=== PATIENT | female | born 1935 | race Hispanic/Latino ===

== ENCOUNTER 2019-05-14 18:56 | Emergency (ER) | payer OTHER ==
[~2019-05-14] VITALS: Ht 157.5 cm; Wt 48.1 kg
--- OUTSIDE RECORDS SUMMARY | 2019-05-14 18:59 | XMS REPORT | Clinical Summary ---
Author Author [facility] Address Unknown Phone Unavailable Care Team Providers Care Certified Surgical Tech/First Assistant Name Role Phone Carolyne Hogan MD PCP Allergies Comments Active Allergy Reactions Severity Noted Date Sulfa (Sulfonamide 01/23/2019 Antibiotics) Medications End Date Status Medication Sig Dispensed Refills Start Date Active losartan (COZAAR) 100 MG Take 100 mg 1 tablet by mouth 9 daily. Active amLODIPine (NORVASC) 10 Take 10 mg by 1 12/29/ mg tablet mouth daily. 9 Active ALPRAZolam (XANAX) 0.25 Take 0.25 mg 2 11/30/ MG tablet by mouth 2 9 (two) times a day as needed. Active traMADol-acetaminophen Take 1 tablet 0 (ULTRACET) 37.5-325 mg by mouth 9 per tablet every 12 (twelve) hours as needed. for pain Active Problems No known active problems Encounters Care Team Description Date Type Specialty Koffi Hernandez MD Primary osteoarthritis of right shoulder (Primary Dx); Chronic right shoulder pain; Contracture of joint of finger of right hand 04/04/2019 Office Visit Sports Medicine Reyna Maguire MD Bilateral hearing loss due to cerumen impaction (Primary Dx) 01/23/2019 Office Visit Otolaryngology after 05/13/2018 Social History Date Tobacco Use Types Packs/Day Years Used Never Smoker Smokeless Tobacco: Never Used Drinks/Week oz/Week Comments Alcohol Use No Alcohol Habits Answer Date Recorded How often do you have a drink containing alcohol? Never 01/23/2019 How many drinks containing alcohol do you have on Not asked a typical day when you are drinking? How often do you have six or more drinks on one Not asked occasion? Sex Assigned at Date Recorded Not on file Industry Job Start Date Occupation Not on file Not on file Not on file Travel End Travel History Travel Start No recent travel history available. Last Filed Vital Signs Reading Time Taken Comments Vital Sign 135/60 04/04/2019 9:35 AM CDT Blood Pressure 61 04/04/2019 9:35 AM CDT Pulse - - Temperature - - Respiratory Rate - - Oxygen Saturation - - Inhaled Oxygen Concentration - - Weight - - Height - - Body Mass Index Plan of Treatment Health Maintenance Due Date Last Done Comments SHINGLES VACCINES (#1) 1985 65+ PNEUMOCOCCAL VACCINE 01/07/2000 (1 of 2 - PCV13) INFLUENZA VACCINE 04/11/2019 Procedures Comments Procedure Name Priority Date/Time Associated Diagnosis XR SHOULDER 2+ VW RIGHT Routine 04/04/2019 Sprain of right shoulder, 10:02 AM CDT unspecified shoulder sprain type, initial encounter HI ARTHROCENTESIS Routine 04/04/2019 Primary osteoarthritis of ASPIR&/INJ MAJOR JT/BURSA 9:30 AM CDT right shoulder W/O US Chronic right shoulder pain after 05/13/2018 Results * XR Shoulder 2+ Vw Right (04/04/2019 10:02 AM CDT) Specimen Narrative Performed At [facility] Moderate glenohumeral joint space narrowing with scattered osteophytes. No obvious fractures or dislocations Performing Organization Address City/State/Zipcode Phone Number [facility] [address] [place] [address] * Large Joint Arthrocentesis: shoulder, R subacromial bursa (04/04/2019 9:30 AM CDT) Narrative Performed At Koffi Hernandez MD 04/04/2019 11:21 AM Large Joint Arthrocentesis: shoulder, R subacromial bursa Consent given by: patient Site marked: site marked Timeout: Immediately prior to procedure a time out was called to verify the correct patient, procedure, equipment, sales and support center agent and site/side marked as required Supporting Documentation Indications: pain Procedure Details Preparation: Patient was prepped and draped in the usual sterile fashion Location: shoulder - R subacromial bursa Right side: Needle size: 20 G Approach: lateral Right shoulder medications administered: 2 mL bupivacaine 0.25 % (2.5 mg/mL); 80 mg methylPREDNISolone acetate 80 mg/mL; 5 mL lidocaine 10 mg/mL (1 %) Patient tolerance: patient tolerated the procedure well with no immediate complications after 05/13/2018 Insurance Type Payer Benefit Subscriber ID Effective Phone Address Plan / Dates Group HMO BELA CRAMER xxxxxxxxx [id number] ANG kirby Advance Directives For more information, please contact: [phone] Patient Commission Sales Associate Explanation Type Date Recorded Advance Directives, Living Will and Medical Power of Hospice Care Transitions Coordinator
--- OUTSIDE RECORDS SUMMARY | 2019-05-14 19:02 | XMS REPORT | Summary of Care ---
Author Author [facility] Organization [facility] Address Unknown Phone Unavailable Care Team Providers Care Park Activities Coordinator Name Role Phone William Mittal PCP Encounter HQ Abigail(FIN) [phone] Date(s): 06/13/15 - 06/13/15 [facility] [address] [place] [address]- Discharge Diagnosis: GERD (gastroesophageal reflux disease) Discharge Disposition: Home Attending Physician: Izabela Patel DO Vital Signs Most recent to 1 2 oldest [Reference Range]: Height 157.48 cm (06/13/15 9:27 AM) Most recent to 1 2 oldest [Reference Range]: Temperature Oral 98.6 DegF 98.3 DegF [96.4-99.1 DegF] (06/13/15 1:00 PM) (06/13/15 9:27 AM) Most recent to 1 2 oldest [Reference Range]: Blood Pressure 132/74 mmHg 147/68 mmHg [90-140/60-90 mmHg] (06/13/15 1:00 PM) *HI* (06/13/15 9:27 AM) Most recent to 1 2 oldest [Reference Range]: Respiratory Rate 14 BRMIN 16 BRMIN [14-20 BRMIN] (06/13/15 1:00 PM) (06/13/15 9:27 AM) Most recent to 1 2 oldest [Reference Range]: Peripheral Pulse 78 bpm 72 bpm Rate [60-100 bpm] (06/13/15 1:00 PM) (06/13/15 9:27 AM) Most recent to 1 2 oldest [Reference Range]: Weight 47.727 kg (06/13/15 9:27 AM) Most recent to 1 2 oldest [Reference Range]: Body Mass Index 19.24 m2 (06/13/15 9:27 AM) Problem List Condition Effective Dates Status Health Status Informant Acute gastritis1 Resolved Benign essential 06/10/13 Active hypertension2 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, 4 CVA - Resolved Cerebrovascular accident(Confirmed) Diabetes mellitus Active type 2, controlled, with complications(Confir med) Dysphagia5, 6 11/12/14 Active Gastritis(Confirmed) Active Hernia of anterior 10/15/14 Active abdominal wall7, 8 Hyperlipidemia9, 10 10/15/14 Active Ysesveawwrtxhuj97 06/10/13 Active Hyperthyroidism(Conf Resolved irmed) Lntobnvwxill51, 13 11/27/14 Active Impacted zdpmrxi07 05/26/14 Resolved 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 2Data migrated from [employer] on 02/07/15. 3Data migrated from [employer] on 03/18/15. 4Data migrated from [employer] on 02/10/15. 5Data migrated from [employer] on 03/18/15. 6Data migrated from [employer] on 02/10/15. 7Data migrated from [employer] on 03/18/15. 8Data migrated from [employer] on 02/10/15. 9Data migrated from [employer] on 03/18/15. 10Data migrated from [employer] on 02/10/15. 11Data migrated from [employer] on 02/07/15. 12Data migrated from [employer] on 03/18/15. 13Data migrated from [employer] on 02/10/15. 14Data migrated from [employer] on 03/28/15. 15Data migrated from [employer] on 02/07/15. 16Data migrated from [employer] on 02/07/15. 17Data migrated from [employer] on 03/18/15. 18Data migrated from [employer] on 02/10/15. 19Data migrated from [employer] on 03/18/15. 20Data migrated from [employer] on 02/10/15. 21Data migrated from [employer] on 03/18/15. 22Data migrated from [employer] on 02/10/15. 23Data migrated from [employer] on 03/18/15. 24Data migrated from [employer] on 02/10/15. Allergies, Adverse Reactions, Alerts Substance Reaction Severity Status sulfa Active sulfa drugs1 Active 1Data migrated from [employer] on 04/09/15. Originally documented as SULFA. Medications famotidine 20 mg, 1 tab, Route: PO, Drug form: TAB, ONCE, Dosing Weight 47.727, kg, Priorit y: STAT, Start date: 06/13/15 11:04:00, Stop date: 06/13/15 11:04:00 Notes: (Same as: Pepcid) Start Date: 06/13/15 Stop Date: 06/13/15 Status: Completed Results No data available for this section Immunizations No data available for this section Procedures Procedure Date Related Diagnosis Body Site Endoscopy1 02/2015 Examining eye 02/2015 Bone density scan2 11/26/14 Diabetic foot examination 10/2014 Mammogram 10/2013 Bypass3 02/2013 Cholecystectomy 1980 Hysterectomy 1979 section 1Hiatus Hernia, severe gastritis 2Osteopenia left hip 3Bypass of the right leg Social History Social History Type Response Alcohol Past Smoking Status Former smoker; Type: Cigarettes; Number of years: 24; Started at age: 22.0; Stopped at age: 46; Previous treatment: None; Exposure to Tobacco Smoke None; Cigarette Smoking Last 365 Days No; Reg Smoking Cessation Counseling No Assessment and Plan No data available for this section
--- OUTSIDE RECORDS SUMMARY | 2019-05-14 19:02 | XMS REPORT | Summary of Care ---
Author Author [facility] Organization [facility] Address Unknown Phone Unavailable Care Team Providers Care Staple Side Laster Name Role Phone William Mittal PCP Encounter HQ Janethr_yuly(FIN) [phone] Date(s): 06/12/15 - 06/12/15 [facility] [address] [place] [address]- Discharge Diagnosis: Odynophagia Discharge Disposition: Home Attending Physician: Alina Camarena DO Vital Signs Most recent to 1 2 oldest [Reference Range]: Height 157.48 cm (06/12/15 5:12 PM) Most recent to 1 2 oldest [Reference Range]: Temperature Oral 98.0 DegF [96.4-99.1 DegF] (06/12/15 5:12 PM) Most recent to 1 2 oldest [Reference Range]: Blood Pressure 161/74 mmHg 150/73 mmHg [90-140/60-90 mmHg] *HI* *HI* (06/12/15 6:09 PM) (06/12/15 5:12 PM) Most recent to 1 2 oldest [Reference Range]: Respiratory Rate 18 BRMIN 18 BRMIN [14-20 BRMIN] (06/12/15 6:09 PM) (06/12/15 5:12 PM) Most recent to 1 2 oldest [Reference Range]: Peripheral Pulse 87 bpm 91 bpm Rate [60-100 bpm] (06/12/15 6:09 PM) (06/12/15 5:12 PM) Most recent to 1 2 oldest [Reference Range]: Weight 45.455 kg (06/12/15 5:12 PM) Most recent to 1 2 oldest [Reference Range]: Body Mass Index 18.33 m2 (06/12/15 5:12 PM) Problem List Condition Effective Dates Status Health Status Informant Acute gastritis1 Resolved Benign essential 06/10/13 Active hypertension2 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, 4 CVA - Resolved Cerebrovascular accident(Confirmed) Diabetes mellitus Active type 2, controlled, with complications(Confir med) Dysphagia5, 6 11/12/14 Active Gastritis(Confirmed) Active Hernia of anterior 10/15/14 Active abdominal wall7, 8 Hyperlipidemia9, 10 10/15/14 Active Gbggmgnxkwfuhdf42 06/10/13 Active Hyperthyroidism(Conf Resolved irmed) Nhvhxxeqckfe12, 13 11/27/14 Active Impacted uvtkmiy40 05/26/14 Resolved Mixed anxiety 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 21Data migrated from [facility] on 03/18/15. 22Data migrated from [facility] on 02/10/15. 23Data migrated from [facility] on 03/18/15. 24Data migrated from [facility] on 02/10/15. Allergies, Adverse Reactions, Alerts Substance Reaction Severity Status sulfa Active sulfa drugs1 Active 1Data migrated from [facility] on 04/09/15. Originally documented as SULFA. Medications famotidine 40 mg, Route: IVP, ONCE, Dosing Weight 45.455, kg, Priority: STAT, Start date: 1 17:43:00, Stop date: 06/12/15 17:43:00 Start Date: 06/12/15 Stop Date: 06/12/15 Status: Completed morphine Sulfate 4 mg, Route: IVP, ONCE, Dosing Weight 45.455, kg, Priority: STAT, Start date: 17:43:00, Stop date: 06/12/15 17:43:00 Start Date: 06/12/15 Stop Date: 06/12/15 Status: Completed ondansetron 4 mg, Route: IVP, Drug form: INJ, ONCE, Dosing Weight 45.455, kg, Priority: STAT , Start date: 06/12/15 17:43:00, Stop date: 06/12/15 17:43:00 Start Date: 06/12/15 Stop Date: 06/12/15 Status: Completed Sodium Chloride 0.9% (Bolus) IV 500 mL, 1,000 ml/hr, Infuse Over: 1 hr, Route: IV, ONCE, Priority: STAT, Dosing Weight 45.455 kg, Start date: 06/12/15 17:43:00, Duration: 1 doses or times, Sto p date: 06/12/15 17:43:00 Start Date: 06/12/15 Stop Date: 06/12/15 Status: Completed Sodium Chloride 0.9% IV 1,000 mL 1,000 mL, Rate: 75 ml/hr, Infuse over: 13.3 hr, Route: IV, Dosing Weight 45.455 kg, Total Volume: 1,000, Priority: STAT, Start date: 06/12/15 17:43:00, Duration : 1 doses or times, Stop date: 06/13/15 7:00:00 Start Date: 06/12/15 Stop Date: 06/12/15 Status: Discontinued Results ELECTROLYTES Most recent to 1 oldest [Reference Range]: Sodium Lvl [135-145 139 mEq/L mEq/L] (06/12/15 5:50 PM) Potassium Lvl 3.7 mEq/L [3.5-5.1 mEq/L] (06/12/15 5:50 PM) Chloride Lvl [95-109 104 mEq/L mEq/L] (06/12/15 5:50 PM) CO2 [24-32 mEq/L] 28 mEq/L (06/12/15 5:50 PM) AGAP [10.0-20.0 10.7 mEq/L mEq/L] (06/12/15 5:50 PM) CHEM PANEL Most recent to 1 oldest [Reference Range]: Creatinine Lvl 0.7 mg/dL [0.5-1.4 mg/dL] (06/12/15 5:50 PM) eGFR 82 mL/min/1.73m2 1 *NA* (06/12/15 5:50 PM) BUN [7-22 mg/dL] 18 mg/dL (06/12/15 5:50 PM) B/C Ratio [6-25] 26 *HI* (06/12/15 5:50 PM) Glucose Lvl [70-99 90 mg/dL mg/dL] (06/12/15 5:50 PM) Total Protein 7.6 g/dL [6.4-8.4 g/dL] (06/12/15 5:50 PM) Albumin Lvl [3.5-5.0 4.1 g/dL g/dL] (06/12/15 5:50 PM) Globulin [2.0-4.0 3.5 g/dL g/dL] (06/12/15 5:50 PM) A/G Ratio [0.7-1.6] 1.2 (06/12/15 5:50 PM) Calcium Lvl 9.5 mg/dL [8.5-10.5 mg/dL] (06/12/15 5:50 PM) ALT [0-65 unit/L] 25 unit/L (06/12/15 5:50 PM) AST [0-37 unit/L] 21 unit/L (06/12/15 5:50 PM) Alk Phos [39-136 83 unit/L unit/L] (06/12/15 5:50 PM) Bili Total [0.2-1.3 0.9 mg/dL mg/dL] (06/12/15 5:50 PM) Lipase Lvl [73-393 129 unit/L unit/L] (06/12/15 5:50 PM) 1Result Comment: The eGFR is calculated using the CKD-EPI formula. In most young, healthy individuals the eGFR will be >90 mL/min/1.73m2. The eGFR declines with age. An eGFR of 60-89 may be normal in some populations, particularly the elderly, for whom the CKD-EPI formula has not been extensively validated. Use of the eGFR is not recommended in the following populations: Individuals with unstable creatinine concentrations, including patients and those with serious co-morbid conditions. Patients with extremes in muscle mass or diet. The data above are obtained from the National Kidney Disease Education Program ( NKDEP) which additionally recommends that when the eGFR is used in patients with extremes of body mass index for purposes of drug dosing, the eGFR should be mul tiplied by the estimated BMI. HEMATOLOGY Most recent to 1 oldest [Reference Range]: WBC [3.7-10.4 K/CMM] 9.1 K/CMM (06/12/15 5:50 PM) RBC [4.20-5.40 4.45 M/CMM M/CMM] (06/12/15 5:50 PM) Hgb [12.0-16.0 g/dL] 13.3 g/dL (06/12/15 5:50 PM) Hct [36.0-48.0 %] 40.5 % (06/12/15 5:50 PM) MCV [80.0-98.0 fL] 91.2 fL (06/12/15 5:50 PM) MCH [27.0-31.0 pg] 29.9 pg (06/12/15 5:50 PM) MCHC [32.0-36.0 32.8 g/dL g/dL] (06/12/15 5:50 PM) RDW [11.5-14.5 %] 14.2 % (06/12/15 5:50 PM) Platelet [133-450 193 K/CMM K/CMM] (06/12/15 5:50 PM) MPV [7.4-10.4 fL] 9.6 fL (06/12/15 5:50 PM) Segs [45.0-75.0 %] 76.4 % *HI* (06/12/15 5:50 PM) Lymphocytes 15.9 % [20.0-40.0 %] *LOW* (06/12/15 5:50 PM) Monocytes [2.0-12.0 5.9 % %] (06/12/15 5:50 PM) Eosinophils [0.0-4.0 1.1 % %] (06/12/15 5:50 PM) Basophils [0.0-1.0 0.7 % %] (06/12/15 5:50 PM) Segs-Bands # 6.9 K/CMM [1.5-8.1 K/CMM] (06/12/15 5:50 PM) Lymphocytes # 1.4 K/CMM [1.0-5.5 K/CMM] (06/12/15 5:50 PM) Monocytes # [0.0-0.8 0.5 K/CMM K/CMM] (06/12/15 5:50 PM) Eosinophils # 0.1 K/CMM [0.0-0.5 K/CMM] (06/12/15 5:50 PM) Basophils # [0.0-0.2 0.1 K/CMM K/CMM] (06/12/15 5:50 PM) Immunizations No data available for this section Procedures Procedure Date Related Diagnosis Body Site Endoscopy1 02/2015 Examining eye 02/2015 Bone density scan2 11/26/14 Diabetic foot examination 10/2014 Mammogram 10/2013 Bypass3 02/2013 Cholecystectomy 1979 Hysterectomy 1979 section 1Hiatus Hernia, severe gastritis [...]
--- OUTSIDE RECORDS SUMMARY | 2019-05-14 19:02 | XMS REPORT | Continuity of Care Document ---
Author Author [facility] Organization [facility] Address Unknown Phone Unavailable Care Team Providers Care Computer Numerical Control Grinder Name Role Phone [facility] Unavailable Unavailable Problems Problem Status Onset Date Classification Date Reported Comments Source K21.9=GERD WO ESOPHAGITIS Active 04/24/2019 [facility] DX: K22.70=MCCLAIN'S ESOPHAGUS WITHOUT D Active 04/10/2019 [facility] K21.9 GASTRO-ESOPHAGEAL REFLUX DISEASE W Active 12/04/2018 [facility] Gastro-esophageal reflux disease without esophagitis 07/10/2018 01/20/2019 [facility] J40 Active 01/11/2018 [facility] Unsteadiness on feet 10/17/2017 01/18/2018 [facility] [place] UNSTEADINESS ON FEET Active 09/06/2017 [facility] [place] DX: OSTEOPOROSIS Active 04/13/2017 [facility] Infection of urinary tract Resolved 07/07/2016 Problem 04/21/2017 [facility] Chronic shoulder pain14 Active 10/06/2015 Problem 04/01/2019 per phone call to referral office [facility] [place] Chronic shoulder pain18 Active 10/06/2015 Problem 04/21/2017 per phone call to referral office [facility] Shoulder pain (finding) Active 10/06/2015 Problem 05/07/2019 per phone call to referral office [facility] Discharge Diagnosis: GERD 07/02/2015 07/05/2015 [facility] ACID REFLEX Active 07/02/2015 [facility] Fundoplication4 Resolved 06/26/2015 Problem 04/01/2019 done at [facility] [place] Fundoplication7 Resolved 06/26/2015 Problem 04/21/2017 done at [facility] Fundoplication (procedure) Resolved 06/26/2015 Problem 05/07/2019 done at [facility] DIABETES / DIETARY SURV/ HTN / BMI/ NAUS Active 06/25/2015 [facility] Discharge Diagnosis: Acute gastritis 06/17/2015 06/20/2015 [facility] REFLUX Active 06/17/2015 [facility] TROUBLE SWALLOWING Active 06/13/2015 [facility] OTHER Active 06/12/2015 [facility] Discharge Diagnosis: Odynophagia 06/12/2015 06/15/2015 [facility] UNK Active 04/30/2015 [facility] 787.2, 530.11, 533.00, 553.3 Active 04/30/2015 [facility] 787.2,530.11,535.00,553.3 Active 04/14/2015 [facility] 787.20,530.11,535.00,553.3 Active 04/14/2015 [facility] Xvltpsgmzywf49, 20 Active 11/27/2014 Problem 05/17/2015 Data migrated from [employer] on 03/18/15. Data migrated from [employer] on 02/10/15. 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 Data migrated from [employer] on 02/10/15. [facility] Phnqupleslbd36, 13 Active 11/27/2014 Problem 07/05/2015 Data migrated from [employer] on 03/18/15. Data migrated from [employer] on 02/10/15. [facility] OSTEOPENIA Active 11/24/2014 [facility] Dysphagia9, 10 Active 11/12/2014 Problem 05/17/2015 Data migrated from [employer] on 03/18/15. Data migrated from [employer] on 02/10/15. [facility] Dysphagia5, 6 Active 11/12/2014 Problem 04/21/2017 Data migrated from [employer] on 03/18/15. Data migrated from [employer] on 02/10/15. [facility] THROAT PAIN Active 11/07/2014 [facility] DYSPHAGIA, INABILITY TO TOLERATE FOOD Active 11/07/2014 [facility] Cobalamin deficiency3, 4 Active 10/15/2014 Problem 04/21/2017 Data migrated from [employer] on 03/18/15. Data migrated from [employer] on 02/10/15. [facility] Disorder of vision7, 8 Active 10/15/2014 Problem 05/17/2015 Data migrated from [employer] on 03/18/15. Data migrated from [employer] on 02/10/15. [facility] Foot pain11, 12 Active 10/15/2014 Problem 05/17/2015 Data migrated from [employer] on 03/18/15. Data migrated from [employer] on 02/10/15. [facility] Hernia of anterior abdominal wall14, 15 Active 10/15/2014 Problem 05/17/2015 Data migrated from [employer] on 03/18/15. Data migrated from [employer] on 02/10/15. [facility] Dsscsfbxewjepd05, 17 Active 10/15/2014 Problem 05/17/2015 Data migrated from [employer] on 03/18/15. Data migrated from [employer] on 02/10/15. [facility] Cuaktrnwbo67, 25 Active 10/15/2014 Problem 05/17/2015 Data migrated from [employer] on 03/18/15. Data migrated from [employer] on 02/10/15. [facility] Peripheral vascular sabjgwm83, 27 Active 10/15/2014 Problem 05/17/2015 Data migrated from [employer] on 03/18/15. Data migrated from [employer] on 02/10/15. [facility] Screening - health check28, 29 Active 10/15/2014 Problem 05/17/2015 Data migrated from [employer] on 03/18/15. Data migrated from [employer] on 02/10/15. [facility] Screening for malignant neoplasm of colon30, 31 Active 10/15/2014 Problem 05/17/2015 Data migrated from [employer] on 03/18/15. Data migrated from [employer] on 02/10/15. [facility] Unsteady gait34, 35 Active 10/15/2014 Problem 05/17/2015 Data migrated from [employer] on 03/18/15. Data migrated from [employer] on 02/10/15. [facility] Vitamin D lryqwzcwsx70, 37 Active 10/15/2014 Problem 05/17/2015 Data migrated from [employer] on 03/18/15. Data migrated from [employer] on 02/10/15. [facility] Hernia of anterior abdominal wall7, 8 Active 10/15/2014 Problem 07/05/2015 Data migrated from [employer] on 03/18/15. Data migrated from [employer] on 02/10/15. [facility] Hyperlipidemia9, 10 Active 10/15/2014 Problem 07/05/2015 Data migrated from [employer] on 03/18/15. Data migrated from [employer] on 02/10/15. [facility] Xfhkjmcvly31, 18 Active 10/15/2014 Problem 07/05/2015 Data migrated from [employer] on 03/18/15. Data migrated from [employer] on 02/10/15. [facility] Peripheral vascular qcodonb25, 20 Active 10/15/2014 Problem 07/05/2015 Data migrated from [employer] on 03/18/15. Data migrated from [employer] on 02/10/15. [facility] Unsteady gait21, 22 Active 10/15/2014 Problem 07/05/2015 Data migrated from [employer] on 03/18/15. Data migrated from [employer] on 02/10/15. [facility] Vitamin D snwtjuozrn54, 24 Active 10/15/2014 Problem 07/05/2015 Data migrated from [employer] on 03/18/15. Data migrated from [employer] on 02/10/15. [facility] Cobalamin deficiency2, 3 Active 10/15/2014 Problem 04/01/2019 Data migrated from [employer] on 03/18/15. Data migrated from [employer] on 02/10/15. [facility] Group,[facility] [place] Hernia of anterior abdominal wall5, 6 Active 10/15/2014 Problem 04/01/2019 Data migrated from [employer] on 03/18/15. Data migrated from [employer] on 02/10/15. [facility] Group,[facility] [place] Hyperlipidemia7, 8 Active 10/15/2014 Problem 04/01/2019 Data migrated from [employer] on 03/18/15. Data migrated from [employer] on 02/10/15. [facility] Group,[facility] [place] Peripheral vascular huzkisp33, 13 Active 10/15/2014 Problem 04/01/2019 Data migrated from [employer] on 03/18/15. Data migrated from [employer] on 02/10/15. Medical Group,[facility] [place] Unsteady gait15, 16 Active 10/15/2014 Problem 04/01/2019 Data migrated from [employer] on 03/18/15. Data migrated from [employer] on 02/10/15. Medical Group,[facility] Vitamin D khsykillnm79, 18 Active 10/15/2014 Problem 04/01/2019 Data migrated from [employer] on 03/18/15. Data migrated from [employer] on 02/10/15. [facility] Group,[facility] [place] Hernia of anterior abdominal wall8, 9 Active 10/15/2014 Problem 04/21/2017 Data migrated from [employer] on 03/18/15. Data migrated from [employer] on 02/10/15. [facility] Cfcvzbvdnwqivy36, 11 Active 10/15/2014 Problem 04/21/2017 Data migrated from [employer] on 03/18/15. Data migrated from [employer] on 02/10/15. [facility] Peripheral vascular gngdsiv74, 17 Active 10/15/2014 Problem 04/21/2017 Data migrated from [employer] on 03/18/15. Data migrated from [employer] on 02/10/15. [facility] Unsteady gait19, 20 Active 10/15/2014 Problem 04/21/2017 Data migrated from [employer] on 03/18/15. Data migrated from [employer] on 02/10/15. [facility] Vitamin D hrdbyqacwy93, 22 Active 10/15/2014 Problem 04/21/2017 Data migrated from [employer] on 03/18/15. Data migrated from [employer] on 02/10/15. [facility] Cobalamin deficiency (disorder) Active 10/15/2014 Problem 05/07/2019 Data migrated from [employer] on 03/18/15. Data migrated from [employer] on 02/10/15. Medical [facility] Hernia of anterior abdominal wall (disorder) Active 10/15/2014 Problem 05/07/2019 Data migrated from [employer] on 03/18/15. Data migrated from [employer] on 02/10/15. [facility] Hyperlipidemia (disorder) Active 10/15/2014 Problem 05/07/2019 Data migrated from [employer] on 03/18/15. Data migrated from [employer] on 02/10/15. [facility] disease (disorder) Active 10/15/2014 Problem 05/07/2019 Data migrated from [employer] on 03/18/15. Data migrated from [employer] on 02/10/15. [facility] Unsteady gait (finding) Active 10/15/2014 Problem 05/07/2019 Data migrated from [employer] on 03/18/15. Data migrated from [employer] on 02/10/15. [facility] Vitamin D deficiency (disorder) Active 10/15/2014 Problem 05/07/2019 Data migrated from [employer] on 03/18/15. Data migrated from [employer] on 02/10/15. [facility] Impacted ebczgkg95 Resolved 05/26/2014 Problem 05/17/2015 Data migrated from [employer] on 03/28/15. [facility] Impacted qwpthji21 Resolved 05/26/2014 Problem 07/05/2015 Data migrated from [employer] on 03/28/15. [facility] Impacted Resolved 05/26/2014 Problem 04/21/2017 Data migrated from [employer] on 03/28/15. [facility] Mixed anxiety and depressive rvgzkeaz59 Active 05/08/2014 Problem 05/17/2015 Data migrated from [employer] on 02/07/15. [facility] Mixed anxiety and depressive fimadcvc41 Active 05/08/2014 Problem 07/05/2015 Data migrated from [employer] on 02/07/15. [facility] Mixed anxiety and depressive Active 05/08/2014 Problem 04/01/2019 Data migrated from [employer] on 02/07/15. [facility] Group,[facility] [place] Mixed anxiety and depressive kynfuvjx99 Active 05/08/2014 Problem 04/21/2017 Data migrated from [employer] on 02/07/15. [facility] Mixed anxiety and depressive disorder (disorder) Active 05/08/2014 Problem 05/07/2019 Data migrated from [employer] on 02/07/15. [facility] CHEST PAIN Active 10/17/2013 [facility] Benign essential hypertension2 Active 06/10/2013 Problem 04/21/2017 Data migrated from [employer] on 02/07/15. [facility] Hemiparesis as late effect of cerebrovascular ewolrdrh61 Active 06/10/2013 Problem 05/17/2015 Data migrated from [employer] on 02/07/15. [facility] Nfiujalcoolmnim36 Active 06/10/2013 Problem 05/17/2015 Data migrated from [employer] on 02/07/15. [facility] Xlunbhobhfdtfi58 Active 06/10/2013 Problem 05/17/2015 Data migrated from [employer] on 02/07/15. [facility] Sekjacrgqpvtglq41 Active 06/10/2013 Problem 07/05/2015 Data migrated from [employer] on 02/07/15. [facility] Iprlgmqibyulfm50 Active 06/10/2013 Problem 07/05/2015 Data migrated from [employer] on 02/07/15. [facility] Benign essential hypertension1 Active 06/10/2013 Problem 04/01/2019 Data migrated from [employer] on 02/07/15. [facility], [facility], [facility] [place] Hyperthyroidism9 Active 06/10/2013 Problem 04/01/2019 Data migrated from [employer] on 02/07/15. [facility], [facility], [facility] [place] Axjfmbdzxneqru52 Active 06/10/2013 Problem 04/01/2019 Data migrated from [employer] on 02/07/15. [facility], [facility], [facility] [place] Tzibqzworgdhkjr50 Active 06/10/2013 Problem 04/21/2017 Data migrated from [employer] on 02/07/15. [facility] Bokfhukukfgygh22 Active 06/10/2013 Problem 04/21/2017 Data migrated from [employer] on 02/07/15. [facility] Benign essential hypertension (disorder) Active 06/10/2013 Problem 05/07/2019 Data migrated from [employer] on 02/07/15. [facility] Hyperthyroidism (disorder) Active 06/10/2013 Problem 05/07/2019 Data migrated from [employer] on 02/07/15. [facility] Osteoarthritis (disorder) Active 06/10/2013 Problem 05/07/2019 Data migrated from [employer] on 02/07/15. [facility] Group,[facility] Disorder associated with type 2 diabetes mellitus5, 6 Active 09/11/1959 Problem 05/17/2015 Data migrated from [employer] on 03/18/15. Data migrated from [employer] on 02/10/15. [facility] CVA - Cerebrovascular accident Resolved Problem 04/21/2017 [facility] Diabetes mellitus Active Problem 05/17/2015 [facility] DM (Confirmed) Active Problem 05/17/2015 [facility] HTN - Hypertension Active Problem 05/17/2015 [facility] Hyperthyroidism Resolved Problem 04/21/2017 [facility] Final: 05/17/2015 [facility] Acute gastritis1 Resolved Problem 04/21/2017 Data migrated from [employer] on 03/28/15. [facility] Gastritis Active Problem 04/21/2017 [facility] Diabetes mellitus type 2, controlled, with complications Active Problem 04/01/2019 [facility] [place] GERD (Confirmed) Active Problem 04/01/2019 [facility], [facility] [place] History of CVA (Confirmed) Active Problem 04/01/2019 [facility] [place] Osteoporosis Active Problem 04/01/2019 [facility], [facility] [place] UI (Confirmed) Active Problem 04/01/2019 [facility], [facility] [place] Constipation Active Problem 04/21/2017 [facility] Cerumen impaction Active Problem 04/21/2017 [facility] Elbow pain Active Problem 04/21/2017 [facility] PVD (Confirmed) Active Problem 04/21/2017 [facility] Recurrent urinary tract infection Active Problem 04/21/2017 [facility] Shoulder pain Active Problem 04/21/2017 [facility] Diabetes mellitus type 2, controlled Resolved Problem 04/21/2017 [facility] Infection, upper respiratory Active Problem 04/21/2017 [facility] Frail Elderly Active Problem 03/27/2018 [facility] [place] Knee pain Active Problem 09/09/2017 [facility] Muscle weakness 01/18/2018 [facility] [place] Other abnormalities of gait and mobility 01/18/2018 [facility] [place] Stiffness of right shoulder, not elsewhere classified 01/18/2018 [facility] [place] Stiffness of right knee, not elsewhere classified 01/18/2018 [facility] Type 2 diabetes mellitus without complications 01/18/2018 [facility] Essential hypertension 01/18/2018 [facility] Age-related osteoporosis without current pathological fracture 01/18/2018 [facility] Diaphragmatic hernia without obstruction or gangrene 01/18/2018 [facility] Pedal edema Active Problem 04/01/2019 [facility] Diabetic complication (disorder) Active Problem 05/07/2019 [facility] Edema of foot (finding) Active Problem 05/07/2019 [facility] Gastroesophageal reflux disease (disorder) Active Problem 05/07/2019 [facility] History of - CVA (context-dependent category) Active Problem 05/07/2019 [facility] Osteoporosis (disorder) Active Problem 05/07/2019 Medical [facility] Urinary incontinence (finding) Active Problem 05/07/2019 [facility] DYSPHAGIA NOS Active [facility] REFLUX ESOPHAGITIS Active [facility] ACUTE GASTRITIS Active [facility] DIAPHRAGMATIC HERNIA Active [facility] SINGLE LB/BY Active [facility] PALPITATIONS Active [facility] TYPE 2 DIABETES MELLITUS WITHOUT COMPLIC Active [facility] DIETARY COUNSELING AND SURVEILLANCE Active [facility] BODY MASS INDEX (BMI) 19 OR LESS, ADULT Active [facility] AGE-RELATED OSTEOPOROSIS W/O CURRENT PAT Active [facility] MCCLAIN'S ESOPHAGUS WITHOUT DYSPLASIA Active [facility] DYSPHAGIA, UNSPECIFIED Active [facility] GASTRO-ESOPHAGEAL REFLUX DISEASE WITHOUT Active [facility] Medications Medication Details Route Status Patient Instructions Ordering Provider Order Date Source amLODIPine 10 mg oral tablet 10 mg=1 tab, PO, Daily, # 90 tab, 1 Refill(s), [facility]acy: [id number] Active 05/03/2019 [facility] amLODIPine 5 mg oral tablet 5 mg=1 tab, PO, Daily, # 90 tab, 1 Refill(s), Pharmacy: [id number] Active 04/16/2019 [facility] tramadol hydrochloride 50 MG Oral Tablet 50 mg=1 tab, PO, Q8H, PRN Pain, X 20 day, # 60 tab, 0 Refill(s) Active 04/12/2019 [facility] Ergocalciferol 67903 UNT Oral Capsule 50,000 IntlUnit=1 cap, PO, qWeek, # 12 cap, 1 Refill(s), [id number] Active 03/21/2019 [facility] losartan 100 mg oral tablet =1 tab, PO, Daily, # 90 tab, 1 Refill(s), [id number] Active 03/21/2019 [facility] Esomeprazole 40 MG Enteric Coated Capsule 40 mg=1 cap, PO, Daily, # 90 cap, 1 Refill(s), [id number] Active 03/21/2019 [facility] amLODIPine 5 mg oral tablet 5 mg=1 tab, PO, Daily, # 90 tab, 1 Refill(s), [id number] Active 03/21/2019 [facility] Alendronic acid 70 MG Oral Tablet 70 mg=1 tab, PO, Q7D, with 6 to 8 ounces plain water, at least 30 minutes before first food, beverage, or medication of the day, # 12 tab, 3 Refill(s), [id number] Active 03/21/2019 [facility] DME Prescription See Instructions, MISC, ONCE, rolling walker, # 1 unit, 0 Refill(s) Active 03/01/2019 [facility] nitrofurantoin macrocrystals 100 mg oral capsule (Macrodantin) 100 mg=1 cap, PO, BID, X 7 day, # 14 cap, 0 Refill(s), [id number] Active 02/26/2019 [facility] Acetaminophen 325 MG / tramadol hydrochloride 37.5 MG Oral Tablet 1 tab, PO, Q12H, PRN Pain, X 20 day, # 40 tab, 0 Refill(s) Active 02/26/2019 [facility] Esomeprazole 40 MG Enteric Coated Capsule 40 mg=1 cap, PO, Daily, # 90 cap, 1 Refill(s), [id number] Active 02/07/2019 [facility] amLODIPine 5 mg oral tablet 5 mg=1 tab, PO, Daily, # 90 tab, 1 Refill(s), [id number] Active 01/24/2019 [facility] ciprofloxacin 500 mg oral tablet 500 mg=1 tab, PO, Q12H, for UTI, X 3 day, # 6 tab, 0 Refill(s), [id number] Active 01/03/2019 [facility] gabapentin 100 MG Oral Capsule 100 mg=1 cap, PO, BID, # 180 cap, 1 Refill(s), [id number] Active 12/18/2018 [facility] Diclofenac Sodium 0.01 MG/MG Topical Gel 4 gm=1 appl, TOP, QID, PRN for pain, # 100 gm, 2 Refill(s), [id number] Active 12/18/2018 [facility] irbesartan 150 mg oral tablet =1 tab, PO, Daily, # 30 tab, Refill(s) 5, [id number] No Longer Active 11/30/2018 [facility] ONE TOUCH DELICA LANCETS N/A LANC See Instructions, # 100 ea, Refill(s) 2, USE TO TEST BLOOD GLUCOSE ONCE DAILY, Pharmacy: [facility] No Longer Active 11/29/2018 [facility] ONE TOUCH VERIO STRIPS N/A STRIPS See Instructions, # 100 ea, Refill(s) 2, USE TO TEST BLOOD GLUCOSE ONCE DAILY, Pharmacy: [facility] No Longer Active 11/29/2018 [facility] tramadol hydrochloride 50 MG Oral Tablet 50 mg=1 tab, PO, Q12H, PRN Pain, X 20 day, # 40 tab, 0 Refill(s) No Longer Active 10/16/2018 [facility] carbamide peroxide 65 MG/ML Otic Solution [Debrox] 5 drp, BOTH EARS, TID, X 10 day, # 15 ml, 0 Refill(s), [id number] No Longer Active 10/15/2018 [facility] Diclofenac Sodium 0.01 MG/MG Topical Gel 4 gm=1 appl, TOP, QID, PRN for pain, # 100 gm, 2 Refill(s), [id number] No Longer Active 10/15/2018 [facility] amLODIPine 10 mg oral tablet See Instructions, TAKE 1 TABLET BY MOUTH EVERY DAY, # 90 tab, 1 Refill(s) No Longer Active 10/15/2018 [facility] irbesartan 150 mg oral tablet 150 mg=1 tab, PO, Daily, # 30 tab, 0 Refill(s) No Longer Active 10/15/2018 [facility] Famotidine 20 MG Oral Tablet =1 tab, PO, BID, # 120 tab, Refill(s) 1, Pharmacy: [facility] #[id number] No Longer Active 10/01/2018 [facility] tramadol hydrochloride 50 MG Oral Tablet 50 mg=1 tab, PO, BID, X 15 day, # 30 tab, 0 Refill(s) No Longer Active 08/31/2018 [facility] Esomeprazole 40 MG Enteric Coated Capsule 40 mg=1 cap, PO, Daily, # 90 cap, 0 Refill(s), given to patient Active 06/12/2018 [facility] Famotidine 20 MG Oral Tablet 20 mg=1 tab, PO, BID, # 120 tab, 1 Refill(s), Pharmacy: [facility]/pharmacy #[id number] No Longer Active 06/12/2018 [facility] DME Prescription See Instructions, MISC, ONCE, AFO, # 1 unit, 0 Refill(s) No Longer Active 05/04/2018 [facility] Diclofenac Sodium 0.01 MG/MG Topical Gel 4 gm=1 appl, TOP, BID, PRN Apply to affected area, # 100 gm, 1 Refill(s), Pharmacy: [facility]/pharmacy #[id number] Active 04/04/2018 [facility] tramadol hydrochloride 50 MG Oral Tablet 50 mg=1 tab, PO, Q8H, PRN Pain, # 60 tab, 0 Refill(s) Inactive 04/04/[facility] ondansetron 4 mg oral disintegrating strip 4 mg=1 ea, PO, TID, # 30 strip, 1 Refill(s), Pharmacy: [facility]/pharmacy #[id number] Active 03/24/2018 [facility] Brompheniramine Maleate 0.4 MG/ML / Dextromethorphan Hydrobromide 2 MG/ML / Pseudoephedrine Hydrochloride 6 MG/ML Oral Solution [Bromfed DM] 5 mL, PO, TID, PRN cough, X 10 day, # 150 mL, 0 Refill(s), Pharmacy: [facility]/pharmacy #[id number] Active 01/11/2018 [facility] Rocephin 1,000 mg, Route: IM, ONCE, Dosing Weight 43.636, kg, Start date: 01/11/18 9:30:00 CDT, Stop date: 01/11/18 9:30:00 CDT Inactive 01/11/2018 [facility] predniSONE 10 mg oral tablet 10 mg=1 tab, PO, Daily, X 5 day, # 5 tab, 0 Refill(s), [id number] 01/11/2018 [facility] Levofloxacin 500 MG Oral Tablet [Levaquin] 500 mg=1 tab, PO, Q24H, X 7 day, # 7 tab, 0 Refill(s), [id number] Active 01/11/2018 [facility] triamcinolone ACETONIDE 40 mg/mL injectable suspension 40 mg, Route: IM, ONCE, Dosing Weight 43.636, kg, Start date: 01/11/18 9:30:00 CDT, Stop date: 01/11/18 9:30:00 CDT Inactive 01/11/2018 [facility] Brompheniramine Maleate 0.4 MG/ML / Dextromethorphan Hydrobromide 2 MG/ML / Pseudoephedrine Hydrochloride 6 MG/ML Oral Solution [Bromfed DM] 5 mL, PO, TID, PRN cough, X 10 day, # 150 mL, 0 Refill(s), [id number] Active 01/01/2018 [facility] azithromycin 250 mg oral tablet 250 mg=1 tab, PO, Daily, take 2 tablets on the first day, 1 tablet daily to continue, X 5 day, # 6 tab, 0 Refill(s), [id number] Active 01/01/2018 [facility] Ondansetron 4 MG Disintegrating Tablet 4 mg=1 tab, PO, TID, PRN Nausea / Vomiting, Dissolve tab under tongue, # 10 tab, 0 Refill(s), Pharmacy: [facility]/pharmacy #[id number] No Longer Active 12/11/2017 [facility] gabapentin 100 MG Oral Capsule 100 mg=1 cap, PO, BID, # 90 cap, 1 Refill(s), Pharmacy: [facility]/pharmacy #[id number] Active 12/11/2017 [facility] valACYclovir 1 g oral tablet 1,000 mg, PO, TID, X 7 day, # 21 tab, 0 Refill(s), [id number] No Longer Active 12/11/2017 [facility] amLODIPine 10 mg oral tablet See Instructions, TAKE 1 TABLET BY MOUTH EVERY DAY, # 90 tab, 1 Refill(s) No Longer Active 12/05/2017 [facility] Esomeprazole 40 MG Enteric Coated Capsule [Nexium] 40 mg=1 cap, PO, Daily, # 90 cap, 1 Refill(s) Active 12/05/2017 [facility] Docusate Sodium 100 MG Oral Capsule 100 mg=1 cap, PO, Daily, PRN Constipation, # 90 cap, 1 Refill(s), [id number] Active 08/14/2017 [facility] Ondansetron 0.8 MG/ML Oral Solution [Zofran] 4 mg=5 mL, PO, BID, PRN Nausea, X 14 day, # 140 mL, 0 Refill(s), [id number] Active 07/02/2015 [facility] famotidine 40 mg/5 mL oral liquid 40 mg=5 ml, PO, BID, # 60 ml, 0 Refill(s), [id number] Active 07/02/2015 [facility] Sucralfate 100 MG/ML Oral Suspension 1 gm=10 ml, PO, Before Meals & Bedtime, # 200 ml, 1 Refill(s), [id number] Active 07/02/2015 [facility] GI cocktail 30 mL, Route: PO, Dosing Weight 44.545, kg, ONCE, STAT, Start date: 07/02/15 12:52:00, Stop date: 07/02/15 12:52:00 Inactive 07/02/2015 [facility] pantoprazole 40 mg, Route: IVP, ONCE, Dosing Weight 44.545, kg, For IV push reconstitute with 10 ml 0.9% sodium chloride and push over at least 3 minutes, Priority: STAT, Start date: 07/02/15 12:52:00, Stop date: 07/02/15 12:52:00 Inactive 07/02/2015 [facility] Famotidine 20 mg, Route: IVP, ONCE, Dosing Weight 44.545, kg, Priority: STAT, Start date: 07/02/15 12:52:00, Stop date: 07/02/15 12:52:00 Inactive 07/02/2015 [facility] Saline Flush 0.9% 10 mL, Route: IVP, Drug Form: INJ, Dosing Weight 44.545, kg, PRN, PRN Line Flush, Start date: 07/02/15 12:52:00, Duration: 30 day, Stop date: 08/01/15 11:51:00Notes: (Same as: BD Posiflush) Inactive 07/02/2015 [facility] Sucralfate 100 MG/ML Oral Suspension [Carafate] 1 gm=10 ml, PO, Before Meals & Bedtime, # 200 ml, 0 Refill(s), Pharmacy: [facility]/pharmacy #[id number] Active 06/17/2015 [facility] Protonix 40 mg, Route: IVP, ONCE, Dosing Weight 45.455, kg, Priority: STAT, Start date: 06/17/15 14:10:00, Stop date: 06/17/15 14:10:00 Inactive 06/17/2015 [facility] GI cocktail 30 mL, Route: PO, Dosing Weight 45.455, kg, ONCE, STAT, Start date: 06/17/15 14:07:00, Stop date: 06/17/15 14:07:00 Inactive 06/17/2015 [facility] Famotidine 20 mg, Route: IVP, ONCE, Dosing Weight 45.455, kg, Priority: STAT, Start date: 06/17/15 14:07:00, Stop date: 06/17/15 14:07:00 Inactive 06/17/2015 [facility] Sodium Chloride 0.154 MEQ/ML Injectable Solution 1,000 mL, Infuse Over: 1 hr, Route: IV, ONCE, Priority: STAT, Dosing Weight 45.455 kg, Start date: 06/17/15 14:07:00, Duration: 1 doses or times, Stop date: 06/17/15 14:07:00 Inactive 06/17/2015 [facility] Saline Flush 0.9% 10 mL, Route: IVP, Drug Form: INJ, Dosing Weight 45.455, kg, PRN, PRN Line Flush, Start date: 06/17/15 14:07:00, Duration: 30 day, Stop date: 07/17/15 13:06:00 Inactive 06/17/2015 [facility] Famotidine 20 mg, 1 tab, Route: PO, Drug form: TAB, ONCE, Dosing Weight 47.727, kg, Priority: STAT, Start date: 06/13/15 11:04:00, Stop date: 06/13/15 11:04:00Notes: (Same as: Pepcid) Inactive 06/13/2015 [facility] Morphine 4 mg, Route: IVP, ONCE, Dosing Weight 45.455, kg, Priority: STAT, Start date: 06/12/15 17:43:00, Stop date: 06/12/15 17:43:00 Inactive 06/12/2015 [facility] Ondansetron 4 mg, Route: IVP, Drug form: INJ, ONCE, Dosing Weight 45.455, kg, Priority: STAT, Start date: 06/12/15 17:43:00, Stop date: 06/12/15 17:43:00 Inactive 06/12/2015 [facility] Famotidine 40 mg, Route: IVP, ONCE, Dosing Weight 45.455, kg, Priority: STAT, Start date: 06/12/15 17:43:00, Stop date: 06/12/15 17:43:00 Inactive 06/12/2015 [facility] Sodium Chloride 0.154 MEQ/ML Injectable Solution 500 mL, 1,000 ml/hr, Infuse Over: 1 hr, Route: IV, ONCE, Priority: STAT, Dosing Weight 45.455 kg, Start date: 06/12/15 17:43:00, Duration: 1 doses or times, Stop date: 06/12/15 17:43:00 Inactive 06/12/2015 [facility] Aspirin 0 Refill(s) Active 05/13/2015 [facility] Acetaminophen 300 MG / Codeine Phosphate 30 MG Oral Tablet [Tylenol with Codeine #3] 1 - 2 tab, PO, Q4H, PRN Pain, # 20 tab, 0 Refill(s) Active 05/13/2015 [facility] pantoprazole 40 mg oral enteric coated tablet 40 mg=1 tab, PO, Daily, # 30 tab, 0 Refill(s) Active 05/13/2015 [facility] Sodium Chloride 0.154 MEQ/ML Injectable Solution 500 mL, Rate: 25 ml/hr, Infuse over: 20 hr, Route: IV, Dosing Weight 58.455 kg, Total Volume: 500, Start date: 11/08/14 14:32:00, Duration: 30 day, Stop date: 12/08/14 14:31:00 Inactive 11/08/2014 [facility] pantoprazole 40 MG Enteric Coated Tablet [Protonix] 40 mg=1 tab, PO, Daily, # 30 tab, 0 Refill(s) Active 11/08/2014 [facility] Sucralfate 100 MG/ML Oral Suspension 1 gm=10 mL, PO, BID, # 600 mL, 0 Refill(s) Active 11/08/2014 [facility] lactobacillus rhamnosus GG 1 cap, Route: PO, Drug Form: CAP, Daily, Start date: 11/08/14 9:00:00, Duration: 30 day, Stop date: 12/07/14 9:00:00Notes: Same as Culturelle Inactive 11/08/2014 [facility] hydrochlorothiazide 25 mg oral tablet 25 mg, 1 tab, Route: PO, Drug form: TAB, Daily, Start date: 11/08/14 9:00:00, Duration: 30 day, Stop date: 12/07/14 9:00:00Notes: (Same as: Hydrodiuril) With food. Inactive 11/08/2014 [facility] Methimazole 10 mg, 1 tab, Route: PO, Drug form: TAB, Daily, Dosing Weight 58.455, kg, Start date: 11/08/14 9:00:00, Duration: 30 day, Stop date: 12/07/14 9:00:00 Inactive 11/08/2014 [facility] Metformin 500 mg, 1 tab, Route: PO, Drug form: TAB, Daily, Dosing Weight 58.455, kg, Start date: 11/08/14 9:00:00, Duration: 30 day, Stop date: 12/07/14 9:00:00Notes: (Same as: Glucophage) Take with meal Inactive 11/08/2014 [facility] Lactobacillus Sporogenes 1 cap, Route: PO, Dosing Weight 58.455, kg, Daily, Start date: 11/08/14 9:00:00, Duration: 30 day, Stop date: 12/07/14 9:00:00 Inactive 11/08/2014 [facility] Hydrochlorothiazide 25 MG / Losartan Potassium 100 MG Oral Tablet 1 tab, Route: PO, Drug Form: TAB, Dosing Weight 58.455, kg, Daily, Start date: 11/08/14 9:00:00, Duration: 30 day, Stop date: 12/07/14 9:00:00 Inactive 11/08/2014 [facility] aspirin 81 mg, 1 tab, Route: PO, Drug form: ECTAB, Daily, Dosing Weight 58.455, kg, Start date: 11/08/14 9:00:00, Duration: 30 day, Stop date: 12/07/14 9:00:00Notes: Do not crush or chew. (Same As: Ecotrin) Inactive 11/08/2014 [facility] Amlodipine 5 mg, 1 tab, Route: PO, Drug form: TAB, Q12H, Dosing Weight 58.455, kg, Start date: 11/08/14 9:00:00, Duration: 30 day, Stop date: 12/07/14 21:00:00Notes: (Same as: Norvasc) Inactive 11/08/2014 [facility] Alprazolam 0.25 mg, 1 tab, Route: PO, Drug form: TAB, BID, Dosing Weight 58.455, kg, Start date: 11/08/14 9:00:00, Duration: 30 day, Stop date: 12/07/14 17:00:00Notes: With food or milk (Same as: Xanax) Inactive 11/08/2014 [facility] Cozaar 100 mg, 2 tab, Route: PO, Drug form: TAB, Daily, Start date: 11/08/14 9:00:00, Duration: 30 day, Stop date: 12/07/14 9:00:00Notes: (Same as: Cozaar) Inactive 11/08/2014 [facility] Metformin 500 mg, PO, Daily, 0 Refill(s) Active 11/07/2014 [facility] Hydrochlorothiazide 25 MG / Losartan Potassium 100 MG Oral Tablet 1 tab, PO, Daily, # 30 tab, 0 Refill(s) Active 11/07/2014 [facility] Acidophilus Probiotic Blend 1 cap, PO, Daily, 0 Refill(s) Active 11/07/2014 [facility] Ativan 1 mg, Route: IVP, Drug form: INJ, ONCE, Dosing Weight 62.727, kg, PRN Anxiety, Start date: 11/07/14 13:52:00 Inactive 11/07/2014 [facility] Carafate 1 gm, 10 mL, Route: PO, Drug form: SUSP, BID, Dosing Weight 62.727, kg, Priority: NOW, Start date: 11/07/14 12:33:00, Duration: 30 day, Stop date: 12/07/14 9:00:00Notes: Enteral feeds may interfere with the absorption of this medication. Shake well. Take 1 hr before or 2 hrs after antacids, dairy pdt, minerals & meals. (Same As: Carafate) No Longer Active 11/07/2014 [facility] Protonix 40 mg, Route: IVP, Drug form: INJ, Daily, Dosing Weight 62.727, kg, Patient is NPO, Priority: NOW, Start date: 11/07/14 12:32:00, Duration: 30 day, Stop date: 12/07/14 9:00:00Notes: For IV push recon stitute with 10 ml 0.9% sodium chloride and push over 2 minutes. (Same as: Protonix) No Longer Active 11/07/2014 [facility] Insulin, Aspart, Human 4 unit, 0.04 mL, Route: SUB-Q, Drug form: SOLN, TID-Before Meals, Dosing Weight 62.727, kg, PRN Blood Glucose Results, Start date: 11/07/14 12:29:00, Duration: 30 day, Stop date: 12/07/14 12:28:00Notes: Roll in palms of hands gently; Do not shake vigorously. (Same as: NovoLOG) "single patient use only" Stable for 28 days at room temperature. Expires in days from Date No Longer Active 11/07/2014 [facility] Glucagon 1 mg, Route: IM, Drug form: PDR/INJ, PRN, Dosing Weight 62.727, kg, PRN Blood Glucose Results, Start date: 11/07/14 12:29:00, Duration: 30 day, Stop date: 12/07/14 13:28:00 No Longer Active 11/07/2014 [facility] Dextrose 50% Syringe 25 gm, 50 mL, Route: IVP, Drug Form: INJ, Dosing Weight 62.727, kg, PRN, PRN Blood Glucose Results, Start date: 11/07/14 12:29:00, Duration: 30 day, Stop date: 12/07/14 13:28:00 No Longer Active 11/07/2014 [facility] Docusate 100 mg, 1 cap, Route: PO, Drug form: CAP, BID, Dosing Weight 62.727, kg, PRN Constipation, Start date: 11/07/14 12:24:00, Duration: 30 day, Stop date: 12/07/14 12:23:00Notes: (Same as: Colace) (Do Not Crush) No Longer Active 11/07/2014 [facility] Ondansetron 4 mg, 2 mL, Route: IVP, Drug form: INJ, Q8H, Dosing Weight 62.727, kg, PRN Nausea & Vomiting, Start date: 11/07/14 12:24:00, Duration: 30 day, Stop date: 12/07/14 12:23:00Notes: (Same as: Zofran) No Longer Active 11/07/2014 [facility] Coreg 3.125 mg, 1 tab, Route: PO, Drug form: TAB, Q12H, Dosing Weight 57.727, kg, Start date: 10/18/13 9:00:00, Duration: 30 day, Stop date: 11/16/13 21:00:00Give with food. (Same As: Coreg) Inactive [facility] 10/18/2013 [facility] enoxaparin 40 mg, 0.4 mL, Route: SUB-Q, Drug form: INJ, [id number], Dosing Weight 57.727, kg, Start date: 10/18/13 9:00:00, Duration: 30 day, Stop date: 11/16/13 9:00:00(Same as: Lovenox) Inactive [facility] 10/18/2013 [facility] Saline Flush 0.9% 5 ml, Route: IVP, Drug Form: INJ, Dosing Weight 63.636, kg, Q12H, Start date: 10/18/13 9:00:00, Duration: 30 day, Stop date: 11/16/13 21:00:00(Same as: BD Posiflush) Inactive [facility] 10/18/2013 [facility] methimazole 10 mg, 2 tab, Route: PO, Drug form: TAB, Daily, Dosing Weight 57.727, kg, Start date: 10/18/13 9:00:00, Duration: 30 day, Stop date: 11/16/13 9:00:00 Inactive [facility] 10/18/2013 [facility] hydrochlorothiazide 25 mg, 1 tab, Route: PO, Drug form: TAB, Daily, Dosing Weight 57.727, kg, Start date: 10/18/13 9:00:00, Duration: 30 day, Stop date: 11/16/13 9:00:00(Same as: Hydrodiuril) With food. Inactive [facility] 10/18/2013 [facility] losartan 100 mg, 2 tab, Route: PO, Drug form: TAB, Daily, Dosing Weight 57.727, kg, Start date: 10/18/13 9:00:00, Duration: 30 day, Stop date: 11/16/13 9:00:00(Same as: Cozaar) Inactive [facility] 10/18/2013 [facility] aspirin 81 mg, 1 tab, Route: PO, Drug form: CHEWTAB, Daily, Dosing Weight 57.727, kg, Start date: 10/18/13 9:00:00, Duration: 30 day, Stop date: 11/16/13 9:00:00Take with food. Inactive [facility] 10/18/2013 [facility] amLODIPine 5 mg, 1 tab, Route: PO, Drug form: TAB, Daily, Dosing Weight 57.727, kg, Start date: 10/18/13 9:00:00, Duration: 30 day, Stop date: 11/16/13 9:00:00(Same as: Norvasc) Inactive [facility] 10/18/2013 [facility] ALPRAZOLam 0.25 mg, 1 tab, Route: PO, Drug form: TAB, BID, Dosing Weight 57.727, kg, Start date: 10/18/13 9:00:00, Duration: 30 day, Stop date: 11/16/13 17:00:00With food or milk (Same as: Xanax) Inactive [facility] 10/18/2013 [facility] NS 1,000 mL 1,000 mL, Rate: 75 ml/hr, Infuse over: 13.3 hr, Route: IV, Dosing Weight 57.727 kg, Total Volume: 1,000, Start date: 10/18/13 4:27:00, Duration: 30 day, Stop date: 11/17/13 4:26:00 Inactive [facility] 10/18/2013 [facility] nitroglycerin 0.4 mg sublingual tablet 0.4 mg, 1 tab, Route: SL, Drug form: TAB, Q5Min, PRN Chest Pain, Start date: 10/18/13 1:21:00, Duration: 30 day, Stop date: 11/17/13 1:20:00(Same as:Nitroquick, Nitrostat) "Do Not Crush" Sublingual tablet Inactive [facility] 10/18/2013 [facility] atropine 0.5 mg, 5 mL, Route: IVP, Drug form: INJ, PRN, PRN Bradycardia, Start date: 10/18/13 1:21:00, Duration: 30 day, Stop date: 11/17/13 1:20:00 Inactive [facility] 10/18/2013 [facility] Saline Flush 0.9% 5 ml, Route: IVP, Drug Form: INJ, Dosing Weight 63.636, kg, PRN, PRN Line Flush, Start date: 10/18/13 0:45:00, Duration: 30 day, Stop date: 11/17/13 0:44:00(Same as: BD Posiflush) Inactive [facility] 10/18/2013 [facility] nitroglycerin SL Tab 0.4 mg, 1 tab, Route: SL, Drug form: TAB, Q5Min, Dosing Weight 63.636, kg, PRN Chest Pain, Start date: 10/18/13 0:45:00, Duration: 3 doses or times, Stop date: Limited # of times(Same as:Nitroquick, Nitrostat) "Do Not Crush" Sublingual tablet Inactive [facility] 10/18/2013 [facility] amLODIPine 5 mg, PO, Daily, 0 Refill(s) Active [facility] 10/18/2013 [facility] methimazole 10 mg, PO, Daily, 0 Refill(s) Active [facility] 10/18/2013 [facility] metFORMIN 500 mg, PO, Daily, 0 Refill(s) Active 10/18/2013 [facility] ALPRAZOLam 0.25 mg oral tablet, disintegrating =0.25 mg, PO, BID, 0 Refill(s) Active [facility] 10/18/2013 [facility] hydrochlorothiazide 25 mg, PO, Daily, 0 Refill(s) Active [facility] 10/18/2013 [facility] losartan 100 mg oral tablet 100 mg=1 tab, PO, Daily, # 30 tab, 0 Refill(s) Active 10/18/2013 [facility] aspirin 81 mg, PO, Daily, 0 Refill(s) Active 10/18/2013 [facility] Allergies, Adverse Reactions, Alerts Substance Category Reaction Severity Reaction type Status Date Reported Comments Source sulfa Assertion Drug allergy Active [facility] sulfa drugs<sup>1</sup> Assertion Drug allergy Active Data migrated from [employer] on 04/09/15. Originally documented as SULFA. [facility] Macrobid<sup>1</sup> Assertion Drug allergy Active body rash [facility] Immunizations Immunization Date Given Site Status Last Updated Comments Source influenza virus vaccine, inactivated<sup>1</sup> 06/12/2018 Left Deltoid completed [place] Result Comment: Patient waited in room ten mins no allergic reaction. [facility] influenza virus vaccine, inactivated<sup>1</sup> 06/22/2017 Left Deltoid completed [facility] Result Comment: PATIENT WAITED IN ROOM FOR TEN MINS, NO ALLERGIC REACTION. [facility] [place] influenza virus vaccine, inactivated<sup>2</sup> 06/22/2017 Left Deltoid completed [place] Result Comment: PATIENT WAITED IN ROOM FOR TEN MINS, NO ALLERGIC REACTION. [facility] influenza virus vaccine, inactivated 06/11/2016 completed [place] [facility] [place] influenza virus vaccine, inactivated 06/26/2015 Left Deltoid completed [place] [facility] [place] pneumococcal 23-valent vaccine<sup>4</sup> 10/15/2014 Left Deltoid completed [facility] Result Comment: pneumovax. Migrated from OBS ; Data migrated from [employer] on 10/14/2015. [facility] [place] pneumococcal 23-valent vaccine<sup>5</sup> 10/15/2014 Left Deltoid completed [facility] Result Comment: pneumovax. Migrated from OBS ; Data migrated from [employer] on 10/14/2015. [facility] influenza virus vaccine, inactivated<sup>2</sup> 05/26/2014 Left Deltoid completed [facility] Result Comment: fluzone high dose [[id number]]. Migrated from OBS ; Data migrated from [employer] on 10/13/2015. [facility] [place] influenza virus vaccine, inactivated<sup>3</sup> 05/26/2014 Left Deltoid completed [facility] Result Comment: fluzone high dose [[id number]]. Migrated from OBS ; Data migrated from [employer] on 10/13/2015. [facility] influenza virus vaccine, inactivated<sup>3</sup> 06/10/2013 Left Deltoid completed [facility] Result Comment: fluzone (>3 yrs.) [[id number]]. Migrated from OBS ; Data migrated from [employer] on 10/13/2015. [facility] [place] influenza virus vaccine, inactivated<sup>4</sup> 06/10/2013 Left Deltoid completed [facility] Result Comment: fluzone (>3 yrs.) [[id number]]. Migrated from OBS ; Data migrated from [employer] on 10/13/2015. [facility] Hx influenza vaccine-unspecified<sup>5</sup> 06/07/2012 completed [facility] Result Comment: historical. Migrated from OBS ; Data migrated from [employer] on 10/13/2015. [facility] [place] Hx influenza vaccine-unspecified<sup>1</sup> 06/07/2012 completed [facility] Result Comment: historical. Migrated from OBS ; Data migrated from [employer] on 10/13/2015. [facility] Hx influenza vaccine-unspecified<sup>6</sup> 06/07/2012 completed [facility] Result Comment: historical. Migrated from OBS ; Data migrated from [employer] on 10/13/2015. [facility] Results Order Name Results Value Reference Range Date Interpretation Comments Source CHEM PANEL Lipase Lvl 124 00 - 393 07/02/2015 [facility] CHEM PANEL eGFR 82 07/02/2015 Result Comment: The eGFR is calculated using the [...] from the National Kidney Disease Education Program (NKDEP) which additionally recommends that when the eGFR is used in patients with extremes of body mass index for purposes of drug dosing, the eGFR should be multiplied by the estimated BMI. [facility] CHEM PANEL Bili Total 0.7 0.2 - 1.3 07/02/2015 [facility] CHEM PANEL Alk Phos 77 39 - 136 07/02/2015 [facility] CHEM PANEL BUN 12 7 - 22 07/02/2015 [facility] CHEM PANEL Glucose Lvl 124 70 - 99 07/02/2015 [facility] CHEM PANEL Creatinine Lvl 0.7 0.5 - 1.4 07/02/2015 [facility] CHEM PANEL AST 24 0 - 37 07/02/2015 [facility] CHEM PANEL ALT 28 0 - 65 07/02/2015 [facility] CHEM PANEL CO2 29 24 - 32 07/02/2015 [facility] CHEM PANEL Albumin Lvl 3.7 3.5 - 5.0 07/02/2015 [facility] CHEM PANEL Total Protein 7.0 6.4 - 8.4 07/02/2015 [facility] CHEM PANEL Potassium Lvl 3.9 3.5 - 5.1 07/02/2015 [facility] CHEM PANEL Calcium Lvl 9.1 8.5 - 10.5 07/02/2015 [facility] CHEM PANEL Chloride Lvl 104 95 - 109 07/02/2015 [facility] CHEM PANEL Sodium Lvl 140 135 - 145 07/02/2015 [facility] CHEM PANEL AGAP 10.9 10.0 - 20.0 07/02/2015 [facility] CHEM PANEL B/C Ratio 17 6 - 25 07/02/2015 [facility] CHEM PANEL A/G Ratio 1.1 0.7 - 1.6 07/02/2015 [facility] CHEM PANEL Globulin 3.3 2.0 - 4.0 07/02/2015 [facility] HEMATOLOGY MPV 8.6 7.4 - 10.4 07/02/2015 [facility] HEMATOLOGY WBC 6.7 3.7 - 10.4 07/02/2015 [facility] HEMATOLOGY MCH 29.9 27.0 - 31.0 07/02/2015 [facility] HEMATOLOGY MCV 91.5 80.0 - 98.0 07/02/2015 [facility] HEMATOLOGY Hct 39.1 36.0 - 48.0 07/02/2015 [facility] HEMATOLOGY Hgb 12.8 12.0 - 16.0 07/02/2015 [facility] HEMATOLOGY RBC 4.27 4.20 - 5.40 07/02/2015 [facility] HEMATOLOGY Platelet 199 133 - 450 07/02/2015 [facility] HEMATOLOGY MCHC 32.6 32.0 - 36.0 07/02/2015 [facility] HEMATOLOGY RDW 13.8 11.5 - 14.5 07/02/2015 [facility] HEMATOLOGY Lymphocytes 16.0 20.0 - 40.0 07/02/2015 [facility] HEMATOLOGY Segs 76.0 45.0 - 75.0 07/02/2015 [facility] HEMATOLOGY Eosinophils 1.9 0.0 - 4.0 07/02/2015 [facility] HEMATOLOGY Monocytes 5.5 2.0 - 12.0 07/02/2015 [facility] HEMATOLOGY Segs-Bands # 5.1 1.5 - 8.1 07/02/2015 [facility] HEMATOLOGY Lymphocytes # 1.1 1.0 - 5.5 07/02/2015 [facility] HEMATOLOGY Basophils 0.6 0.0 - 1.0 07/02/2015 [facility] HEMATOLOGY Eosinophils # 0.1 0.0 - 0.5 07/02/2015 [facility] HEMATOLOGY Monocytes # 0.4 0.0 - 0.8 07/02/2015 [facility] CARDIAC ENZYMES Troponin-I <0.02 0.00 - 0.40 06/17/2015 [facility] CHEM PANEL Lipase Lvl 225 73 - 393 06/17/2015 [facility] CHEM PANEL B/C Ratio 18 6 - 25 06/17/2015 [facility] CHEM PANEL AGAP 10.0 10.0 - 20.0 06/17/2015 [facility] CHEM PANEL Globulin 3.5 2.0 - 4.0 06/17/2015 [facility] CHEM PANEL A/G Ratio 1.1 0.7 - 1.6 06/17/2015 [facility] CHEM PANEL eGFR 70 06/17/2015 Result Comment: The eGFR is calculated using the [...] from the National Kidney Disease Education Program (NKDEP) which additionally recommends that when the eGFR is used in patients with extremes of body mass index for purposes of drug dosing, the eGFR should be multiplied by the estimated BMI. [facility] CHEM PANEL Calcium Lvl 9.7 8.5 - 10.5 06/17/2015 [facility] CHEM PANEL Potassium Lvl 4.0 3.5 - 5.1 06/17/2015 [facility] CHEM PANEL Chloride Lvl 104 95 - 109 06/17/2015 [facility] CHEM PANEL Creatinine Lvl 0.8 0.5 - 1.4 06/17/2015 [facility] CHEM PANEL Sodium Lvl 140 135 - 145 06/17/2015 [facility] CHEM PANEL Albumin Lvl 3.9 3.5 - 5.0 06/17/2015 [facility] CHEM PANEL Total Protein 7.4 6.4 - 8.4 06/17/2015 [facility] CHEM PANEL AST 25 0 - 37 06/17/2015 [facility] CHEM PANEL Alk Phos 78 39 - 136 06/17/2015 [facility] CHEM PANEL ALT 30 0 - 65 06/17/2015 [facility] CHEM PANEL Bili Total 0.7 0.2 - 1.3 06/17/2015 [facility] CHEM PANEL Glucose Lvl 90 70 - 99 06/17/2015 [facility] CHEM PANEL CO2 30 24 - 32 06/17/2015 [facility] CHEM PANEL BUN 14 7 - 22 06/17/2015 [facility] HEMATOLOGY Eosinophils # 0.1 0.0 - 0.5 06/17/2015 [facility] HEMATOLOGY Monocytes # 0.5 0.0 - 0.8 06/17/2015 [facility] HEMATOLOGY Lymphocytes # 1.7 1.0 - 5.5 06/17/2015 [facility] HEMATOLOGY Segs-Bands # 4.0 1.5 - 8.1 06/17/2015 [facility] HEMATOLOGY Basophils 0.6 0.0 - 1.0 06/17/2015 [facility] HEMATOLOGY Eosinophils 2.3 0.0 - 4.0 06/17/2015 [facility] Monocytes 7.3 2.0 - 12.0 06/17/2015 [facility] Segs 62.5 45.0 - 75.0 06/17/2015 [facility] Lymphocytes 27.3 20.0 - 40.0 06/17/2015 [facility] MPV 9.4 7.4 - 10.4 06/17/2015 [facility] Platelet 196 133 - 450 06/17/2015 [facility] MCH 29.3 27.0 - 31.0 06/17/2015 [facility] MCHC 32.0 32.0 - 36.0 06/17/2015 [facility] RDW 13.7 11.5 - 14.5 06/17/2015 [facility] Hgb 13.4 12.0 - 16.0 06/17/2015 [facility] Hct 41.7 36.0 - 48.0 06/17/2015 [facility] MCV 91.5 80.0 - 98.0 06/17/2015 [facility] RBC 4.56 4.20 - 5.40 06/17/2015 [facility] WBC 6.3 3.7 - 10.4 06/17/2015 [facility] CHEM PANEL eGFR 82 06/12/2015 Result Comment: The eGFR is calculated using the [...] from the National Kidney Disease Education Program (NKDEP) which additionally recommends that when the eGFR is used in patients with extremes of body mass index for purposes of drug dosing, the eGFR should be multiplied by the estimated BMI. [facility] CHEM PANEL Bili Total 0.9 0.2 - 1.3 06/12/2015 [facility] CHEM PANEL Alk Phos 83 39 - 136 06/12/2015 [facility] CHEM PANEL AST 21 0 - 37 06/12/2015 [facility] CHEM PANEL ALT 25 0 - 65 06/12/2015 [facility] CHEM PANEL CO2 28 24 - 32 06/12/2015 [facility] CHEM PANEL Creatinine Lvl 0.7 0.5 - 1.4 06/12/2015 [facility] CHEM PANEL BUN 18 7 - 22 06/12/2015 [facility] CHEM PANEL Glucose Lvl 90 70 - 99 06/12/2015 [facility] CHEM PANEL Calcium Lvl 9.5 8.5 - 10.5 06/12/2015 [facility] CHEM PANEL Total Protein 7.6 6.4 - 8.4 06/12/2015 [facility] CHEM PANEL Albumin Lvl 4.1 3.5 - 5.0 06/12/2015 [facility] CHEM PANEL Sodium Lvl 139 135 - 145 06/12/2015 [facility] CHEM PANEL Potassium Lvl 3.7 3.5 - 5.1 06/12/2015 [facility] CHEM PANEL Chloride Lvl 104 95 - 109 06/12/2015 [facility] CHEM PANEL AGAP 10.7 10.0 - 20.0 06/12/2015 [facility] CHEM PANEL A/G Ratio 1.2 0.7 - 1.6 06/12/2015 [facility] CHEM PANEL Globulin 3.5 2.0 - 4.0 06/12/2015 [facility] CHEM PANEL B/C Ratio 26 6 - 25 06/12/2015 [facility] CHEM PANEL Lipase Lvl 129 73 - 393 06/12/2015 [facility] HEMATOLOGY Segs 76.4 45.0 - 75.0 06/12/2015 [facility] HEMATOLOGY Monocytes 5.9 2.0 - 12.0 06/12/2015 [facility] HEMATOLOGY Lymphocytes 15.9 20.0 - 40.0 06/12/2015 [facility] HEMATOLOGY Eosinophils 1.1 0.0 - 4.0 06/12/2015 [facility] HEMATOLOGY Basophils 0.7 0.0 - 1.0 06/12/2015 [facility] HEMATOLOGY Segs-Bands # 6.9 1.5 - 8.1 06/12/2015 [facility] HEMATOLOGY Lymphocytes # 1.4 1.0 - 5.5 06/12/2015 [facility] HEMATOLOGY Monocytes # 0.5 0.0 - 0.8 06/12/2015 [facility] HEMATOLOGY Eosinophils # 0.1 0.0 - 0.5 06/12/2015 [facility] HEMATOLOGY Basophils # 0.1 0.0 - 0.2 06/12/2015 [facility] RBC 4.45 4.20 - 5.40 06/12/2015 [facility] HEMATOLOGY WBC 9.1 3.7 - 10.4 06/12/2015 [facility] HEMATOLOGY Hgb 13.3 12.0 - 16.0 06/12/2015 [facility] Hct 40.5 36.0 - 48.0 06/12/2015 [facility] MCV 91.2 80.0 - 98.0 06/12/2015 [facility] MCHC 32.8 32.0 - 36.0 06/12/2015 [facility] MCH 29.9 27.0 - 31.0 06/12/2015 [facility] Platelet 193 133 - 450 06/12/2015 [facility] MPV 9.6 7.4 - 10.4 06/12/2015 [facility] RDW 14.2 11.5 - 14.5 06/12/2015 [facility] CHEM PANEL eGFR 61 11/08/2014 <sup>1</sup>Result Comment: The eGFR is calculated using the CKD-EPI formula. In most young, healthy individuals the eGFR will be >90 mL/min/1.73m2. The eGFR declines with age. An eGFR of 60-89 may be normal in some populations, particularly the elderly, for whom the CKD-EPI formula has not been extensively validated. Use of the eGFR is not recommended in the following populations:& lt;br/>
Individuals with unstable creatinine concentrations, including patients and those with serious co-morbid conditions.

Patients with extremes in muscle mass or diet.

The data above are obtained from the National Kidney Disease Education Program (NKDEP) which additionally recommends that when the eGFR is used in patients with extremes of body mass index for purposes of drug dosing, the eGFR should be multiplied by the estimated BMI. [facility] CHEM PANEL Calcium Lvl 8.6 8.5 - 10.5 11/08/2014 [facility] CHEM PANEL CO2 27 24 - 32 11/08/2014 [facility] CHEM PANEL AGAP 14.3 10.0 - 20.0 11/08/2014 [facility] CHEM PANEL BUN 19 7 - 22 11/08/2014 [facility] CHEM PANEL Creatinine Lvl 0.9 0.5 - 1.4 11/08/2014 [facility] CHEM PANEL Glucose Lvl 94 70 - 99 11/08/2014 <sup>3</sup>Interpretive Data: Adult reference range values reflect the clinical guidelines
of the [place] [employer]. [facility] CHEM PANEL Chloride Lvl 102 95 - 109 11/08/2014 [facility] CHEM PANEL Sodium Lvl 139 135 - 145 11/08/2014 [facility] CHEM PANEL Potassium Lvl 4.3 3.5 - 5.1 11/08/2014 [facility] CHEM PANEL Phosphorus 3.5 2.5 - 4.5 11/08/2014 [facility] CHEM PANEL Magnesium Lvl 2.1 1.8 - 2.4 11/08/2014 [facility] HEMATOLOGY Lymphocytes 26.7 20.0 - 40.0 11/08/2014 [facility] HEMATOLOGY Monocytes 8.7 2.0 - 12.0 11/08/2014 [facility] HEMATOLOGY Eosinophils 6.2 0.0 - 4.0 11/08/2014 [facility] HEMATOLOGY Segs 57.3 45.0 - 75.0 11/08/2014 [facility] HEMATOLOGY Basophils # 0.1 0.0 - 0.2 11/08/2014 [facility] HEMATOLOGY Monocytes # 0.6 0.0 - 0.8 11/08/2014 [facility] HEMATOLOGY Eosinophils # 0.4 0.0 - 0.5 11/08/2014 [facility] HEMATOLOGY Segs-Bands # 3.7 1.5 - 8.1 11/08/2014 [facility] HEMATOLOGY Lymphocytes # 1.7 1.0 - 5.5 11/08/2014 [facility] HEMATOLOGY Basophils 1.1 0.0 - 1.0 11/08/2014 [facility] HEMATOLOGY Platelet 283 133 - 450 11/08/2014 [facility] HEMATOLOGY MPV 8.2 7.4 - 10.4 11/08/2014 [facility] HEMATOLOGY Hct 35.3 36.0 - 48.0 11/08/2014 [facility] HEMATOLOGY MCV 91.6 80.0 - 98.0 11/08/2014 [facility] HEMATOLOGY RDW 13.4 11.5 - 14.5 11/08/2014 [facility] HEMATOLOGY MCH 31.2 27.0 - 31.0 11/08/2014 [facility] MCHC 34.0 32.0 - 36.0 11/08/2014 [facility] HEMATOLOGY RBC 3.85 4.20 - 5.40 11/08/2014 [facility] HEMATOLOGY Hgb 12.0 12.0 - 16.0 11/08/2014 [facility] HEMATOLOGY WBC 6.4 3.7 - 10.4 11/08/2014 [facility] ELECTROLYTES AGAP 12.7 10.0 - 20.0 11/07/2014 [facility] ELECTROLYTES A/G Ratio 1.0 0.7 - 1.6 11/07/2014 [facility] ELECTROLYTES Globulin 4.0 2.0 - 4.0 11/07/2014 [facility] ELECTROLYTES B/C Ratio 18 6 - 25 11/07/2014 [facility] ELECTROLYTES Chloride Lvl 99 95 - 109 11/07/2014 [facility] ELECTROLYTES Sodium Lvl 136 135 - 145 11/07/2014 [facility] ELECTROLYTES Potassium Lvl 3.7 3.5 - 5.1 11/07/2014 [facility] ELECTROLYTES Bili Total 0.6 0.2 - 1.3 11/07/2014 [facility] ELECTROLYTES Alk Phos 100 39 - 136 11/07/2014 [facility] ELECTROLYTES AST 23 0 - 37 11/07/2014 [facility] ELECTROLYTES ALT 21 0 - 65 11/07/2014 [facility] ELECTROLYTES Albumin Lvl 4.2 3.5 - 5.0 11/07/2014 [facility] Total Protein 8.2 6.4 - 8.4 11/07/2014 [facility] ELECTROLYTES CO2 28 24 - 32 11/07/2014 [facility] ELECTROLYTES BUN 16 7 - 22 11/07/2014 [facility] ELECTROLYTES Glucose Lvl 185 70 - 99 11/07/2014 <sup>4</sup>Interpretive Data: Adult reference range values reflect the clinical guidelines
of the [place] [employer]. [facility] ELECTROLYTES eGFR 61 11/07/2014 <sup>2</sup>Result Comment: The eGFR is calculated using the CKD-EPI formula. In most young, healthy individuals the eGFR will be >90 mL/min/1.73m2. The eGFR declines with age. An eGFR of 60-89 may be normal in some populations, particularly the elderly, for whom the CKD-EPI formula has not been extensively validated. Use of the eGFR is not recommended in the following populations:& lt;br/>
Individuals with unstable creatinine concentrations, including patients and those with serious co-morbid conditions.

Patients with extremes in muscle mass or diet.

The data above are obtained from the National Kidney Disease Education Program (NKDEP) which additionally recommends that when the eGFR is used in patients with extremes of body mass index for purposes of drug dosing, the eGFR should be multiplied by the estimated BMI. [facility] ELECTROLYTES Creatinine Lvl 0.9 0.5 - 1.4 11/07/2014 [facility] ELECTROLYTES Calcium Lvl 9.1 8.5 - 10.5 11/07/2014 [facility] Lymphocytes # 1.7 1.0 - 5.5 11/07/2014 [facility] Monocytes # 0.4 0.0 - 0.8 11/07/2014 [facility] HEMATOLOGY Eosinophils # 0.4 0.0 - 0.5 11/07/2014 [facility] Segs-Bands # 4.6 1.5 - 8.1 11/07/2014 [facility] Basophils 0.7 0.0 - 1.0 11/07/2014 [facility] Monocytes 5.4 2.0 - 12.0 11/07/2014 [facility] Eosinophils 5.4 0.0 - 4.0 11/07/2014 [facility] Segs 64.2 45.0 - 75.0 11/07/2014 [facility] Lymphocytes 24.3 20.0 - 40.0 11/07/2014 [facility] PTT 29.9 22.9 - 35.8 11/07/2014 <sup>6</sup>Interpretive Data: Heparin Therapeutic Range: 57 - 92 Seconds [facility] PT 12.7 12.0 - 14.7 11/07/2014 [facility] INR 0.95 0.85 - 1.17 11/07/2014 <sup>5</sup>Interpretive Data: RECOMMENDED RANGES FOR PROTIME INR:
2.0-3.0 for most medical and surgical thromboembolic states.
2.5-3.5 for artificial heart valves and recurrent embolism.

INR SHOULD BE USED ONLY FOR PATIENTS ON STABLE ANTICOAGULANT THERAPY. [facility] MCHC 33.7 32.0 - 36.0 11/07/2014 [facility] RDW 13.6 11.5 - 14.5 11/07/2014 [facility] Platelet 326 133 - 450 11/07/2014 [facility] MPV 7.9 7.4 - 10.4 11/07/2014 [facility] Hct 43.1 36.0 - 48.0 11/07/2014 [facility] HEMATOLOGY MCV 91.7 80.0 - 98.0 11/07/2014 [facility] HEMATOLOGY MCH 30.9 27.0 - 31.0 11/07/2014 [facility] HEMATOLOGY WBC 7.2 3.7 - 10.4 11/07/2014 [facility] HEMATOLOGY RBC 4.70 4.20 - 5.40 11/07/2014 [facility] HEMATOLOGY Hgb 14.5 12.0 - 16.0 11/07/2014 [facility] URINE AND STOOL UA Urobilinogen <=1.0 mg/dL 0.1 - 1.0 11/07/2014 [facility] URINE AND STOOL UA Color Ltyellow 11/07/2014 [facility] URINE AND STOOL UA Bacteria Occasional /HPF None Seen /HPF 11/07/2014 [facility] URINE AND STOOL UA RBC 1 0 - 2 11/07/2014 [facility] URINE AND STOOL UA WBC <1 0 - 5 11/07/2014 [facility] URINE AND STOOL UA Sq Epi Occasional /LPF Few /LPF 11/07/2014 [facility] URINE AND STOOL UA Leuk Est Negative (11/07/14 8:57 AM) Negative 11/07/2014 [facility] URINE AND STOOL UA Nitrite Negative (11/07/14 8:57 AM) Negative 11/07/2014 [facility] URINE AND STOOL UA Blood Small *ABN* (11/07/14 8:57 AM) Negative 11/07/2014 [facility] URINE AND STOOL UA Bili Negative *NA* (11/07/14 8:57 AM) Negative 11/07/2014 [facility] URINE AND STOOL UA Ketones Negative mg/dL Negative mg/dL 11/07/2014 [facility] URINE AND STOOL UA Glucose Negative mg/dL Negative mg/dL 11/07/2014 [facility] URINE AND STOOL UA Protein Negative mg/dL Negative mg/dL 11/07/2014 [facility] URINE AND STOOL UA Turbidity Clear (11/07/14 8:57 AM) Clear 11/07/2014 [facility] URINE AND STOOL UA pH 7.0 5.0 - 8.0 11/07/2014 [facility] URINE AND STOOL UA Spec Grav 1.009 <=1.030 11/07/2014 [facility] CHEMISTRY CK-MB INDEX 1.8 0.0 - 2.5 10/18/2013 Normal [facility] CHEMISTRY CK MB 10.0 0.5 - 3.6 10/18/2013 [facility] CHEMISTRY Chol 150 <=199 10/18/2013 Normal [facility] CHEMISTRY Trig 91 <=149 10/18/2013 Normal [facility] CHEMISTRY LDL (Calculated) 76 <=99 10/18/2013 Normal [facility] CHEMISTRY HDL 56 >=61 10/18/2013 LOW [facility] CHEMISTRY CHD Risk 2.68 3.90 - 5.80 10/18/2013 LOW [facility] Troponin-I 0.02 0.00 - 0.40 10/18/2013 Normal [facility] Total CK 543 12 - 191 10/18/2013 HI [facility] HEMATOLOGY aPTT 30.2 22.9 - 35.8 10/18/2013 Normal <sup>7</sup>Interpretive Data: Heparin Therapeutic Range: 57 - 92 Seconds [facility] BEDSIDE GLUCOSE TESTING Gluc POC Comment 1 Notified RN/MD 10/18/2013 [facility] BEDSIDE GLUCOSE TESTING Glucose POC 92 70 - 99 10/18/2013 Normal <sup>1</sup>Interpretive Data: Upper Reportable Limit: 200 mg/dL. [facility] CHEMISTRY CK MB 13.9 0.5 - 3.6 10/18/2013 HI [facility] CHEMISTRY CK-MB INDEX 2.3 0.0 - 2.5 10/18/2013 Normal [facility] Troponin-I 0.04 0.00 - 0.40 10/18/2013 Normal [facility] Total CK 600 12 - 191 10/18/2013 [facility] <sup>5</sup>Result Comment: Critical Result(s) called to Florentino Mercado at _10/18/2013 03:07 by_bgq. Read back OK. [facility] BEDSIDE GLUCOSE TESTING Glucose POC 140 70 - 99 10/18/2013 [facility] <sup>2</sup>Interpretive Data: Upper Reportable Limit: 200 mg/dL. [facility] CHEMISTRY Troponin-I 0.02 0.00 - 0.40 10/18/2013 Normal [facility] CHEMISTRY Magnesium Lvl 2.0 1.8 - 2.4 10/18/2013 Normal [facility] CHEMISTRY Total CK 132 12 - 191 10/18/2013 Normal [facility] CHEMISTRY CK MB 2.7 0.5 - 3.6 10/18/2013 Normal [facility] CHEMISTRY eGFR 83 10/18/2013 <sup>3</sup>Result Comment: The eGFR is calculated using the CKD-EPI formula. In most young, healthy individuals the eGFR will be >90 mL/min/1.73m2. The eGFR declines with age. An eGFR of 60-89 may be normal in some populations, particularly the elderly, for whom the CKD-EPI formula has not been extensively validated. Use of the eGFR is not recommended in the following populations:& lt;br/>
Individuals with unstable creatinine concentrations, including patients and those with serious co-morbid conditions.

Patients with extremes in muscle mass or diet.

The data above are obtained from the National Kidney Disease Education Program (NKDEP) which additionally recommends that when the eGFR is used in patients with extremes of body mass index for purposes of drug dosing, the eGFR should be multiplied by the estimated BMI. [facility] CHEMISTRY Glucose Lvl 130 70 - 99 10/18/2013 [facility] <sup>4</sup>Interpretive Data: Adult reference range values reflect the clinical guidelines
of the [place] [employer]. [facility] CHEMISTRY BUN 27 7 - 22 10/18/2013 HI [facility] CHEMISTRY Creatinine Lvl 0.7 0.5 - 1.4 10/18/2013 Normal [facility] CHEMISTRY Sodium Lvl 136 135 - 145 10/18/2013 Normal [facility] CHEMISTRY Potassium Lvl 3.9 3.5 - 5.1 10/18/2013 Normal [facility] CHEMISTRY Chloride Lvl 100 95 - 109 10/18/2013 Normal [facility] CHEMISTRY CO2 24 24 - 32 10/18/2013 Normal [facility] CHEMISTRY Calcium Lvl 8.7 8.5 - 10.5 10/18/2013 Normal [facility] CHEMISTRY AGAP 15.9 10.0 - 20.0 10/18/2013 Normal [facility] CHEMISTRY CK-MB INDEX 2.0 0.0 - 2.5 10/18/2013 Normal [facility] HEMATOLOGY aPTT 29.9 22.9 - 35.8 10/18/2013 Normal <sup>8</sup>Interpretive Data: Heparin Therapeutic Range: 57 - 92 Seconds [facility] HEMATOLOGY PROTIME 12.2 12.0 - 14.7 10/18/2013 Normal [facility] HEMATOLOGY INR 0.91 0.85 - 1.17 10/18/2013 Normal <sup>6</sup>Interpretive Data: RECOMMENDED RANGES FOR PROTIME INR:
2.0-3.0 for most medical and surgical thromboembolic states.
2.5-3.5 for artificial heart valves and recurrent embolism.

INR SHOULD BE USED ONLY FOR PATIENTS ON STABLE ANTICOAGULANT THERAPY. [facility] HEMATOLOGY MPV 7.4 7.4 - 10.4 10/18/2013 Normal [facility] HEMATOLOGY RDW 13.8 11.5 - 14.5 10/18/2013 Normal [facility] HEMATOLOGY Platelet 305 133 - 450 10/18/2013 Normal [facility] HEMATOLOGY MCHC 33.9 32.0 - 36.0 10/18/2013 Normal [facility] HEMATOLOGY WBC X 10x3 9.1 3.7 - 10.4 10/18/2013 Normal [facility] HEMATOLOGY RBC X 10x6 4.01 4.20 - 5.40 10/18/2013 LOW [facility] HEMATOLOGY MCV 91.2 81.0 - 99.0 10/18/2013 Normal [facility] HEMATOLOGY MCH 31.0 27.0 - 31.0 10/18/2013 Normal [facility] Hgb 12.4 12.0 - 16.0 10/18/2013 Normal [facility] HEMATOLOGY Hct 36.6 36.0 - 48.0 10/18/2013 Normal [facility] HEMATOLOGY Monocytes # 0.4 0.0 - 0.8 10/18/2013 Normal [facility] HEMATOLOGY Eosinophils # 0.2 0.0 - 0.5 10/18/2013 Normal [facility] HEMATOLOGY Basophils 0.4 0.0 - 1.0 10/18/2013 Normal [facility] HEMATOLOGY Basophils # 0.0 0.0 - 0.2 10/18/2013 Normal [facility] HEMATOLOGY Lymphocytes 12.7 20.0 - 40.0 10/18/2013 LOW [facility] HEMATOLOGY Segs-Bands # 7.3 1.5 - 8.1 10/18/2013 Normal [facility] HEMATOLOGY Lymphocytes # 1.2 1.0 - 5.5 10/18/2013 Normal [facility] HEMATOLOGY Monocytes 4.5 2.0 - 12.0 10/18/2013 Normal [facility] HEMATOLOGY Eosinophils 2.4 0.0 - 4.0 10/18/2013 Normal [facility] HEMATOLOGY Segs 80.0 45.0 - 75.0 10/18/2013 [facility] Pathology Reports No Data Provided for This Section Diagnostic Reports Report Value Date Source Esophagus BA swallow function video DX Patient Name: CARLIE AMEZQUITA : 1935; Age: 84 years Female MR: [id number] Study: Esophagus BA swallow function video DX Order Time: 04/22/2019 9:47 CDT Clinical Indication: 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 COMPARISON: None. REFERENCE AIR KERMA: 7.33 mGy Fluoroscopy time: 2.6 minutes TECHNIQUE: Fluoroscopic assistance was provided for the speech pathologist for modified barium swallow examination. Varying consistencies of barium were administered po. FINDINGS: Thin consistency barium: Delayed oral phase of swallowing. Penetration aspiration scale 2. [place] consistency barium: Delayed oral phase of swallowing. Penetration aspiration scale 2. Pudding coated barium: Piecemeal swallowing with residual in the vallecula. Barium with cracker preparation: Delay in the oral phase of swallowing with residual in the vallecula. SL: [id number] 04/22/2019 [facility] Bone Density Scan Study: Bone Density Scan Clinical Indication: Osteoporosis screening; Images of the left forearm and left hip have been performed using [employer] Discovery SL scanner. COMPARISON: 04/18/2017 FINDINGS: The left hip bone mineral density is 69% of the peak reference bone mass with a T-score of -2.2. Left hip BMD is 0.668 g/cm2. Left femoral neck BMD is 0.616 g/cm2 and T-score of -2.2. Left hip BMD has increased 8.1% since previous exam. The left forearm bone mineral density is 80% of the peak reference bone mass with a T-score of -2.1. Left forearm average BMD is 0.463 g/cm2. 10 year fracture risk without prior fracture with prior fracture Major osteoporotic fracture 8.3% 12% Hip fracture 2.7% 3.6% IMPRESSION: 1. Osteopenia of the left femoral neck. 2. Osteopenia of the total left hip. 3. Osteopenia of the left forearm. The World Health Organization has established that OSTEOPOROSIS occurs at -2.5 or more standard deviations (SD) below peak bone mass (T-score on the Hologic report). OSTEOPENIA (low bone mass) occurs at greater than -1.0 standard deviations to -2.5 standard deviations below peak bone mass. SL: [id number] 04/22/2019 [facility] Chest 2 views DX Clinical Indication: - J40 Bronchitis, not specified as acute or chronic Comparison: 06/17/2015 FINDINGS: PA and lateral views the chest are submitted for interpretation. Parenchymal airspace disease in the left lung base may represent subsegmental atelectasis or pneumonia. The lungs are otherwise clear and there are no effusions. There is no visible pneumothorax. The cardiomediastinal contours are stable. There are atherosclerotic calcifications in the aortic arch. There are no clinically significant osseous abnormalities noted. IMPRESSION: 1. Left lower lobe subsegmental atelectasis versus pneumonia. SL: [id number] 01/11/2018 [facility] Bone Density Scan Patient Name: CARLIE AMEZQUITA : 1935; Age: 82 years y/o Female MR: [id number] Study: Bone Density Scan 04/18/2017 9:33 AM CDT Clinical Indication: M81.0 Age-related osteoporosis without current pathological fracture - M81.0 Age-related osteoporosis without current pathological fracture. COMPARISON: 11/26/2014 FINDINGS: The axial lumbar bone mineral density is 81% of the expected age matched bone mass with a T-score -0.8. Axial lumbar average BMD is 0.96 g/cm2. This is decreased 10.2% from the prior exam. The left femoral neck bone mineral density is 64% of the expected age matched bone mass with a T-score of -2.6. Left femoral neck BMD is 0.56 g/cm2. The total femoral BMD is 0.62 g/cm2. IMPRESSION: 1. Normal bone mineral density of the lumbar spine. 2. Osteoporosis of the left femoral neck. The World Health Organization has established that OSTEOPOROSIS occurs at -2.5 or more standard deviations (SD) below peak bone mass. OSTEOPENIA (low bone mass) occurs at -1.0 standard deviations to -2.5 standard deviations below peak bone mass. SL: [id number] 04/18/2017 [facility] Esophagus BA swallow function video DX Modified Barium Swallow: CLINICAL HX: Dysphagia, feeding difficulties, old CVA Fluoroscopic assistance was provided for the speech pathologist for the modified barium swallow examination. FINDINGS: Mild laryngeal penetration with thin consistency barium. This was eliminated by chin tuck maneuver. No aspiration or any significant penetration with nectar consistency barium. Oral delay in passage of pudding consistency barium and barium with cracker preparation. There is no evidence for laryngeal penetration or tracheal aspiration on these latter 2 maneuvers. Please, see report by the speech pathologist for additional details. Fluoroscopy Time: 2.1 minutes SL:13 06/30/2015 [facility] Chest 1view DX Chest one view: COMPARISON: 10/17/2013 FINDINGS: Limited AP portable study. Mild pulmonary hyperinflation. Mild generalized prominence of the interstitium with asymmetric increase in linear interstitial opacities at right lung base. Findings suggestive of underlying bronchiectasis. No consolidation or effusion. Cardiac silhouette size is within normal limits. Moderate tortuosity of thoracic aorta. No significant bony abnormality is evident. Prominent skin fold projects over right hemithorax. Various EKG leads and wires project over the patient's chest. There are surgical clips in the right upper quadrant consistent with a prior cholecystectomy. IMPRESSION: COPD, unchanged from previous study. Probable bronchiectasis, right lung base. SL:13 06/17/2015 [facility] Abdomen AP DX EXAM: abdomen HISTORY: Acute abdominal pain, vomiting. COMPARISON: 05/12/2010. TECHNIQUE: Supine view of the abdomen FINDINGS: The patient is rotated. The patient's hand obscures the right upper abdomen. Nonspecific bowel pattern. No dilated bowel loops are seen. Cholecystectomy clips. Calcification aorta. SL: 14 06/12/2015 [facility] Bone Density Scan BONE DENSITY: TECHNIQUE: Dual energy x-ray absorptiometry (DEXA) was done over the lumbar spine and left hip. FINDINGS: The total T-score over the lumbar spine is 0.2, consistent with normal bone density. The global T-score over the left hip is -2.1, consistent with osteopenia. The focal T-score over the left femoral neck is -2.2, consistent with osteopenia. IMPRESSION: 1. Normal bone density of the lumbar spine. 2. Global osteopenia of the left hip. 3. Focal osteopenia of the left femoral neck. FOR YOUR INFORMATION: The World Health Organization has established that OSTEOPOROSIS occurs at -2.5 or more standard deviations below peak bone mass (T-score). OSTEOPENIA occurs at -1.0 to -2.5 standard deviations (T-score) below peak bone mass. SL:13 11/26/2014 [facility] Brain wo contrast MRI MRI of the head without contrast: Exam reason: Weakness R/O new CVA in pt with new-onset dysphagia Multiple coronal and axial FLAIR as well as sagittal T1and axial T2, GRE and diffusion weighted images were obtained. Punctate foci of hypointensity are noted on the gradient echo image at the basal ganglia bilaterally which could represent amyloid angiopathy. Age-appropriate cortical and cerebellar volume loss with compensatory enlargement of the ventricles and subarachnoid spaces is noted. Empty sella is noted. Mild punctate and focal chronic microangiopathic changes of the periventricular and subcortical white matter are noted. A small focus of encephalomalacia corresponding to chronic ischemic focus at the periventricular white matter adjacent to the dorsal aspect of the body of the left lateral ventricle exten ding to the dorsal aspect of the basal ganglia is noted. There is no acute cortical infarction, mass lesion or hemorrhage noted. There is no mass-effect or midline shift demonstrated. The ventricles are otherwise normal in size, shape and position. Minimal mucosal thickening or secretions are noted at the dorsal aspect of the maxillary sinuses bilaterally. IMPRESSION: 1. No acute intracranial abnormality is noted. 2. Senescent and chronic ischemic changes are noted intracranially. 3. Possible amyloid angiopathy at the basal ganglia bilaterally. 4. Chronic maxillary sinusitis. SL:13 11/07/2014 [facility] Consultation Notes No Data Provided for This Section Discharge Summaries No Data Provided for This Section History and Physicals No Data Provided for This Section Vital Signs Vital Sign Value Date Comments Source BMI Calculated 17.93 04/16/[facility] Weight 45.909 04/16/[facility] Height 160.02 cm 04/16/2019 [facility] Heart Rate 66 04/16/2019 [facility] Respitory Rate 14 04/16/2019 [facility] Systolic (mm Hg) 116 04/16/2019 [facility] Diastolic (mm Hg) 57 04/16/2019 [facility] Height 160.02 cm 03/21/2019 [facility] BMI Calculated 18.46 03/21/2019 [facility] Weight 47.273 03/21/2019 [facility] Temperature Oral (F) 96.7 F 03/21/2019 [facility] Respitory Rate 16 03/21/2019 [facility] Systolic (mm Hg) 124 03/21/2019 [facility] Diastolic (mm Hg) 62 03/21/2019 [facility] Heart Rate 64 03/21/2019 [facility] Height 160.02 cm 02/26/2019 [facility] Temperature Oral (F) 97.9 F 02/26/2019 [facility] Weight 47.273 02/26/2019 [facility] BMI Calculated 18.46 02/26/2019 [facility] Systolic (mm Hg) 114 02/26/2019 [facility] Diastolic (mm Hg) 61 02/26/2019 [facility] Respitory Rate 16 02/26/2019 [facility] Heart Rate 59 02/26/2019 [facility] BMI Calculated 18.46 01/24/2019 [facility] Weight 47.273 01/24/2019 [facility] Height 160.02 cm 01/24/2019 [facility] Respitory Rate 14 01/24/2019 [facility] Heart Rate 60 01/24/2019 [facility] Temperature Oral (F) 97.7 F 01/24/2019 [facility] Systolic (mm Hg) 110 01/24/2019 [facility] Diastolic (mm Hg) 59 01/24/2019 [facility] Weight 47.273 01/03/2019 [facility] BMI Calculated 18.46 01/03/2019 [facility] Height 160.02 cm 01/03/2019 [facility] Height 160.02 cm 12/18/2018 [facility] BMI Calculated 17.93 12/18/2018 [facility] Weight 45.909 12/18/2018 [facility] Systolic (mm Hg) 113 12/18/2018 [facility] Diastolic (mm Hg) 63 12/18/2018 [facility] Temperature Oral (F) 97.4 F 12/18/2018 [facility] Respitory Rate 16 12/18/2018 [facility] Heart Rate 64 12/18/2018 [facility] Weight 46.818 10/15/2018 [facility] Height 160.02 cm 10/15/2018 [facility] Heart Rate 67 10/15/2018 [facility] Temperature Oral (F) 96.8 F 10/15/2018 [facility] Respitory Rate 16 10/15/2018 [facility] Systolic (mm Hg) 124 10/15/2018 [facility] Diastolic (mm Hg) 65 10/15/2018 [facility] BMI Calculated 18.28 10/15/2018 [facility] Weight 44.545 06/12/2018 [facility] Heart Rate 65 06/12/2018 [facility] Respitory Rate 16 06/12/2018 [facility] Temperature Oral (F) 97.9 F 06/12/2018 [facility] Systolic (mm Hg) 128 06/12/2018 [facility] Diastolic (mm Hg) 60 06/12/2018 [facility] Height 157.48 cm 06/12/2018 [facility] BMI Calculated 17.96 06/12/2018 [facility] Weight 44.091 04/04/2018 [facility] BMI Calculated 17.22 04/04/2018 [facility] Temperature Oral (F) 96.9 F 04/04/2018 [facility] Height 160.02 cm 04/04/2018 [facility] Respitory Rate 16 04/04/2018 [facility] Heart Rate 65 04/04/2018 [facility] Systolic (mm Hg) 118 04/04/2018 [facility] Diastolic (mm Hg) 59 04/04/2018 [facility] Weight 42.727 02/23/2018 [facility] Height 167.64 cm 02/23/2018 [facility] BMI Calculated 15.2 02/23/2018 [facility] Systolic (mm Hg) 120 02/23/2018 [facility] Diastolic (mm Hg) 58 02/23/2018 [facility] Temperature Oral (F) 96.9 F 02/23/2018 [facility] Respitory Rate 16 02/23/2018 [facility] Heart Rate 78 02/23/2018 [facility] Weight 44.545 01/16/2018 [facility] Height 157.48 cm 01/16/2018 [facility] BMI Calculated 17.96 01/16/2018 [facility] Temperature Oral (F) 97.0 F 01/16/2018 [facility] Heart Rate 91 01/16/2018 [facility] Respitory Rate 16 01/16/2018 [facility] Systolic (mm Hg) 124 01/16/2018 [facility] Diastolic (mm Hg) 60 01/16/2018 [facility] BMI Calculated 17.04 01/11/2018 [facility] Systolic (mm Hg) 113 01/11/2018 [facility] Diastolic (mm Hg) 55 01/11/2018 [facility] Heart Rate 81 01/11/2018 [facility] Height 160.02 cm 01/11/2018 [facility] Weight 43.636 01/11/2018 [facility] Respitory Rate 16 01/11/2018 [facility] Temperature Oral (F) 97.1 F 01/11/2018 [facility] BMI Calculated 20.45 01/01/2018 [facility] Weight 49.091 01/01/2018 [facility] Height 154.94 cm 01/01/2018 [facility] Temperature Oral (F) 97.7 F 01/01/2018 [facility] Systolic (mm Hg) 150 01/01/2018 [facility] Diastolic (mm Hg) 63 01/01/2018 [facility] Heart Rate 75 01/01/2018 [facility] Respitory Rate 16 01/01/2018 [facility] Heart Rate 74 12/11/2017 [facility] Respitory Rate 14 12/11/2017 [facility] Height 154.94 cm 12/11/2017 [facility] Weight 49.091 12/11/2017 [facility] Temperature Oral (F) 98.3 F 12/11/2017 [facility] BMI Calculated 20.45 12/11/2017 [facility] Systolic (mm Hg) 163 12/11/2017 [facility] Diastolic (mm Hg) 67 12/11/2017 [facility] BMI Calculated 19.79 12/05/2017 [facility] Weight 49.091 12/05/2017 [facility] Height 157.48 cm 12/05/2017 [facility] Respitory Rate 16 12/05/2017 [facility] Heart Rate 68 12/05/2017 [facility] Systolic (mm Hg) 121 12/05/2017 [facility] Diastolic (mm Hg) 58 12/05/2017 [facility] Temperature Oral (F) 96.5 F 12/05/2017 [facility] Weight 78.182 08/14/2017 [facility] Height 157.48 cm 08/14/2017 [facility] BMI Calculated 31.53 08/14/2017 [facility] Systolic (mm Hg) 103 08/14/2017 [facility] Diastolic (mm Hg) 60 08/14/2017 [facility] Respitory Rate 14 08/14/2017 [facility] Temperature Oral (F) 98.2 F 08/14/2017 [facility] Heart Rate 81 08/14/2017 [facility] Respitory Rate 16 07/02/2015 [facility] Systolic (mm Hg) 160 07/02/2015 [facility] Diastolic (mm Hg) 71 07/02/2015 [facility] Temperature Oral (F) 97.8 F 07/02/2015 [facility] Heart Rate 69 07/02/2015 [facility] Systolic (mm Hg) 126 07/02/2015 [facility] Diastolic (mm Hg) 66 07/02/2015 [facility] Heart Rate 66 07/02/2015 [facility] Respitory Rate 18 07/02/2015 [facility] Temperature Oral (F) 98.3 F 07/02/2015 [facility] Height 157.48 cm 07/02/2015 [facility] Weight 44.545 07/02/2015 [facility] BMI Calculated 17.96 07/02/2015 [facility] Temperature Oral (F) 98.0 F 06/17/2015 [facility] Heart Rate 70 06/17/2015 [facility] Systolic (mm Hg) 133 06/17/2015 [facility] Diastolic (mm Hg) 75 06/17/2015 [facility] Respitory Rate 16 06/17/2015 [facility] Heart Rate 74 06/17/2015 [facility] Respitory Rate 16 06/17/2015 [facility] Systolic (mm Hg) 138 06/17/2015 [facility] Diastolic (mm Hg) 68 06/17/2015 [facility] Height 167.64 cm 06/17/2015 [facility] BMI Calculated 16.17 06/17/2015 [facility] Weight 45.455 06/17/2015 [facility] Temperature Oral (F) 98.1 F 06/17/2015 [facility] Heart Rate 71 06/17/2015 [facility] Systolic (mm Hg) 143 06/17/2015 [facility] Diastolic (mm Hg) 81 06/17/2015 [facility] Respitory Rate 16 06/17/2015 [facility] Temperature Oral (F) 98.6 F 06/13/2015 [facility] Systolic (mm Hg) 132 06/13/2015 [facility] Diastolic (mm Hg) 74 06/13/2015 [facility] Respitory Rate 14 06/13/2015 [facility] Heart Rate 78 06/13/2015 [facility] Weight 47.727 06/13/2015 [facility] Height 157.48 cm 06/13/2015 [facility] BMI Calculated 19.24 06/13/2015 [facility] Temperature Oral (F) 98.3 F 06/13/2015 [facility] Heart Rate 72 06/13/2015 [facility] Respitory Rate 16 06/13/2015 [facility] Systolic (mm Hg) 147 06/13/2015 [facility] Diastolic (mm Hg) 68 06/13/2015 [facility] Systolic (mm Hg) 161 06/12/2015 [facility] Diastolic (mm Hg) 74 06/12/2015 [facility] Heart Rate 87 06/12/2015 [facility] Respitory Rate 18 06/12/2015 [facility] BMI Calculated 18.33 06/12/2015 [facility] Temperature Oral (F) 98.0 F 06/12/2015 [facility] Respitory Rate 18 06/12/2015 [facility] Weight 45.455 06/12/2015 [facility] Height 157.48 cm 06/12/2015 [facility] Systolic (mm Hg) 150 06/12/2015 [facility] Diastolic (mm Hg) 73 06/12/2015 [facility] Heart Rate 91 06/12/2015 [facility] Respitory Rate 16 05/14/2015 [facility] Systolic (mm Hg) 142 05/14/2015 [facility] Diastolic (mm Hg) 70 05/14/2015 [facility] Heart Rate 66 05/14/2015 [facility] BMI Calculated 34.7 05/13/2015 [facility] Weight 72.727 05/13/2015 [facility] Height 144.78 cm 05/13/2015 [facility] Systolic (mm Hg) 166 11/08/2014 [facility] Diastolic (mm Hg) 75 11/08/2014 [facility] Respitory Rate 17 11/08/2014 [facility] Systolic (mm Hg) 154 11/08/2014 [facility] Diastolic (mm Hg) 76 11/08/2014 [facility] Respitory Rate 15 11/08/2014 [facility] Systolic (mm Hg) 135 11/08/2014 [facility] Diastolic (mm Hg) 84 11/08/2014 [facility] Respitory Rate 14 11/08/2014 [facility] Heart Rate 76 11/08/2014 [facility] Temperature Oral (F) 97.9 F 11/08/2014 [facility] Temperature Oral (F) 97.7 F 11/08/2014 [facility] Heart Rate 65 11/08/2014 [facility] Heart Rate 62 11/08/2014 [facility] Temperature Oral (F) 97.9 F 11/08/2014 [facility] Weight 58.455 11/07/2014 [facility] BMI Calculated 23.57 11/07/2014 [facility] Height 157.48 cm 11/07/2014 [facility] Weight 62.727 11/07/2014 [facility] BMI Calculated 25.29 11/07/2014 [facility] Height 157.48 cm 11/07/2014 [facility] Heart Rate 62 10/18/2013 [facility] Temperature Oral (F) 97.9 F 10/18/2013 [facility] Systolic (mm Hg) 122 10/18/2013 [facility] Respitory Rate 18 10/18/2013 [facility] Diastolic (mm Hg) 64 10/18/2013 [facility] Systolic (mm Hg) 115 10/18/2013 [facility] Diastolic (mm Hg) 57 10/18/2013 [facility] Temperature Oral (F) 97.5 F 10/18/2013 [facility] Heart Rate 60 10/18/2013 [facility] Respitory Rate 18 10/18/2013 [facility] Temperature Oral (F) 97.3 F 10/18/2013 [facility] Heart Rate 58 10/18/2013 [facility] Respitory Rate 18 10/18/2013 [facility] Systolic (mm Hg) 131 10/18/2013 [facility] Diastolic (mm Hg) 66 10/18/2013 [facility] Weight 57.727 10/18/2013 [facility] Height 157.48 cm 10/18/2013 [facility] Weight 63.636 10/18/2013 [facility] Height 160.02 cm 10/18/2013 [facility] Encounters Location Location Details Encounter Type Encounter Number Reason For Visit Attending Provider ADM Date DC Date Status Source [facility] OU [id number] CHEST PAIN LIANE ADRIANE 10/17/2013 10/18/2013 Active [facility] OBS Observation Patient [id number] Peyman Arteaga 11/07/2014 11/08/2014 [facility] Outpatient [id number] Kim Sheikh 11/26/2014 11/27/2014 [facility] Bedded Outpatient [id number] Ruperto Rodriguez 05/14/2015 05/14/2015 [facility] Outpatient [id number] KIM SHEIKH 05/19/2015 Active [facility] Outpatient [id number] KIM SHEIKH 05/20/2015 [facility] [id number] Alina Camarena 06/12/2015 06/13/2015 [facility] [id number] Izabela Patel 06/13/2015 06/13/2015 [facility] Outpatient [id number] KIM SHEIKH 06/16/2015 [facility] [id number] Corey Velasquez 06/17/2015 06/17/2015 [facility] Outpatient [id number] NURSE VISIT 06/26/2015 [facility] Outpatient [id number] KIM SHEIKH 06/30/2015 [facility] Outpatient [id number] Jayant Harris 06/30/2015 07/01/2015 [facility] [id number] Corey Velasquez 07/02/2015 07/02/2015 [facility] Outpatient [id number] OLIVIA MYKEL 07/07/2015 [facility] Outpatient [id number] OLIVIA HOGUE 07/07/2015 [facility] [id number] OLIVIA HOGUE 07/22/2015 [facility] Outpatient [id number] BG LIN 07/30/2015 [facility] Outpatient [id number] BG LIN 09/17/2015 [facility] Outpatient [id number] OLIVIA HOGUE 09/18/2015 [facility] Outpatient [id number] KIM SHEIKH 10/28/2015 [facility] Outpatient [id number] KIM SHEIKH 01/26/2016 [facility] Outpatient [id number] KIM SHEIKH 01/27/2016 [facility] Outpatient [id number] KIM SHEIKH 03/21/2016 [facility] [id number] KIM SHEIKH 04/06/2016 [facility] Outpatient [id number] NURSE VISIT 05/10/2016 [facility] Outpatient [id number] KIM SHEIKH 05/19/2016 [facility] Outpatient [id number] KIM CASTILLOERO 05/31/2016 [facility] Outpatient [id number] KIM CASTILLOERO 06/23/2016 [facility] Outpatient [id number] KIM SHEIKH 07/07/2016 [facility] Outpatient [id number] KIM SHEIKH 07/22/2016 [facility] Outpatient [id number] OLIVIA HOGUE 09/07/2016 [facility] Outpatient [id number] GAGANDEEP ARAUJO 09/14/2016 [facility] Outpatient [id number] KIM SHEIKH 10/21/2016 [facility] Outpatient [id number] KIM SHEIKH 10/24/2016 [facility] Outpatient [id number] KIM SHEIKH 01/18/2017 [facility] Outpatient [id number] KIM SHEIKH 01/18/2017 [facility] Outpatient [id number] KIM SHEIKH 02/17/2017 [facility] Outpatient [id number] GAGANDEEP ARAUJO 02/24/[address] [facility] Out[facility] [id number] Kim Sheikh 04/18/2017 04/19/2017 [facility] Outpatient [id number] KIM SHEIKH 05/02/2017 [facility] Outpatient [id number] KIM SHEIKH 05/22/2017 [facility] Outpatient [id number] KIM SHEIKH 06/07/2017 [facility] Outpatient [id number] GAGANDEEP ARAUJO 06/12/2017 [facility] Outpatient [id number] NURSE VISIT 06/22/2017 [facility] Outpatient [id number] GAGANDEEP ARAUJO 08/14/[address] [facility] Outpatient [id number] Kim Sheikh 08/14/2017 08/15/2017 [facility] Phone Message [id number] 08/21/2017 08/23/2017 [facility] OP Therapy Patients [id number] Olivia Lynne 09/06/2017 09/06/2017 [facility] [place] OP Therapy Patients [id number] Olivia Lynne 09/13/2017 10/13/2017 [facility] [place] [facility] Phone Message [id number] 10/04/2017 10/06/2017 [facility] Outpatient [id number] KIM SHEIKH 12/05/[address] [facility] Outpatient [id number] Kim Sheikh 12/05/2017 12/06/2017 [facility] Outpatient [id number] GAGANDEEP ARAUJO 12/11/[address] [facility] Outpatient [id number] Kmi Sheikh 12/11/2017 12/12/2017 [facility] Phone Message [id number] 12/18/2017 12/20/2017 [facility] Outpatient [id number] GAGANDEEP ARAUJO 01/01/2018 Active [facility] Outpatient [id number] Kim Sheikh 01/01/2018 01/02/2018 [facility] Outpatient [id number] KIM SHEIKH 01/11/[address] [facility] [id number] Kim Sheikh 01/11/2018 01/12/[address] [facility] Outpatient [id number] Kim Sheikh 01/11/2018 01/12/2018 [facility] Outpatient [id number] KIM SHEIKH 01/16/[address] [facility] Outpatient [id number] Kim Sheikh 01/16/2018 01/17/2018 [facility] Phone Message [id number] 02/01/2018 02/03/2018 [facility] Outpatient [id number] KIM SHEIKH 02/23/[address] [facility] Out[facility] [id number] Kim Sheikh 02/23/2018 02/24/2018 [facility] Phone Message [id number] 03/19/2018 03/21/2018 [facility] Phone Message [id number] 03/23/2018 03/25/2018 [facility] Phone Message [id number] 03/27/2018 03/29/2018 [facility] Outpatient [id number] KIM SHEIKH 04/04/[address] [facility] Outpatient [id number] Kim Sheikh 04/04/2018 04/05/2018 [facility] Phone Message [id number] 05/10/2018 05/12/[address] [facility] Recurring [id number] Kim Sheikh 06/04/2018 07/04/2018 [facility] Outpatient [id number] KIM SHEIKH 06/12/[address] [facility] Out[facility] [id number] Kim Sheikh 06/12/2018 06/13/2018 [facility] Phone Message [id number] 08/31/2018 09/02/[address] [facility] Rec[facility] [id number] Kim Sheikh 10/10/2018 10/10/2018 [facility] Outpatient [id number] KIM SHEIKH 10/15/[address] [facility] Out[facility] [id number] Kim Sheikh 10/15/2018 10/16/2018 [facility] Phone Message [id number] 10/16/2018 10/18/2018 [facility] Phone Message [id number] 12/07/2018 12/09/2018 [facility] Outpatient [id number] Kim Sheikh 12/18/2018 [facility] Outpatient [id number] Kim Sheikh 12/18/2018 12/19/2018 [facility] Phone Message [id number] 12/27/2018 12/29/2018 [facility] [id number] Kim Sheikh 12/27/2018 01/26/2019 [facility] Phone Message [id number] 12/31/2018 01/02/2019 [facility] Outpatient [id number] Gagandeep Araujo 01/03/2019 [facility] Outpatient [id number] Kim Sheikh 01/03/2019 01/04/2019 [facility] Phone Message [id number] 01/09/2019 01/11/2019 [facility] Outpatient [id number] Gagandeep Araujo 01/24/2019 [facility] Outpatient [id number] Kim Sheikh 01/24/2019 01/25/2019 [facility] Phone Message [id number] 02/07/2019 02/09/2019 [facility] Outpatient [id number] Gagandeep Araujo 02/26/2019 Active [facility] Phone Message [id number] 02/26/2019 02/28/2019 [facility] Outpatient [id number] Gagandeep Araujo 02/26/2019 02/27/2019 [facility] Outpatient [id number] Kim Sheikh 03/21/2019 Active [facility] Out[facility] [id number] Kim Sheikh 03/21/2019 03/22/2019 [facility] Phone Message [id number] 03/29/2019 03/31/2019 [facility] Phone Message [id number] 04/03/2019 04/05/2019 [facility] Phone Message [id number] 04/12/2019 04/14/2019 [facility] Phone Message [id number] 04/15/2019 04/17/2019 [facility] Outpatient [id number] Gagandeep [facility] 04/16/2019 [facility] Outpatient [id number] [facility] 04/16/2019 04/17/2019 [facility] Outpatient [id number] Estefani Jackson 04/22/2019 04/23/2019 [facility] Phone Message [id number] 04/22/2019 04/24/2019 [facility] Between Visit [id number] 04/24/2019 04/25/2019 [facility] Outpatient [id number] Kim Kori 05/01/2019 05/02/2019 [facility] Phone Message [id number] 05/02/2019 05/04/2019 [facility] Procedures Procedure Code Date Perfomer Comments Source Bone density scan<sup>1, 2</sup> [id number] 04/22/2019 Osteoporosis of the left femoral neck.IMPRESSION: 1. Osteopenia of the left femoral neck. 2. Osteopenia of the total left hip. 3. Osteopenia of the left forearm. [facility] Removal impacted cerumen using irrigation/lavage, unilateral [id number] 10/15/2018 [facility] Diabetic retinopathy screening<sup>1</sup> [id number] 12/28/[address] [facility] Diabetic retinopathy screening<sup>3</sup> [id number] 12/28/2017 Dr Blanc [facility] Endoscopy<sup>1</sup> [id number] 10/03/2017 [place] Hernia, gastritis Dr Mario [facility] Endoscopy<sup>2</sup> [id number] 10/03/2017 [place] Hernia, gastritis Dr Mario [facility] Endoscopy<sup>4</sup> [id number] 10/03/2017 [place] Hernia, gastritis Dr Mario [facility] Diabetic retinopathy screening<sup>2</sup> [id number] 08/22/2017 Dr Blanc [facility] Bone density scan<sup>1</sup> [id number] 04/18/2017 Osteoporosis of the left femoral neck. [facility] Bone density scan<sup>3</sup> [id number] 04/18/2017 Osteoporosis of the left femoral neck. [facility] [place] Bone density scan<sup>2</sup> [id number] 04/18/2017 Osteoporosis of the left femoral neck. [facility] Examining eye<sup>2</sup> [id number] 04/22/2016 Dr.Larry Blanc [facility] Fundoplication [id number] 08/11/2015 [facility] [place] Examining eye [id number] 02/09/2015 [facility] Endoscopy<sup>3</sup> [id number] 02/09/2015 [place] Hernia, severe gastritis [facility] Diabetic foot examination [id number] 10/12/2014 [facility] Mammogram [id number] 10/12/2013 Medical [facility] Bypass<sup>3</sup> [id number] 02/09/2013 Bypass of the right leg [facility] Bypass<sup>4</sup> [id number] 02/09/2013 Bypass of the right leg Medical [facility] [place] Bypass<sup>5</sup> [id number] 02/09/2013 Bypass of the right leg [facility] Cholecystectomy [id number] 09/11/1979 [facility] [place] Hysterectomy [id number] 09/11/1979 [facility] [place] section [id number] [facility] [place] Assessment and Plan No Data Provided for This Section Plan of Care No Data Provided for This Section Social History Social History Date Source Social History TypeResponse Employment/School Status: Retired. 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 Alcohol Past Smoking Status Former smoker; Type: Cigarettes; Previous treatment: None; Exposure to Tobacco Smoke None; Cigarette Smoking Last 365 Days No; Reg Smoking Cessation Counseling No; Number of years: 24; Started at age: 22.0; Stopped at age: 46; 09/14/2016 [facility] Social History TypeResponse Employment/School Status: Retired. 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 Alcohol Past Smoking Status Former smoker; Type: Cigarettes; Previous treatment: None; Exposure to Tobacco Smoke None; Cigarette Smoking Last 365 Days No; Reg Smoking Cessation Counseling No; Number of years: 24; Started at age: 22.0; Stopped at age: 46; entered on: 01/16/18 09/14/2016 [facility] Social History TypeResponse Alcohol Past Employment/School Status: Retired. 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 Smoking Status Former smoker; Type: Cigarettes; Previous treatment: None; Exposure to Tobacco Smoke None; Cigarette Smoking Last 365 Days No; Reg Smoking Cessation Counseling No; Number of years: 24; Started at age: 22.0; Stopped at age: 46; entered on: 04/16/19 05/20/2015 [facility] Social History TypeResponse Alcohol Past Employment/School Status: Retired. 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 Smoking Status Former smoker; Type: Cigarettes; Previous treatment: None; Exposure to Tobacco Smoke None; Cigarette Smoking Last 365 Days No; Reg Smoking Cessation Counseling No; Number of years: 24; Started at age: 22.0; Stopped at age: 46; entered on: 04/16/19 05/20/2015 [facility] Family History No Data Provided for This Section Advance Directives No Data Provided for This Section Functional Status No Data Provided for This Section
--- OUTSIDE RECORDS SUMMARY | 2019-05-14 19:02 | XMS REPORT | Summary of Care ---
Author Author [facility] Organization [facility] Address Unknown Phone Unavailable Care Team Providers Care Parts Chaser Name Role Phone William Mittal PCP Encounter HQ Rowena_yuly(FIN) [id number] Date(s): 06/30/15 - 06/30/15 [facility] [address] [place] [address]- Discharge Disposition: Home Attending Physician: Jayant Harris MD Admitting Physician: Jayant Harris MD Referring Physician: Jayant Harris MD Vital Signs No data available for this section Problem List Condition Effective Dates Status Health Status Informant Acute gastritis1 Resolved Benign essential 06/10/13 Active hypertension2 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, 4 CVA - Resolved Cerebrovascular accident(Confirmed) Diabetes mellitus Active type 2, controlled, with complications(Confir med) Dysphagia5, 6 11/12/14 Active Gastritis(Confirmed) Active Hernia of anterior 10/15/14 Active abdominal wall7, 8 Hyperlipidemia9, 10 10/15/14 Active Ttnqoghhlgctfmx48 06/10/13 Active Hyperthyroidism(Conf Resolved irmed) Awltqwdxqqzi99, 13 11/27/14 Active Impacted iosxejq05 05/26/14 Resolved Mixed anxiety and 05/08/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 bieqviid67 Gxedwtnlofsoba21 06/10/13 Active Nltpiihjnp36, 18 10/15/14 Active Peripheral vascular 10/15/14 Active awunxwc87, 20 Unsteady gait21, 22 10/15/14 Active Vitamin D 10/15/14 Active hgarrzmnzu09, 24 1Data migrated from [employer] on [...] on 04/09/15. Originally documented as SULFA. Medications No data available for this section Results No data available for this section Immunizations Vaccine Date Refusal Reason influenza virus vaccine, inactivated 06/26/15 Procedures Procedure Date Related Diagnosis Body Site [...]
--- OUTSIDE RECORDS SUMMARY | 2019-05-14 19:02 | XMS REPORT | CCD ---
Author Author Auto Generated Organization [facility] Address Unknown Phone Unavailable Care Team Providers Care Automobile Radio Repairer Name Role Phone Miya Washburn CP William Mittal PP Allergies, Adverse Reactions, Alerts Substance Reaction Status sulfa Active Problem List Condition Effective Dates Status CVA - Cerebrovascular accident Resolved Diabetes mellitus Active HTN - Hypertension Active Medications Medication Instructions Start Date End Date Status NS 1,000 mL 1,000 mL, Rate: 75 ml/hr, Infuse 10/18/2013 10/18/2013 Discontinued over: 13.3 hr, Route: IV, Dosing Weight 57.727 kg, Total Volume: 1,000, Start date: 10/18/13 4:27:00, Duration: 30 day, Stop date: 11/17/13 4:26:00 nitroglycerin 0.4 mg 0.4 mg, 1 tab, Route: SL, Drug 10/18/2013 10/18/2013 Discontinued sublingual tablet form: TAB, Q5Min, PRN Chest Pain, Start date: 10/18/13 1:21:00, Duration: 30 day, Stop date: 11/17/13 1:20:00(Same as:Nitroquick, Nitrostat)"Do Not Crush" Sublingual tablet atropine 0.5 mg, 5 mL, Route: IVP, Drug 10/18/2013 10/18/2013 Discontinued form: INJ, PRN, PRN Bradycardia, Start date: 10/18/13 1:21:00, Duration: 30 day, Stop date: 11/17/13 1:20:00 amLODIPine 5 mg, PO, Daily, 0 Refill(s) 10/18/2013 Ordered methimazole 10 mg, PO, Daily, 0 Refill(s) 10/18/2013 Ordered metFORMIN 500 mg, PO, Daily, 0 Refill(s) 10/18/2013 Ordered ALPRAZOLam 0.25 mg =0.25 mg, PO, BID, 0 Refill(s) 10/18/2013 Ordered oral tablet, disintegrating hydrochlorothiazide 25 mg, PO, Daily, 0 Refill(s) 10/18/2013 Ordered losartan 100 mg oral 100 mg=1 tab, PO, Daily, # 30 tab, 10/18/2013 Ordered tablet 0 Refill(s) aspirin 81 mg, PO, Daily, 0 Refill(s) 10/18/2013 Ordered Coreg 3.125 mg, 1 tab, Route: PO, Drug 10/18/2013 10/18/2013 Discontinued form: TAB, Q12H, Dosing Weight 57.727, kg, Start date: 10/18/13 9:00:00, Duration: 30 day, Stop date: 11/16/13 21:00:00Give with food. (Same As: Coreg) enoxaparin 40 mg, 0.4 mL, Route: SUB-Q, Drug 10/18/2013 10/18/2013 Discontinued form: INJ, [id number], Dosing Weight 57.727, kg, Start date: 10/18/13 9:00:00, Duration: 30 day, Stop date: 11/16/13 9:00:00(Same as: Lovenox) Saline Flush 0.9% 5 ml, Route: IVP, Drug Form: INJ, 10/18/2013 10/18/2013 Discontinued Dosing Weight 63.636, kg, PRN, PRN Line Flush, Start date: 10/18/13 0:45:00, Duration: 30 day, Stop date: 11/17/13 0:44:00(Same as: BD Posiflush) Saline Flush 0.9% 5 ml, Route: IVP, Drug Form: INJ, 10/18/2013 10/18/2013 Discontinued Dosing Weight 63.636, kg, Q12H, Start date: 10/18/13 9:00:00, Duration: 30 day, Stop date: 11/16/13 21:00:00(Same as: BD Posiflush) methimazole 10 mg, 2 tab, Route: PO, Drug form: 10/18/2013 10/18/2013 Discontinued TAB, Daily, Dosing Weight 57.727, kg, Start date: 10/18/13 9:00:00, Duration: 30 day, Stop date: 11/16/13 9:00:00 nitroglycerin SL Tab 0.4 mg, 1 tab, Route: SL, Drug 10/18/2013 10/18/2013 Discontinued form: TAB, Q5Min, Dosing Weight 63.636, kg, PRN Chest Pain, Start date: 10/18/13 0:45:00, Duration: 3 doses or times, Stop date: Limited # of times(Same as:Nitroquick, Nitrostat)"Do Not Crush" Sublingual tablet hydrochlorothiazide 25 mg, 1 tab, Route: PO, Drug form: 10/18/2013 10/18/2013 Discontinued TAB, Daily, Dosing Weight 57.727, kg, Start date: 10/18/13 9:00:00, Duration: 30 day, Stop date: 11/16/13 9:00:00(Same as: Hydrodiuril) With food. losartan 100 mg, 2 tab, Route: PO, Drug 10/18/2013 10/18/2013 Discontinued form: TAB, Daily, Dosing Weight 57.727, kg, Start date: 10/18/13 9:00:00, Duration: 30 day, Stop date: 11/16/13 9:00:00(Same as: Cozaar) aspirin 81 mg, 1 tab, Route: PO, Drug form: 10/18/2013 10/18/2013 Discontinued CHEWTAB, Daily, Dosing Weight 57.727, kg, Start date: 10/18/13 9:00:00, Duration: 30 day, Stop date: 11/16/13 9:00:00Take with food. amLODIPine 5 mg, 1 tab, Route: PO, Drug form: 10/18/2013 10/18/2013 Discontinued TAB, Daily, Dosing Weight 57.727, kg, Start date: 10/18/13 9:00:00, Duration: 30 day, Stop date: 11/16/13 9:00:00(Same as: Norvasc) ALPRAZOLam 0.25 mg, 1 tab, Route: PO, Drug 10/18/2013 10/18/2013 Discontinued form: TAB, BID, Dosing Weight 57.727, kg, Start date: 10/18/13 9:00:00, Duration: 30 day, Stop date: 11/16/13 17:00:00With food or milk(Same as: Xanax) Vital Signs Most recent to oldest [Reference Range]: 1 2 3 Height 157.48 cm (10/18/2013 01:18:00) 160.02 cm (10/17/2013 19:23:00) Temperature Oral [96.4-99.1 DegF] 97.9 DegF (10/18/2013 16:00:00) 97.5 DegF (10/18/2013 12:16:00) 97.3 DegF (10/18/2013 07:39:00) Systolic Blood Pressure [90-140 mmHg] 122 mmHg (10/18/2013 16:00:00) 115 mmHg (10/18/2013 12:16:00) 131 mmHg (10/18/2013 07:39:00) Diastolic Blood Pressure [60-90 mmHg] 64 mmHg (10/18/2013 16:00:00) 57 mmHg *LOW* (10/18/2013 12:16:00) 66 mmHg (10/18/2013 07:39:00) Respiratory Rate [14-20 BRMIN] 18 BRMIN (10/18/2013 16:00:00) 18 BRMIN (10/18/2013 12:16:00) 18 BRMIN (10/18/2013 07:39:00) Peripheral Pulse Rate [60-100 bpm] 62 bpm (10/18/2013 16:00:00) 60 bpm (10/18/2013 12:16:00) 58 bpm *LOW* (10/18/2013 07:39:00) Weight 57.727 kg (10/18/2013 01:18:00) 63.636 kg (10/17/2013 19:23:00) Results BEDSIDE GLUCOSE TESTING Most recent to oldest [Reference Range]: 1 2 3 Glucose POC [70-99 mg/dL] 92 mg/dL 1 (10/18/2013 06:32:00) 140 mg/dL 2 *HI* (10/18/2013 00:22:00) Gluc POC Comment 1 Notified RN/MD *NA* (10/18/2013 06:32:00) 1Interpretive Data: Upper Reportable Limit: 200 mg/dL. 2Interpretive Data: Upper Reportable Limit: 200 mg/dL. CHEMISTRY Most recent to oldest [Reference Range]: 1 2 3 Sodium Lvl [135-145 mEq/L] 136 mEq/L (10/17/2013 20:45:00) Potassium Lvl [3.5-5.1 mEq/L] 3.9 mEq/L (10/17/2013 20:45:00) Chloride Lvl [95-109 mEq/L] 100 mEq/L (10/17/2013 20:45:00) CO2 [24-32 mEq/L] 24 mEq/L (10/17/2013 20:45:00) AGAP [10.0-20.0 mEq/L] 15.9 mEq/L (10/17/2013 20:45:00) Creatinine Lvl [0.5-1.4 mg/dL] 0.7 mg/dL (10/17/2013 20:45:00) eGFR 83 mL/min/1.73m2 3 *NA* (10/17/2013 20:45:00) BUN [7-22 mg/dL] 27 mg/dL *HI* (10/17/2013 20:45:00) Glucose Lvl [70-99 mg/dL] 130 mg/dL 4 *HI* (10/17/2013 20:45:00) Calcium Lvl [8.5-10.5 mg/dL] 8.7 mg/dL (10/17/2013 20:45:00) Magnesium Lvl [1.8-2.4 mg/dL] 2.0 mg/dL (10/17/2013 20:45:00) Total CK [12-191 unit/L] 543 unit/L *HI* (10/18/2013 07:58:00) 600 unit/L 5 *HI* (10/18/2013 02:30:00) 132 unit/L (10/17/2013 20:45:00) CK MB [0.5-3.6 ng/mL] 10.0 ng/mL *HI* (10/18/2013 07:58:00) 13.9 ng/mL *HI* (10/18/2013 02:30:00) 2.7 ng/mL (10/17/2013 20:45:00) CK MB Index [0.0-2.5] 1.8 (10/18/2013:58:00) 2.3 (10/18/2013 02:30:00) 2.0 (10/17/2013 20:45:00) Troponin-I [0.00-0.40 ng/mL] 0.02 ng/mL (10/18/2013 07:58:00) 0.04 ng/mL (10/18/2013 02:30:00) 0.02 ng/mL (10/17/2013 20:45:00) CHD Risk [3.90-5.80] 2.68 *LOW* (10/18/2013:58:00) Chol [<=199 mg/dL] 150 mg/dL (10/18/2013:58:00) Trig [<=149 mg/dL] 91 mg/dL (10/18/2013:58:00) HDL [>=61 mg/dL] 56 mg/dL *LOW* (10/18/2013:58:00) LDL (Calculated) [<=99 mg/dL] 76 mg/dL (10/18/2013:58:00) 3Result Comment: The eGFR is calculated using the [...] be mul tiplied by the estimated BMI. 4Interpretive Data: Adult reference range values reflect the clinical guidelines of the [place] [employer]. 5Result Comment: Critical Result(s) called to _FidelAwa Mercado at _10/18/2013 03:07 by_bgq. Read back OK. HEMATOLOGY Most recent to oldest [Reference Range]: 1 2 3 WBC [3.7-10.4 K/CMM] 9.1 K/CMM (10/17/2013 20:45:00) RBC [4.20-5.40 M/CMM] 4.01 M/CMM *LOW* (10/17/2013 20:45:00) Hgb [12.0-16.0 g/dL] 12.4 g/dL (10/17/2013:45:00) Hct [36.0-48.0 %] 36.6 % (10/17/2013:45:00) MCV [81.0-99.0 fL] 91.2 fL (10/17/2013:45:00) MCH [27.0-31.0 pg] 31.0 pg (10/17/2013:45:00) MCHC [32.0-36.0 g/dL] 33.9 g/dL (10/17/2013:45:00) RDW [11.5-14.5 %] 13.8 % (10/17/2013:45:00) Platelet [133-450 K/CMM] 305 K/CMM (10/17/2013:45:00) MPV [7.4-10.4 fL] 7.4 fL (10/17/2013:45:00) Segs [45.0-75.0 %] 80.0 % *HI* (10/17/2013:45:00) Lymphocytes [20.0-40.0 %] 12.7 % *LOW* (10/17/2013:45:00) Monocytes [2.0-12.0 %] 4.5 % (10/17/2013:45:00) Eosinophils [0.0-4.0 %] 2.4 % (10/17/2013:45:00) Basophils [0.0-1.0 %] 0.4 % (10/17/2013:45:00) Segs-Bands # [1.5-8.1 K/CMM] 7.3 K/CMM (10/17/2013 20:45:00) Lymphocytes # [1.0-5.5 K/CMM] 1.2 K/CMM (10/17/2013 20:45:00) Monocytes # [0.0-0.8 K/CMM] 0.4 K/CMM (10/17/2013 20:45:00) Eosinophils # [0.0-0.5 K/CMM] 0.2 K/CMM (10/17/2013 20:45:00) Basophils # [0.0-0.2 K/CMM] 0.0 K/CMM (10/17/2013 20:45:00) PT [12.0-14.7 seconds] 12.2 seconds (10/17/2013 20:45:00) INR [0.85-1.17] 0.91 6 (10/17/2013 20:45:00) PTT [22.9-35.8 seconds] 30.2 seconds 7 (10/18/2013 07:58:00) 29.9 seconds 8 (10/17/2013 20:45:00) 6Interpretive Data: RECOMMENDED RANGES FOR PROTIME INR: 2.0-3.0 for most medical and surgical thromboembolic states. 2.5-3.5 for artificial heart valves and recurrent embolism. INR SHOULD BE USED ONLY FOR PATIENTS ON STABLE ANTICOAGULANT THERAPY. 7Interpretive Data: Heparin Therapeutic Range: 57 - 92 Seconds 8Interpretive Data: Heparin Therapeutic Range: 57 - 92 Seconds Procedures Procedures Date Related Diagnosis section
--- OUTSIDE RECORDS SUMMARY | 2019-05-14 19:02 | XMS REPORT | Summary of Care ---
Author Author [facility] Organization [facility] Address Unknown Phone Unavailable Care Team Providers Care Box Car Loader Name Role Phone William Mittal PCP Encounter HQ Rowena_yuly(FIN) [id number] Date(s): 06/17/15 - 06/17/15 [facility] [address] [place] [address]- Discharge Diagnosis: Acute gastritis Discharge Disposition: Home Attending Physician: Corey Velasquez MD Vital Signs 1 2 3 Most recent to oldest [Reference Range]: 167.64 cm (06/17/15 12:08 PM) Height 1 2 3 Most recent to oldest [Reference Range]: 98.0 DegF (06/17/15 6:06 PM) 98.1 DegF (06/17/15 12:08 PM) Temperature Oral [96.4-99.1 DegF] 1 2 3 Most recent to oldest [Reference Range]: 133/75 mmHg (06/17/15 6:06 PM) 138/68 mmHg (06/17/15 3:00 PM) 143/81 mmHg *HI* (06/17/15 12:08 PM) Blood Pressure [90-140/60-90 mmHg] 1 2 3 Most recent to oldest [Reference Range]: 16 BRMIN (06/17/15 6:06 PM) 16 BRMIN (06/17/15 3:00 PM) 16 BRMIN (06/17/15 12:08 PM) Respiratory Rate [14-20 BRMIN] 1 2 3 Most recent to oldest [Reference Range]: 70 bpm (06/17/15 6:06 PM) 74 bpm (06/17/15 3:00 PM) 71 bpm (06/17/15 12:08 PM) Peripheral Pulse Rate [60-100 bpm] 1 2 3 Most recent to oldest [Reference Range]: 45.455 kg (06/17/15 12:08 PM) Weight 1 2 3 Most recent to oldest [Reference Range]: 16.17 m2 (06/17/15 12:08 PM) Body Mass Index Problem List Condition Effective Dates Status Health Status Informant Acute gastritis1 Resolved Benign essential 06/10/13 Active hypertension2 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, 4 CVA - Resolved Cerebrovascular accident(Confirmed) Diabetes mellitus Active type 2, controlled, with complications(Confir med) Dysphagia5, 6 11/12/14 Active Gastritis(Confirmed) Active Hernia of anterior 10/15/14 Active abdominal wall7, 8 Hyperlipidemia9, 10 10/15/14 Active Vedijuvtddhahvv87 06/10/13 Active Hyperthyroidism(Conf Resolved irmed) Zzfjhbgijrtp06, 13 11/27/14 Active Impacted 05/26/14 Resolved Mixed anxiety and 05/08/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 matdzffi39 Aiitwfompcbfew18 06/10/13 Active Elfncsogbf72, 18 10/15/14 Active Peripheral vascular 10/15/14 Active ujclhpu55, 20 Unsteady gait21, 22 10/15/14 Active Vitamin D 10/15/14 Active kryboojpzk66, 24 1Data migrated from [employer] on [...] on 04/09/15. Originally documented as SULFA. Medications Carafate 1 g/10 mL oral suspension 1 gm=10 ml, PO, Before Meals & Bedtime, # 200 ml, 0 Refill(s), Pharmacy: [facility]/pharmacy #[id number] Start Date: 06/17/15 Status: Ordered famotidine 20 mg, Route: IVP, ONCE, Dosing Weight 45.455, kg, Priority: STAT, Start date: 14:07:00, Stop date: 06/17/15 14:07:00 Start Date: 06/17/15 Stop Date: 06/17/15 Status: Completed GI cocktail 30 mL, Route: PO, Dosing Weight 45.455, kg, ONCE, STAT, Start date: 06/17/15 14: 07:00, Stop date: 06/17/15 14:07:00 Start Date: 06/17/15 Stop Date: 06/17/15 Status: Completed Protonix 40 mg, Route: IVP, ONCE, Dosing Weight 45.455, kg, Priority: STAT, Start date: 14:10:00, Stop date: 06/17/15 14:10:00 Start Date: 06/17/15 Stop Date: 06/17/15 Status: Completed Saline Flush 0.9% 10 mL, Route: IVP, Drug Form: INJ, Dosing Weight 45.455, kg, PRN, PRN Line Flush , Start date: 06/17/15 14:07:00, Duration: 30 day, Stop date: 07/17/15 13:06:00 Start Date: 06/17/15 Stop Date: 06/17/15 Status: Discontinued Sodium Chloride 0.9% (Bolus) IV 1,000 mL, Infuse Over: 1 hr, Route: IV, ONCE, Priority: STAT, Dosing Weight 45.4 55 kg, Start date: 06/17/15 14:07:00, Duration: 1 doses or times, Stop date: 03/25 14:07:00 Start Date: 06/17/15 Stop Date: 06/17/15 Status: Completed Results ELECTROLYTES Most recent to 1 oldest [Reference Range]: Sodium Lvl [135-145 140 mEq/L mEq/L] (06/17/15 2:30 PM) Potassium Lvl 4.0 mEq/L [3.5-5.1 mEq/L] (06/17/15 2:30 PM) Chloride Lvl [95-109 104 mEq/L mEq/L] (06/17/15 2:30 PM) CO2 [24-32 mEq/L] 30 mEq/L (06/17/15 2:30 PM) AGAP [10.0-20.0 10.0 mEq/L mEq/L] (06/17/15 2:30 PM) CHEM PANEL Most recent to 1 oldest [Reference Range]: Creatinine Lvl 0.8 mg/dL [0.5-1.4 mg/dL] (06/17/15 2:30 PM) eGFR 70 mL/min/1.73m2 1 *NA* (06/17/15 2:30 PM) BUN [7-22 mg/dL] 14 mg/dL (06/17/15 2:30 PM) B/C Ratio [6-25] 18 (06/17/15 2:30 PM) Glucose Lvl [70-99 90 mg/dL mg/dL] (06/17/15 2:30 PM) Total Protein 7.4 g/dL [6.4-8.4 g/dL] (06/17/15 2:30 PM) Albumin Lvl [3.5-5.0 3.9 g/dL g/dL] (06/17/15 2:30 PM) Globulin [2.0-4.0 3.5 g/dL g/dL] (06/17/15 2:30 PM) A/G Ratio [0.7-1.6] 1.1 (06/17/15 2:30 PM) Calcium Lvl 9.7 mg/dL [8.5-10.5 mg/dL] (06/17/15 2:30 PM) ALT [0-65 unit/L] 30 unit/L (06/17/15 2:30 PM) AST [0-37 unit/L] 25 unit/L (06/17/15 2:30 PM) Alk Phos [39-136 78 unit/L unit/L] (06/17/15 2:30 PM) Bili Total [0.2-1.3 0.7 mg/dL mg/dL] (06/17/15 2:30 PM) Lipase Lvl [73-393 225 unit/L unit/L] (06/17/15 2:30 PM) 1Result Comment: The eGFR is calculated [...] be mul tiplied by the estimated BMI. CARDIAC ENZYMES Most recent to 1 oldest [Reference Range]: Troponin-I <0.02 ng/mL [0.00-0.40 ng/mL] (06/17/15 2:30 PM) HEMATOLOGY Most recent to 1 oldest [Reference Range]: WBC [3.7-10.4 K/CMM] 6.3 K/CMM (06/17/15 2:30 PM) RBC [4.20-5.40 4.56 M/CMM M/CMM] (06/17/15 2:30 PM) Hgb [12.0-16.0 g/dL] 13.4 g/dL (06/17/15 2:30 PM) Hct [36.0-48.0 %] 41.7 % (06/17/15 2:30 PM) MCV [80.0-98.0 fL] 91.5 fL (06/17/15 2:30 PM) MCH [27.0-31.0 pg] 29.3 pg (06/17/15 2:30 PM) MCHC [32.0-36.0 32.0 g/dL g/dL] (06/17/15 2:30 PM) RDW [11.5-14.5 %] 13.7 % (06/17/15 2:30 PM) Platelet [133-450 196 K/CMM K/CMM] (06/17/15 2:30 PM) MPV [7.4-10.4 fL] 9.4 fL (06/17/15 2:30 PM) Segs [45.0-75.0 %] 62.5 % (06/17/15 2:30 PM) Lymphocytes 27.3 % [20.0-40.0 %] (06/17/15 2:30 PM) Monocytes [2.0-12.0 7.3 % %] (06/17/15 2:30 PM) Eosinophils [0.0-4.0 2.3 % %] (06/17/15 2:30 PM) Basophils [0.0-1.0 0.6 % %] (06/17/15 2:30 PM) Segs-Bands # 4.0 K/CMM [1.5-8.1 K/CMM] (06/17/15 2:30 PM) Lymphocytes # 1.7 K/CMM [1.0-5.5 K/CMM] (06/17/15 2:30 PM) Monocytes # [0.0-0.8 0.5 K/CMM K/CMM] (06/17/15 2:30 PM) Eosinophils # 0.1 K/CMM [0.0-0.5 K/CMM] (06/17/15 2:30 PM) Immunizations No data available for this [...]
--- OUTSIDE RECORDS SUMMARY | 2019-05-14 19:02 | XMS REPORT | Summary of Care ---
Author Author [facility] Organization [facility] Address Unknown Phone Unavailable Care Team Providers Care Ship Scaler Name Role Phone Wliliam Mittal PCP Encounter HQ Abigail(FIN) [phone] Date(s): 05/14/15 - 05/14/15 [facility] [address] [place] [address]- [phone] Final: Discharge Disposition: Home Attending Physician: Ruperto Rodriguez MD Referring Physician: Ruperto Rodriguez MD Vital Signs Most recent to 1 oldest [Reference Range]: Height 144.78 cm (05/13/15 3:57 PM) Most recent to 1 oldest [Reference Range]: Blood Pressure 142/70 mmHg [90-140/60-90 mmHg] *HI* (05/14/15 7:47 AM) Most recent to 1 oldest [Reference Range]: Respiratory Rate 16 BRMIN [14-20 BRMIN] (05/14/15 7:47 AM) Most recent to 1 oldest [Reference Range]: Peripheral Pulse 66 bpm Rate [60-100 bpm] (05/14/15 7:47 AM) Most recent to 1 oldest [Reference Range]: Weight 72.727 kg (05/13/15 3:57 PM) Most recent to 1 oldest [Reference Range]: Body Mass Index 34.7 m2 (05/13/15 3:57 PM) Problem List Condition Effective Dates Status Health Status Informant Acute gastritis1 Resolved Benign essential 06/10/13 Active hypertension2 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, 4 CVA - Resolved Cerebrovascular accident(Confirmed) Diabetes Active mellitus(Confirmed) Disorder associated 09/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 type 2 diabetes mellitus5, 6 Disorder of vision7, 10/15/14 Active 8 DM (diabetes Active mellitus)(Confirmed) Dysphagia9, 10 11/12/14 Active Foot pain11, 12 10/15/14 Active 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 cerebrovascular tacyddgv35 Hernia of anterior 10/15/14 Active abdominal wall14, 15 HTN - Active Hypertension(Confirm ed) Xdoxuyjkilwhge08, 17 10/15/14 Active Onbndvzakgwsrkp02 06/10/13 Active Hyperthyroidism(Conf Resolved irmed) Hiddwziyviea59, 20 11/27/14 Active Impacted utuqaer59 05/26/14 Resolved Mixed anxiety and 05/08/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 epthqxut00 Jpgmriotaqjmfh05 06/10/13 Active Irxjxelnun69, 25 10/15/14 Active Peripheral vascular 10/15/14 Active auawmvz02, 27 Screening - health 10/15/14 Active check28, 29 Screening for 10/15/14 Active malignant neoplasm of colon30, 31 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 [...] 02/10/15. 11Data migrated from [employer] on 03/18/15. 12Data migrated from [employer] on 02/10/15. 13Data migrated from [employer] on 02/07/15. 14Data migrated from [employer] on 03/18/15. 15Data migrated from [employer] on 02/10/15. 16Data migrated from [employer] on 03/18/15. 17Data migrated from [employer] on 02/10/15. 18Data migrated from [employer] on 02/07/15. 19Data migrated from [employer] on 03/18/15. 20Data migrated from [employer] on 02/10/15. 21Data migrated from [employer] on 03/28/15. 22Data migrated from [employer] on 02/07/15. 23Data migrated from [employer] on 02/07/15. 24Data migrated from [employer] on 03/18/15. 25Data migrated from [employer] on 02/10/15. 26Data migrated from [employer] on 03/18/15. 27Data migrated from [employer] on 02/10/15. 28Data migrated from [employer] on 03/18/15. 29Data migrated from [employer] on 02/10/15. 30Data migrated from [employer] on 03/18/15. 31Data migrated from [employer] on 02/10/15. 32Data migrated from [employer] on 03/18/15. 33Data migrated from [employer] on 02/10/15. 34Data migrated from [employer] on 03/18/15. 35Data migrated from [employer] on 02/10/15. 36Data migrated from [employer] on 03/18/15. 37Data migrated from [employer] on 02/10/15. Allergies, Adverse Reactions, Alerts Substance Reaction Severity Status sulfa Active sulfa drugs1 Active 1Data migrated from [employer] on 04/09/15. Originally documented as SULFA. Medications aspirin 0 Refill(s) Start Date: 05/13/15 Status: Ordered pantoprazole 40 mg oral enteric coated tablet 40 mg=1 tab, PO, Daily, # 30 tab, 0 Refill(s) Start Date: 05/13/15 Status: Ordered Tylenol with Codeine #3 oral tablet 1 - 2 tab, PO, Q4H, PRN Pain, # 20 tab, 0 Refill(s) Start Date: 05/13/15 Stop Date: 05/15/15 Status: Ordered Results No data available for this section Immunizations No data available for this section Procedures Procedure Date Related Diagnosis Body Site section Social History Social History Type Response Alcohol Past Smoking Status Former smoker; Type: Cigarettes; Number of years: 24; Started at age: [age]; Stopped at age: 46; Previous treatment: None; Exposure to Tobacco Smoke None; Cigarette Smoking Last 365 Days No; Reg Smoking Cessation Counseling No Assessment and Plan No data available for this section
--- OUTSIDE RECORDS SUMMARY | 2019-05-14 19:02 | XMS REPORT | Summary of Care ---
Author Organization Unknown Address Unknown Phone Unavailable Care Team Providers Care It Integration Architect Name Role Phone William Mittal PCP Encounter HQ Encntr_yuly(FIN) [phone] Date(s): 11/26/14 - 11/26/14 [facility] [address] [place] [address]- [phone] Discharge Disposition: Home Physician Attending: Carolyne Hogan MD Physician_Referring: Carolyne Hogan MD Vital Signs No data available for this section Problem List Condition Effective Dates Status Health Status Informant CVA - Resolved Cerebrovascular accident(Confirmed) Diabetes Active mellitus(Confirmed) DM (diabetes Active mellitus)(Confirmed) HTN - Active Hypertension(Confirm ed) Hyperthyroidism(Conf Active irmed) Allergies, Adverse Reactions, Alerts Substance Reaction Severity Status sulfa Active Medications No data available for this section Results No data available for this section Immunizations No data available for this section Procedures No data available for this section Social History Social History Type Response Smoking Status Former smoker; Type: Cigarettes; Number of years: 24; Started at age: 22.0; Stopped at age: 46; Previous treatment: None; Exposure to Tobacco Smoke None; Cigarette Smoking Last 365 Days No; Reg Smoking Cessation Counseling No Assessment and Plan No data available for this section
--- OUTSIDE RECORDS SUMMARY | 2019-05-14 19:02 | XMS REPORT | Summary of Care ---
Author Organization Unknown Address Unknown Phone Unavailable Care Team Providers Care Staff Genetic Counselor Name Role Phone William Mittal PCP Encounter [facility] Abigail(FIN) [phone] Date(s): 11/07/14 - 11/08/14 [facility] [address] [place] [address]- Discharge Disposition: Home Physician Attending: Peyman Arteaga MD Physician Admitting: Peyman Arteaga MD Vital Signs 1 2 3 Most recent to oldest [Reference Range]: 157.48 cm (11/07/14 3:25 PM) 157.48 cm (11/07/14 7:51 AM) Height 58.455 kg (11/07/14 3:27 PM) Current Weight 97.9 DegF (11/08/14 12:27 PM) 97.7 DegF (11/08/14 8:00 AM) 97.9 DegF (11/08/14 4:00 AM) Temperature Oral [96.4-99.1 DegF] 166/75 mmHg *HI* (11/08/14 2:00 PM) 154/76 mmHg *HI* (11/08/14 1:45 PM) 135/84 mmHg (11/08/14 1:35 PM) Blood Pressure [90-140/60-90 mmHg] 17 BRMIN (11/08/14 2:00 PM) 15 BRMIN (11/08/14 1:45 PM) 14 BRMIN (11/08/14 1:35 PM) Respiratory Rate [14-20 BRMIN] 76 bpm (11/08/14 12:27 PM) 65 bpm (11/08/14 8:00 AM) 62 bpm (11/08/14 4:00 AM) Peripheral Pulse Rate [60-100 bpm] 58.455 kg (11/07/14 3:25 PM) 62.727 kg (11/07/14 7:51 AM) Weight 23.57 m2 (11/07/14 3:25 PM) 25.29 m2 (11/07/14 7:51 AM) Body Mass Index Problem List Condition Effective Dates Status Health Status Informant CVA - Resolved Cerebrovascular accident(Confirmed) Diabetes Active mellitus(Confirmed) DM (diabetes Active mellitus)(Confirmed) HTN - Active Hypertension(Confirm ed) Hyperthyroidism(Conf Active irmed) Allergies, Adverse Reactions, Alerts Substance Reaction Severity Status sulfa Active Medications Acidophilus Probiotic Blend 1 cap, PO, Daily, 0 Refill(s) Start Date: 11/07/14 Stop Date: 12/07/14 Status: Ordered ALPRAZOLam 0.25 mg, 1 tab, Route: PO, Drug form: TAB, BID, Dosing Weight 58.455, kg, Start date: 11/08/14 9:00:00, Duration: 30 day, Stop date: 12/07/14 17:00:00 Notes: With food or milk(Same as: Xanax) Start Date: 11/08/14 Stop Date: 11/08/14 Status: Discontinued amLODIPine 5 mg, 1 tab, Route: PO, Drug form: TAB, Q12H, Dosing Weight 58.455, kg, Start da te: 11/08/14 9:00:00, Duration: 30 day, Stop date: 12/07/14 21:00:00 Notes: (Same as: Norvasc) Start Date: 11/08/14 Stop Date: 11/08/14 Status: Discontinued aspirin 81 mg, 1 tab, Route: PO, Drug form: ECTAB, Daily, Dosing Weight 58.455, kg, Star t date: 11/08/14 9:00:00, Duration: 30 day, Stop date: 12/07/14 9:00:00 Notes: Do not crush or chew.(Same As: Ecotrin) Start Date: 11/08/14 Stop Date: 11/08/14 Status: Discontinued Ativan 1 mg, Route: IVP, Drug form: INJ, ONCE, Dosing Weight 62.727, kg, PRN Anxiety, S tart date: 11/07/14 13:52:00 Start Date: 11/07/14 Stop Date: 11/07/14 Status: Completed Carafate 1 gm, 10 mL, Route: PO, Drug form: SUSP, BID, Dosing Weight 62.727, kg, Priority : NOW, Start date: 11/07/14 12:33:00, Duration: 30 day, Stop date: 12/07/14 9:00 :00 Notes: Enteral feeds may interfere with the absorption of this medication. [place] e well. Take 1 hr before or 2 hrs after antacids, dairy pdt, minerals & meals. (Same As: Carafate) Start Date: 11/07/14 Stop Date: 11/08/14 Status: Discontinued Cozaar 100 mg, 2 tab, Route: PO, Drug form: TAB, Daily, Start date: 11/08/14 9:00:00, D uration: 30 day, Stop date: 12/07/14 9:00:00 Notes: (Same as: Cozaar) Start Date: 11/08/14 Stop Date: 11/08/14 Status: Discontinued Dextrose 50% Syringe 25 gm, 50 mL, Route: IVP, Drug Form: INJ, Dosing Weight 62.727, kg, PRN, PRN Blo od Glucose Results, Start date: 11/07/14 12:29:00, Duration: 30 day, Stop date: 12/07/14 13:28:00 Start Date: 11/07/14 Stop Date: 11/08/14 Status: Discontinued Dextrose 50% Syringe 12.5 gm, 25 mL, Route: IVP, Drug Form: INJ, Dosing Weight 62.727, kg, PRN, PRN B lood Glucose Results, Start date: 11/07/14 12:29:00, Duration: 30 day, Stop date : 12/07/14 13:28:00 Start Date: 11/07/14 Stop Date: 11/08/14 Status: Discontinued docusate 100 mg, 1 cap, Route: PO, Drug form: CAP, BID, Dosing Weight 62.727, kg, PRN Con stipation, Start date: 11/07/14 12:24:00, Duration: 30 day, Stop date: 12/07/14 12:23:00 Notes: (Same as: Colace) (Do Not Crush) Start Date: 11/07/14 Stop Date: 11/08/14 Status: Discontinued glucagon 1 mg, Route: IM, Drug form: PDR/INJ, PRN, Dosing Weight 62.727, kg, PRN Blood Gl ucose Results, Start date: 11/07/14 12:29:00, Duration: 30 day, Stop date: 12/07 13:28:00 Start Date: 11/07/14 Stop Date: 11/08/14 Status: Discontinued hydrochlorothiazide 25 mg oral tablet 25 mg, 1 tab, Route: PO, Drug form: TAB, Daily, Start date: 11/08/14 9:00:00, Du ration: 30 day, Stop date: 12/07/14 9:00:00 Notes: (Same as: Hydrodiuril) With food. Start Date: 11/08/14 Stop Date: 11/08/14 Status: Discontinued hydrochlorothiazide-losartan 25 mg-100 mg oral tablet 1 tab, Route: PO, Drug Form: TAB, Dosing Weight 58.455, kg, Daily, Start date: 0 11/08/14 9:00:00, Duration: 30 day, Stop date: 12/07/14 9:00:00 Start Date: 11/08/14 Stop Date: 11/08/14 Status: Deleted hydrochlorothiazide-losartan 25 mg-100 mg oral tablet 1 tab, PO, Daily, # 30 tab, 0 Refill(s) Start Date: 11/07/14 Status: Ordered insulin aspart 4 unit, 0.04 mL, Route: SUB-Q, Drug form: SOLN, TID-Before Meals, Dosing Weight 62.727, kg, PRN Blood Glucose Results, Start date: 11/07/14 12:29:00, Duration: 30 day, Stop date: 12/07/14 12:28:00 Notes: Roll in palms of hands gently; Do not shake vigorously. (Same as: NovoLO G)"single patient use only" Stable for 28 days at room temperature.Expires in _ ____ days from Date Start Date: 11/07/14 Stop Date: 11/08/14 Status: Discontinued insulin aspart 3 unit, 0.03 mL, Route: SUB-Q, Drug form: SOLN, TID-Before Meals, Dosing Weight 62.727, kg, PRN Blood Glucose Results, Start date: 11/07/14 12:29:00, Duration: 30 day, Stop date: 12/07/14 12:28:00 Notes: Roll in palms of hands gently; Do not shake vigorously. (Same as: NovoLO G)"single patient use only" Stable for 28 days at room temperature.Expires in _ ____ days from Date Start Date: 11/07/14 Stop Date: 11/08/14 Status: Discontinued insulin aspart 2 unit, 0.02 mL, Route: SUB-Q, Drug form: SOLN, TID-Before Meals, Dosing Weight 62.727, kg, PRN Blood Glucose Results, Start date: 11/07/14 12:29:00, Duration: 30 day, Stop date: 12/07/14 12:28:00 Notes: Roll in palms of hands gently; Do not shake vigorously. (Same as: NovoLO G)"single patient use only" Stable for 28 days at room temperature.Expires in _ ____ days from Date Start Date: 11/07/14 Stop Date: 11/08/14 Status: Discontinued insulin aspart 1 unit, 0.01 mL, Route: SUB-Q, Drug form: SOLN, TID-Before Meals, Dosing Weight 62.727, kg, PRN Blood Glucose Results, Start date: 11/07/14 12:29:00, Duration: 30 day, Stop date: 12/07/14 12:28:00 Notes: Roll in palms of hands gently; Do not shake vigorously. (Same as: NovoLO G)"single patient use only" Stable for 28 days at room temperature.Expires in _ ____ days from Date Start Date: 11/07/14 Stop Date: 11/08/14 Status: Discontinued insulin aspart 5 unit, 0.05 mL, Route: SUB-Q, Drug form: SOLN, TID-Before Meals, Dosing Weight 62.727, kg, PRN Blood Glucose Results, Start date: 11/07/14 12:29:00, Duration: 30 day, Stop date: 12/07/14 12:28:00 Notes: Roll in palms of hands gently; Do not shake vigorously. (Same as: Rhys Warner)"single patient use only" Stable for 28 days at room temperature.Expires in _ ____ days from Date Start Date: 11/07/14 Stop Date: 11/08/14 Status: Discontinued lactobacillus acidophilus 1 cap, Route: PO, Dosing Weight 58.455, kg, Daily, Start date: 11/08/14 9:00:00, Duration: 30 day, Stop date: 12/07/14 9:00:00 Start Date: 11/08/14 Stop Date: 11/08/14 Status: Deleted lactobacillus rhamnosus GG 1 cap, Route: PO, Drug Form: CAP, Daily, Start date: 11/08/14 9:00:00, Duration: 30 day, Stop date: 12/07/14 9:00:00 Notes: Same as Culturelldoris Start Date: 11/08/14 Stop Date: 11/08/14 Status: Discontinued metFORMIN 500 mg, 1 tab, Route: PO, Drug form: TAB, Daily, Dosing Weight 58.455, kg, Start date: 11/08/14 9:00:00, Duration: 30 day, Stop date: 12/07/14 9:00:00 Notes: (Same as: Glucophage) Take with meal Start Date: 11/08/14 Stop Date: 11/08/14 Status: Discontinued metFORMIN 500 mg, PO, Daily, 0 Refill(s) Start Date: 11/07/14 Status: Ordered methimazole 10 mg, 1 tab, Route: PO, Drug form: TAB, Daily, Dosing Weight 58.455, kg, Start date: 11/08/14 9:00:00, Duration: 30 day, Stop date: 12/07/14 9:00:00 Start Date: 11/08/14 Stop Date: 11/08/14 Status: Discontinued ondansetron 4 mg, 2 mL, Route: IVP, Drug form: INJ, Q8H, Dosing Weight 62.727, kg, PRN Nause a & Vomiting, Start date: 11/07/14 12:24:00, Duration: 30 day, Stop date: 12/07/14 12:23:00 Notes: (Same as: Zofran) Start Date: 11/07/14 Stop Date: 11/08/14 Status: Discontinued Protonix 40 mg, Route: IVP, Drug form: INJ, Daily, Dosing Weight 62.727, kg, Patient is N PO, Priority: NOW, Start date: 11/07/14 12:32:00, Duration: 30 day, Stop date: 0 12/07/14 9:00:00 Notes: For IV push reconstitute with 10 ml 0.9% sodium chloride and push over 2 minutes. (Same as: Protonix) Start Date: 11/07/14 Stop Date: 11/08/14 Status: Discontinued Protonix 40 mg oral enteric coated tablet 40 mg=1 tab, PO, Daily, # 30 tab, 0 Refill(s) Start Date: 11/08/14 Status: Ordered Sodium Chloride 0.9% IV 500 mL 500 mL, Rate: 25 ml/hr, Infuse over: 20 hr, Route: IV, Dosing Weight 58.455 kg, Total Volume: 500, Start date: 11/08/14 14:32:00, Duration: 30 day, Stop date: 0 12/08/14 14:31:00 Start Date: 11/08/14 Stop Date: 11/08/14 Status: Discontinued sucralfate 1 g/10 mL oral suspension 1 gm=10 mL, PO, BID, # 600 mL, 0 Refill(s) Start Date: 11/08/14 Stop Date: 12/08/14 Status: Ordered Results ELECTROLYTES Most recent to 1 2 oldest [Reference Range]: Sodium Lvl [135-145 139 mEq/L 136 mEq/L mEq/L] (11/08/14 4:58 AM) (11/07/14 8:57 AM) Potassium Lvl 4.3 mEq/L 3.7 mEq/L [3.5-5.1 mEq/L] (11/08/14 4:58 AM) (11/07/14 8:57 AM) Chloride Lvl [95-109 102 mEq/L 99 mEq/L mEq/L] (11/08/14 4:58 AM) (11/07/14 8:57 AM) CO2 [24-32 mEq/L] 27 mEq/L 28 mEq/L (11/08/14 4:58 AM) (11/07/14 8:57 AM) AGAP [10.0-20.0 14.3 mEq/L 12.7 mEq/L mEq/L] (11/08/14 4:58 AM) (11/07/14 8:57 AM) CHEM PANEL Most recent to 1 2 oldest [Reference Range]: Creatinine Lvl 0.9 mg/dL 0.9 mg/dL [0.5-1.4 mg/dL] (11/08/14 4:58 AM) (11/07/14 8:57 AM) eGFR 61 mL/min/1.73m2 1 61 mL/min/1.73m2 2 *NA* *NA* (11/08/14 4:58 AM) (11/07/14 8:57 AM) BUN [7-22 mg/dL] 19 mg/dL 16 mg/dL (11/08/14 4:58 AM) (11/07/14 8:57 AM) B/C Ratio [6-25] 18 (11/07/14 8:57 AM) Glucose Lvl [70-99 94 mg/dL 3 185 mg/dL 4 mg/dL] (11/08/14 4:58 AM) *HI* (11/07/14 8:57 AM) Total Protein 8.2 g/dL [6.4-8.4 g/dL] (11/07/14 8:57 AM) Albumin Lvl [3.5-5.0 4.2 g/dL g/dL] (11/07/14 8:57 AM) Globulin [2.0-4.0 4.0 g/dL g/dL] (11/07/14 8:57 AM) A/G Ratio [0.7-1.6] 1.0 (11/07/14 8:57 AM) Calcium Lvl 8.6 mg/dL 9.1 mg/dL [8.5-10.5 mg/dL] (11/08/14 4:58 AM) (11/07/14 8:57 AM) Phosphorus [2.5-4.5 3.5 mg/dL mg/dL] (11/08/14 4:58 AM) Magnesium Lvl 2.1 mg/dL [1.8-2.4 mg/dL] (11/08/14 4:58 AM) ALT [0-65 unit/L] 21 unit/L (11/07/14 8:57 AM) AST [0-37 unit/L] 23 unit/L (11/07/14 8:57 AM) Alk Phos [39-136 100 unit/L unit/L] (11/07/14 8:57 AM) Bili Total [0.2-1.3 0.6 mg/dL mg/dL] (11/07/14 8:57 AM) 1Result Comment: The eGFR is calculated using [...] be mul tiplied by the estimated BMI. 2Result Comment: The eGFR is calculated using the [...] be mul tiplied by the estimated BMI. 3Interpretive Data: Adult reference range values reflect the clinical guidelines of the [place] [employer]. 4Interpretive Data: Adult reference range values reflect the clinical guidelines of the [employer]. URINE AND STOOL Most recent to 1 2 oldest [Reference Range]: UA Turbidity [Clear] Clear (11/07/14 8:57 AM) UA Color Ltyellow *NA* (11/07/14 8:57 AM) UA pH [5.0-8.0] 7.0 (11/07/14 8:57 AM) UA Spec Grav 1.009 [<=1.030] (11/07/14 8:57 AM) UA Glucose [Negative Negative mg/dL mg/dL] *NA* (11/07/14 8:57 AM) UA Blood [Negative] Small *ABN* (11/07/14 8:57 AM) UA Ketones [Negative Negative mg/dL mg/dL] *NA* (11/07/14 8:57 AM) UA Protein [Negative Negative mg/dL mg/dL] (11/07/14 8:57 AM) UA Urobilinogen <=1.0 mg/dL [0.1-1.0 mg/dL] *NA* (11/07/14 8:57 AM) UA Bili [Negative] Negative *NA* (11/07/14 8:57 AM) UA Leuk Est Negative [Negative] (11/07/14 8:57 AM) UA Nitrite Negative [Negative] (11/07/14 8:57 AM) UA WBC [0-5 /HPF] <1 /HPF (11/07/14 8:57 AM) UA RBC [0-2 /HPF] 1 /HPF (11/07/14 8:57 AM) UA Bacteria [None Occasional /HPF Seen /HPF] *NA* (11/07/14 8:57 AM) UA Sq Epi [Few /LPF] Occasional /LPF *NA* (11/07/14 8:57 AM) HEMATOLOGY Most recent to 1 2 oldest [Reference Range]: WBC [3.7-10.4 K/CMM] 6.4 K/CMM 7.2 K/CMM (11/08/14 4:58 AM) (11/07/14 8:57 AM) RBC [4.20-5.40 3.85 M/CMM 4.70 M/CMM M/CMM] *LOW* (11/07/14 8:57 AM) (11/08/14 4:58 AM) Hgb [12.0-16.0 g/dL] 12.0 g/dL 14.5 g/dL (11/08/14 4:58 AM) (11/07/14 8:57 AM) Hct [36.0-48.0 %] 35.3 % 43.1 % *LOW* (11/07/14 8:57 AM) (11/08/14 4:58 AM) MCV [80.0-98.0 fL] 91.6 fL 91.7 fL (11/08/14 4:58 AM) (11/07/14 8:57 AM) MCH [27.0-31.0 pg] 31.2 pg 30.9 pg *HI* (11/07/14 8:57 AM) (11/08/14 4:58 AM) MCHC [32.0-36.0 34.0 g/dL 33.7 g/dL g/dL] (11/08/14 4:58 AM) (11/07/14 8:57 AM) RDW [11.5-14.5 %] 13.4 % 13.6 % (11/08/14 4:58 AM) (11/07/14 8:57 AM) Platelet [133-450 283 K/CMM 326 K/CMM K/CMM] (11/08/14 4:58 AM) (11/07/14 8:57 AM) MPV [7.4-10.4 fL] 8.2 fL 7.9 fL (11/08/14 4:58 AM) (11/07/14 8:57 AM) Segs [45.0-75.0 %] 57.3 % 64.2 % (11/08/14 4:58 AM) (11/07/14 8:57 AM) Lymphocytes 26.7 % 24.3 % [20.0-40.0 %] (11/08/14 4:58 AM) (11/07/14 8:57 AM) Monocytes [2.0-12.0 8.7 % 5.4 % %] (11/08/14 4:58 AM) (11/07/14 8:57 AM) Eosinophils [0.0-4.0 6.2 % 5.4 % %] *HI* *HI* (11/08/14 4:58 AM) (11/07/14 8:57 AM) Basophils [0.0-1.0 1.1 % 0.7 % %] *HI* (11/07/14 8:57 AM) (11/08/14 4:58 AM) Segs-Bands # 3.7 K/CMM 4.6 K/CMM [1.5-8.1 K/CMM] (11/08/14 4:58 AM) (11/07/14 8:57 AM) Lymphocytes # 1.7 K/CMM 1.7 K/CMM [1.0-5.5 K/CMM] (11/08/14 4:58 AM) (11/07/14 8:57 AM) Monocytes # [0.0-0.8 0.6 K/CMM 0.4 K/CMM K/CMM] (11/08/14 4:58 AM) (11/07/14 8:57 AM) Eosinophils # 0.4 K/CMM 0.4 K/CMM [0.0-0.5 K/CMM] (11/08/14 4:58 AM) (11/07/14 8:57 AM) Basophils # [0.0-0.2 0.1 K/CMM K/CMM] (11/08/14 4:58 AM) PT [12.0-14.7 12.7 seconds seconds] (11/07/14 8:57 AM) INR [0.85-1.17] 0.95 5 (11/07/14 8:57 AM) PTT [22.9-35.8 29.9 seconds 6 seconds] (11/07/14 8:57 AM) 5Interpretive Data: RECOMMENDED RANGES FOR PROTIME INR: 2.0-3.0 for most medical and surgical thromboembolic states. 2.5-3.5 for artificial heart valves and recurrent embolism. INR SHOULD BE USED ONLY FOR PATIENTS ON STABLE ANTICOAGULANT THERAPY. 6Interpretive Data: Heparin Therapeutic Range: 57 - 92 Seconds Immunizations No data available for this section [...]
--- OUTSIDE RECORDS SUMMARY | 2019-05-14 19:03 | XMS REPORT | Summary of Care ---
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, 4 Constipation(Confirm Active ed) CVA - Resolved Cerebrovascular accident(Confirmed) Diabetes mellitus Active type 2, controlled, with complications(Confir med) Dysphagia5, 6 11/12/14 Active Fundoplication(Confi 06/26/15 Resolved rmed)7 Gastritis(Confirmed) Active GERD Active (gastroesophageal reflux disease)(Confirmed) History of CVA Active (cerebrovascular accident)(Confirmed) Hernia of anterior 10/15/14 Active abdominal wall8, 9 Hyperlipidemia(Confi 10/15/14 Active rmed)10, 11 Hyperthyroidism(Conf 06/10/13 Active irmed)12 Hyperthyroidism(Conf Resolved irmed) Cerumen Active impaction(Confirmed) Impacted [id number] 05/26/14 Resolved Mixed anxiety and 05/08/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 Osteoarthritis(Confi 06/10/13 Active rmed)15 Osteoporosis(Confirm Active ed) Elbow Active pain(Confirmed) PVD (peripheral Active vascular disease)(Confirmed) Peripheral vascular 10/15/14 Active disease(Confirmed)16 , 17 Recurrent urinary Active tract infection(Confirmed) 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 2Data migrated from [employer] on 02/07/15. 3Data migrated from [employer] on 03/18/15. 4Data migrated from [employer] on 02/10/15. 5Data migrated from [employer] on 03/18/15. 6Data migrated from [employer] on 02/10/15. 7done at [facility] 8Data migrated from [employer] on 03/18/15. 9Data migrated from [employer] on 02/10/15. 10Data migrated from [employer] on 03/18/15. 11Data migrated from [employer] on 02/10/15. 12Data migrated from [employer] on 02/07/15. 13Data migrated from [employer] on 03/28/15. 14Data migrated from [employer] on 02/07/15. 15Data migrated from [employer] on 02/07/15. 16Data migrated from [employer] on 03/18/15. 17Data migrated from [employer] on 02/10/15. 18per phone call to referral office 19Data migrated from [employer] on 03/18/15. 20Data migrated from [employer] on 02/10/15. 21Data migrated from [employer] on 03/18/15. 22Data migrated from [employer] on 02/10/15. Allergies, Adverse Reactions, Alerts Substance Reaction Severity Status sulfa Active sulfa drugs1 Active 1Data migrated from [employer] on 04/09/15. Originally documented as SULFA. Medications No data available for this section Results No data available for this section Immunizations Given and Recorded Vaccine Date Status Refusal Reason Hx influenza vaccine-unspecified1 06/07/12 Given influenza virus vaccine, inactivated 06/11/16 Recorded influenza virus vaccine, inactivated 06/26/15 Given influenza virus vaccine, inactivated2 05/26/14 Given influenza virus vaccine, inactivated3 06/10/13 Given pneumococcal 23-valent vaccine4 10/15/14 Given 1Result Comment: historical. Migrated from OBS ; Data migrated from [employer] on 10/13/2015. 2Result Comment: fluzone high dose [[id number]]. Migrated from OBS ; Data migrated from [employer] on 10/13/2015. 3Result Comment: fluzone (>3 yrs.) [[id number]]. Migrated from OBS ; Data migrated from [employer] on 10/13/2015. 4Result Comment: pneumovax. Migrated from OBS ; Data migrated from [employer] on 10/14/2015. Procedures Procedure Date Related Diagnosis Body Site Bone density scan1 04/18/17 Examining eye2 04/22/16 Fundoplication 08/2015 Endoscopy3 02/2015 Mammogram 10/2013 Bypass4 02/2013 Cholecystectomy 1980 Hysterectomy 1979 section 1Osteoporosis of the left femoral neck. 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 Alcohol Past Smoking Status Former smoker; Type: Cigarettes; Number of years: 24; Started at age: 22.0; Stopped at age: 46; Previous treatment: None; Exposure to Tobacco Smoke None; Cigarette Smoking Last 365 Days No; Reg Smoking Cessation Counseling No Assessment and Plan No data available for this section
--- OUTSIDE RECORDS SUMMARY | 2019-05-14 19:03 | XMS REPORT | Summary of Care ---
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(Confirmed )2, 3 Diabetes mellitus Active type 2, controlled, with complications(Confir med) Pedal Active edema(Confirmed) Fundoplication(Confi 06/26/15 - 06/12/17 Resolved rmed)4 GERD Active (gastroesophageal reflux disease)(Confirmed) History of CVA Active (cerebrovascular accident)(Confirmed) Hernia of anterior 10/15/14 Active abdominal wall(Confirmed)5, 6 Hyperlipidemia(Confi 10/15/14 Active rmed)7, 8 Hyperthyroidism(Conf 06/10/13 Active irmed)9 Mixed anxiety and 05/08/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 disorder(Confirmed)1 0 Osteoarthritis(Confi 06/10/13 Active rmed)11 Osteoporosis(Confirm Active ed) Peripheral vascular 10/15/14 Active disease(Confirmed)12 , 13 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 2Data migrated from [employer] on 03/18/15. 3Data migrated from [employer] on 02/10/15. 4done at [facility] 5Data migrated from [employer] on 03/18/15. 6Data migrated from [employer] on 02/10/15. 7Data migrated from [employer] on 03/18/15. 8Data migrated from [employer] on 02/10/15. 9Data migrated from [employer] on 02/07/15. 10Data migrated from [employer] on 02/07/15. 11Data migrated from [employer] on 02/07/15. 12Data migrated from [employer] on 03/18/15. 13Data migrated from [employer] on 02/10/15. 14per phone call to referral office 15Data migrated from [employer] on 03/18/15. 16Data migrated from [employer] on 02/10/15. 17Data migrated from [employer] on 03/18/15. 18Data migrated from [employer] on 02/10/15. Allergies, Adverse Reactions, Alerts Substance Reaction Severity Status sulfa Active Macrobid1 Active 1body rash Medications tramadol 50 mg oral tablet 50 mg=1 tab, PO, Q8H, PRN Pain, X 20 day, # 60 tab, 0 Refill(s) Start Date: 04/12/19 Stop Date: 05/02/19 Status: Ordered Results No data available for this section Immunizations Given and Recorded Vaccine Date Status Refusal Reason influenza virus vaccine, inactivated1 06/12/18 Given influenza virus vaccine, inactivated2 06/22/17 Given influenza virus vaccine, inactivated 06/11/16 Recorded influenza virus vaccine, inactivated 06/26/15 Given influenza virus vaccine, inactivated3 05/26/14 Given influenza virus vaccine, inactivated4 06/10/13 Given pneumococcal 23-valent vaccine5 10/15/14 Given Hx influenza vaccine-unspecified6 06/07/12 Given 1Result Comment: Patient waited in room ten mins no allergic reaction. 2Result Comment: PATIENT WAITED IN ROOM FOR TEN MINS, NO ALLERGIC REACTION. 3Result Comment: fluzone high dose [[id number]]. Migrated from OBS ; Data migrated from [employer] on 10/13/2015. 4Result Comment: fluzone (>3 yrs.) [[id number]]. Migrated from OBS ; Data migrated from [employer] on 10/13/2015. 5Result Comment: pneumovax. Migrated from OBS ; Data migrated from [employer] on 10/14/2015. 6Result Comment: historical. Migrated from OBS ; Data migrated from [employer] on 10/13/2015. Procedures Procedure Date Related Diagnosis Body Site Status Diabetic retinopathy screening1 12/28/17 Completed Endoscopy2 10/03/17 Completed Bone density scan3 04/18/17 Completed Fundoplication 08/2015 Completed Mammogram 10/2013 Completed Bypass4 02/2013 Completed Cholecystectomy 1979 Completed Hysterectomy 1979 Completed section Completed 1Dr Guanaco 2Hiatus Hernia, gastritis Dr Mario 3Osteoporosis of the left femoral neck. 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 Alcohol Past Smoking Status Former smoker; Type: Cigarettes; Previous treatment: None; Exposure to Tobacco Smoke None; Cigarette Smoking Last 365 Days No; Reg Smoking Cessation Counseling No; Number of years: 24; Started at age: 22.0; Stopped at age: 46; entered on: 03/21/19 Assessment and Plan No data available for this section
--- OUTSIDE RECORDS SUMMARY | 2019-05-14 19:03 | XMS REPORT | Summary of Care ---
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 4done at [facility] 5Data migrated from [employer] on [...] ALLERGIC REACTION. 3Result Comment: fluzone high dose [[id number]]. Migrated from OBS ; Data migrated from [employer] on 10/13/2015. 4Result Comment: fluzone (>3 yrs.) [[id number]]. Migrated from OBS ; Data migrated from [employer] on 10/13/2015. 5Result Comment: pneumovax. Migrated from OBS ; Data migrated from [employer] on 10/14/2015. 6Result Comment: historical. Migrated from OBS ; Data migrated from [employer] on 10/13/2015. Procedures Procedure Date Related Diagnosis [...] Type Response Employment/School Status: Retired. 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 Alcohol Past Smoking Status Former smoker; Type: Cigarettes; Previous treatment: None; Exposure to Tobacco Smoke None; Cigarette Smoking Last 365 Days No; Reg Smoking Cessation Counseling No; Number of years: 24; Started at age: 22.0; Stopped at age: 46; entered on: 01/03/19 Assessment and Plan No data available for this section
--- OUTSIDE RECORDS SUMMARY | 2019-05-14 19:03 | XMS REPORT | Summary of Care ---
Author Author [facility] Organization [facility] Address Unknown Phone Unavailable Encounter HQ Abigail(FIN) [id number] Date(s): 01/03/19 - 01/03/19 [facility] [address] [facility] [address] [place] [address]- Discharge Disposition: Home or Self Care Attending Physician: Carolyne Hogan MD Vital Signs Most recent to 1 oldest [Reference Range]: Height 160.02 cm (01/03/19 10:24 AM) Weight 47.273 kg (01/03/19 10:24 AM) Body Mass Index 18.46 m2 (01/03/19 10:24 AM) Problem List Condition Effective Dates Status [...] Active deficiency(Confirmed )17, 18 1Data migrated from [facility] on 02/07/15. 2Data migrated from [employer] on 03/18/15. 3Data migrated from [employer] on 02/10/15. 4done at [facility] 5Data migrated from [employer] on [...] on 04/09/15. Originally documented as SULFA. Medications ciprofloxacin 500 mg oral tablet 500 mg=1 tab, PO, Q12H, for UTI, X 3 day, # 6 tab, 0 Refill(s), Pharmacy: [id number] Start Date: 01/03/19 Stop Date: 01/06/19 Status: Ordered Results No data available for [...] ALLERGIC REACTION. 3Result Comment: fluzone high dose [[id number]]. Migrated from OBS ; Data migrated from [employer] on 10/13/2015. 4Result Comment: fluzone (>3 yrs.) [[id number]]. Migrated from OBS ; Data migrated from [...] Type Response Employment/School Status: Retired. 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 Alcohol Past Smoking Status Former smoker; Type: Cigarettes; Previous treatment: None; Exposure to Tobacco Smoke None; Cigarette Smoking Last 365 Days No; Reg Smoking Cessation Counseling No; Number of years: 24; Started at age: 22.0; Stopped at age: 46; entered on: 01/03/19 Assessment and Plan No data available for this section
--- OUTSIDE RECORDS SUMMARY | 2019-05-14 19:03 | XMS REPORT | Summary of Care ---
Author Author [facility] Organization [facility] Address Unknown Phone Unavailable Care Team Providers Care Back Hoe Operator Name Role Phone William Mittal PCP Encounter HQ Abigail(FIN) [id number] Date(s): 07/02/15 - 07/02/15 [facility] [address] [place] [address]- Discharge Diagnosis: GERD (gastroesophageal reflux disease) Discharge Disposition: Home Attending Physician: Corey Velasquez MD Vital Signs Most recent to 1 2 oldest [Reference Range]: Height 157.48 cm (07/02/15 12:28 PM) Temperature Oral 97.8 DegF 98.3 DegF [96.4-99.1 DegF] (07/02/15 2:49 PM) (07/02/15 12:28 PM) Blood Pressure 160/71 mmHg 126/66 mmHg [90-140/60-90 mmHg] *HI* (07/02/15 12:28 PM) (07/02/15 2:49 PM) Respiratory Rate 16 BRMIN 18 BRMIN [14-20 BRMIN] (07/02/15 2:49 PM) (07/02/15 12:28 PM) Peripheral Pulse 69 bpm 66 bpm Rate [60-100 bpm] (07/02/15 2:49 PM) (07/02/15 12:28 PM) Weight 44.545 kg (07/02/15 12:28 PM) Body Mass Index 17.96 m2 (07/02/15 12:28 PM) Problem List Condition Effective Dates Status Health Status Informant Acute gastritis1 Resolved Benign essential 06/10/13 Active hypertension2 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, 4 CVA - Resolved Cerebrovascular accident(Confirmed) Diabetes mellitus Active type 2, controlled, with complications(Confir med) Dysphagia5, 6 11/12/14 Active Gastritis(Confirmed) Active Hernia of anterior 10/15/14 Active abdominal wall7, 8 Hyperlipidemia9, 10 10/15/14 Active Ouwgsnwqbwceprz07 06/10/13 Active Hyperthyroidism(Conf Resolved irmed) Svvxljxrcpsr93, 13 11/27/14 Active Impacted 05/26/14 Resolved Mixed anxiety and 05/08/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 jeccniqq21 Nrvxwhhtwwngdv12 06/10/13 Active Zlxlnftpgi02, 18 10/15/14 Active Peripheral vascular 10/15/14 Active ucfsjzt84, 20 Unsteady gait21, 22 10/15/14 Active Vitamin D 10/15/14 Active ymqtuxzehz22, 24 1Data migrated from [employer] on [...] [employer] on 03/18/15. 24Data migrated from [employer] on 02/10/15. Allergies, Adverse Reactions, Alerts Substance Reaction Severity Status sulfa Active sulfa drugs1 Active 1Data migrated from [employer] on 04/09/15. Originally documented as SULFA. Medications famotidine 20 mg, Route: IVP, ONCE, Dosing Weight 44.545, kg, Priority: STAT, Start date: 1 12:52:00, Stop date: 07/02/15 12:52:00 Start Date: 07/02/15 Stop Date: 07/02/15 Status: Completed famotidine 40 mg/5 mL oral liquid 40 mg=5 ml, PO, BID, # 60 ml, 0 Refill(s), Pharmacy: [facility]/pharmacy #[id number] Start Date: 07/02/15 Status: Ordered GI cocktail 30 mL, Route: PO, Dosing Weight 44.545, kg, ONCE, STAT, Start date: 07/02/15 12: 52:00, Stop date: 07/02/15 12:52:00 Start Date: 07/02/15 Stop Date: 07/02/15 Status: Completed pantoprazole 40 mg, Route: IVP, ONCE, Dosing Weight 44.545, kg, For IV push reconstitute with 10 ml 0.9% sodium chloride and push over at least 3 minutes, Priority: STAT, St art date: 07/02/15 12:52:00, Stop date: 07/02/15 12:52:00 Start Date: 07/02/15 Stop Date: 07/02/15 Status: Completed Saline Flush 0.9% 10 mL, Route: IVP, Drug Form: INJ, Dosing Weight 44.545, kg, PRN, PRN Line Flush , Start date: 07/02/15 12:52:00, Duration: 30 day, Stop date: 08/01/15 11:51:00 Notes: (Same as: BD Posiflush) Start Date: 07/02/15 Stop Date: 07/02/15 Status: Discontinued sucralfate 1 g/10 mL oral suspension 1 gm=10 ml, PO, Before Meals & Bedtime, # 200 ml, 1 Refill(s), Pharmacy: [facility]/pharmacy #[id number] Start Date: 07/02/15 Status: Ordered Zofran 4 mg/5 mL oral solution 4 mg=5 mL, PO, BID, PRN Nausea, X 14 day, # 140 mL, 0 Refill(s), [facility]acy: [id number] Start Date: 07/02/15 Stop Date: 07/16/15 Status: Ordered Results ELECTROLYTES Most recent to 1 oldest [Reference Range]: Sodium Lvl [135-145 140 mEq/L mEq/L] (07/02/15 1:07 PM) Potassium Lvl 3.9 mEq/L [3.5-5.1 mEq/L] (07/02/15 1:07 PM) Chloride Lvl [95-109 104 mEq/L mEq/L] (07/02/15 1:07 PM) CO2 [24-32 mEq/L] 29 mEq/L (07/02/15 1:07 PM) AGAP [10.0-20.0 10.9 mEq/L mEq/L] (07/02/15 1:07 PM) CHEM PANEL Most recent to 1 oldest [Reference Range]: Creatinine Lvl 0.7 mg/dL [0.5-1.4 mg/dL] (07/02/15 1:07 PM) eGFR 82 mL/min/1.73m2 1 *NA* (07/02/15 1:07 PM) BUN [7-22 mg/dL] 12 mg/dL (07/02/15 1:07 PM) B/C Ratio [6-25] 17 (07/02/15 1:07 PM) Glucose Lvl [70-99 124 mg/dL mg/dL] *HI* (07/02/15 1:07 PM) Total Protein 7.0 g/dL [6.4-8.4 g/dL] (07/02/15 1:07 PM) Albumin Lvl [3.5-5.0 3.7 g/dL g/dL] (07/02/15 1:07 PM) Globulin [2.0-4.0 3.3 g/dL g/dL] (07/02/15 1:07 PM) A/G Ratio [0.7-1.6] 1.1 (07/02/15 1:07 PM) Calcium Lvl 9.1 mg/dL [8.5-10.5 mg/dL] (07/02/15 1:07 PM) ALT [0-65 unit/L] 28 unit/L (07/02/15 1:07 PM) AST [0-37 unit/L] 24 unit/L (07/02/15 1:07 PM) Alk Phos [39-136 77 unit/L unit/L] (07/02/15 1:07 PM) Bili Total [0.2-1.3 0.7 mg/dL mg/dL] (07/02/15 1:07 PM) Lipase Lvl [73-393 124 unit/L unit/L] (07/02/15 1:07 PM) 1Result Comment: The eGFR is calculated [...] 1 oldest [Reference Range]: WBC [3.7-10.4 K/CMM] 6.7 K/CMM (07/02/15 1:07 PM) RBC [4.20-5.40 4.27 M/CMM M/CMM] (07/02/15 1:07 PM) Hgb [12.0-16.0 g/dL] 12.8 g/dL (07/02/15 1:07 PM) Hct [36.0-48.0 %] 39.1 % (07/02/15 1:07 PM) MCV [80.0-98.0 fL] 91.5 fL (07/02/15 1:07 PM) MCH [27.0-31.0 pg] 29.9 pg (07/02/15 1:07 PM) MCHC [32.0-36.0 32.6 g/dL g/dL] (07/02/15 1:07 PM) RDW [11.5-14.5 %] 13.8 % (07/02/15 1:07 PM) Platelet [133-450 199 K/CMM K/CMM] (07/02/15 1:07 PM) MPV [7.4-10.4 fL] 8.6 fL (07/02/15 1:07 PM) Segs [45.0-75.0 %] 76.0 % *HI* (07/02/15 1:07 PM) Lymphocytes 16.0 % [20.0-40.0 %] *LOW* (07/02/15 1:07 PM) Monocytes [2.0-12.0 5.5 % %] (07/02/15 1:07 PM) Eosinophils [0.0-4.0 1.9 % %] (07/02/15 1:07 PM) Basophils [0.0-1.0 0.6 % %] (07/02/15 1:07 PM) Segs-Bands # 5.1 K/CMM [1.5-8.1 K/CMM] (07/02/15 1:07 PM) Lymphocytes # 1.1 K/CMM [1.0-5.5 K/CMM] (07/02/15 1:07 PM) Monocytes # [0.0-0.8 0.4 K/CMM K/CMM] (07/02/15 1:07 PM) Eosinophils # 0.1 K/CMM [0.0-0.5 K/CMM] (07/02/15 1:07 PM) Immunizations Vaccine Date Refusal Reason influenza virus vaccine, inactivated 06/26/15 Procedures Procedure Date Related Diagnosis Body Site Endoscopy1 02/2015 Examining eye 02/2015 Bone density scan2 11/26/14 Diabetic foot examination 10/2014 Mammogram 10/2013 Bypass3 02/2013 Cholecystectomy 1980 Hysterectomy 1980 section 1Hiatus Hernia, severe gastritis 2Osteopenia left [...]
--- OUTSIDE RECORDS SUMMARY | 2019-05-14 19:03 | XMS REPORT | Summary of Care ---
Author Author [facility] Organization [facility] Address Unknown Phone Unavailable Encounter ALICIA Hayes(WAGNER) [id number] Date(s): 04/22/19 - 04/22/19 [facility] [address] [place] [address]- [phone] Discharge Disposition: Home or Self Care Attending Physician: Estefani Jackson MD Referring Physician: Estefani Jackson MD Vital Signs No data available for [...] from [employer] on 02/10/15. 4done at [facility] 5Data migrated from [employer] on 03/18/15. [...] sulfa Active Macrobid1 Active 1body rash Medications No data available for this section [...] ALLERGIC REACTION. 3Result Comment: fluzone high dose [[id number]]. Migrated from OBS ; Data migrated from [employer] on 10/13/2015. 4Result Comment: fluzone (>3 yrs.) [[id number]]. Migrated from OBS ; Data migrated from [employer] on 10/13/2015. 5Result Comment: pneumovax. Migrated from OBS ; Data migrated from [employer] on 10/14/2015. 6Result Comment: historical. Migrated from [facility] ; Data migrated from [employer] on 10/13/2015. Procedures Procedure Date Related Diagnosis Body Site Status Bone density scan1, 2 04/22/19 Completed Diabetic retinopathy screening3 12/28/17 Completed Endoscopy4 10/03/17 Completed Fundoplication 08/2015 Completed Mammogram 10/2013 Completed Bypass5 02/2013 Completed Cholecystectomy 1979 Completed Hysterectomy 1979 Completed section Completed 1Osteoporosis of the left femoral neck. 2IMPRESSION: 1. Osteopenia of the left femoral neck. 2. Osteopenia of the total left hip. 3. Osteopenia of the left forearm. 3Dr Guanaco 4Hiatus Hernia, gastritis Dr Mario 5Bypass of the right leg Social History Social History Type Response Alcohol Past Employment/School Status: Retired. 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 Smoking Status Former smoker; Type: Cigarettes; Previous treatment: None; Exposure to Tobacco Smoke None; Cigarette Smoking Last 365 Days No; Reg Smoking Cessation Counseling No; Number of years: 24; Started at age: 22.0; Stopped at age: 46; entered on: 04/16/19 Assessment and Plan No data available for this section
--- OUTSIDE RECORDS SUMMARY | 2019-05-14 19:03 | XMS REPORT | Summary of Care ---
Author Author [facility] Organization [facility] Address Unknown Phone Unavailable Encounter HQ Abigail(FIN) [id number] Date(s): 04/15/19 - 04/16/19 [facility] [address] [address]- Vital Signs No data available for this [...] from [employer] on 02/10/15. 4done at [facility] 5Data migrated from [employer] on 7/8/15. 6Data migrated from [employer] on 02/10/15. [...] ALLERGIC REACTION. 3Result Comment: fluzone high dose [[id number]]. Migrated from OBS ; Data migrated from [employer] on 10/13/2015. 4Result Comment: fluzone (>3 yrs.) [[id number]]. Migrated from OBS ; Data migrated from [employer] on 10/13/2015. 5Result Comment: pneumovax. Migrated from OBS ; Data migrated from [employer] on 10/14/2015. 6Result Comment: historical. Migrated from OBS ; Data migrated from [employer] on 10/13/2015. Procedures Procedure Date Related Diagnosis Body Site Status Diabetic retinopathy screening1 4/19/18 Completed Endoscopy2 10/03/17 Completed Bone density scan3 04/18/17 Completed Fundoplication 08/2015 Completed Mammogram 10/2013 Completed Bypass4 02/2013 Completed Cholecystectomy 1979 Completed Hysterectomy 1979 Completed section Completed 1Dr Guanaco 2Hiatus Hernia, gastritis Dr Mario 3Osteoporosis of the left femoral neck. 4Bypass of the right leg Social History Social History Type Response Employment/School Status: Retired. 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 Alcohol Past Smoking Status Former smoker; Type: Cigarettes; Previous treatment: None; Exposure to Tobacco Smoke None; Cigarette Smoking Last 365 Days No; Reg Smoking Cessation Counseling No; Number of years: 24; Started at age: 22.0; Stopped at age: 46; entered on: 04/16/19 Assessment and Plan No data available for this section
--- OUTSIDE RECORDS SUMMARY | 2019-05-14 19:03 | XMS REPORT | Summary of Care ---
Author Author [facility] Organization [facility] Address Unknown Phone Unavailable Encounter HQ Abigail(FIN) [id number] Date(s): 01/03/19 - 01/03/19 [facility] [address] [facility] [address] [place] [address]- Discharge Disposition: Home or Self Care Attending [...] Active deficiency(Confirmed )17, 18 1Data migrated from [facility] on 02/07/15. 2Data migrated from [employer] on 03/18/15. 3Data migrated from [employer] on 02/10/15. 4done at [facility] 5Data migrated from [employer] on [...] ALLERGIC REACTION. 3Result Comment: fluzone high dose [[id number]]. Migrated from OBS ; Data migrated from [employer] on 10/13/2015. 4Result Comment: fluzone (>3 yrs.) [[id number]]. Migrated from OBS ; Data migrated from [...] Type Response Employment/School Status: Retired. 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 Alcohol Past Smoking Status Former smoker; Type: Cigarettes; Previous treatment: None; Exposure to Tobacco Smoke None; Cigarette Smoking Last 365 Days No; Reg Smoking Cessation Counseling No; Number of years: 24; Started at age: 22.0; Stopped at age: 46; entered on: 01/03/19 Assessment and Plan No data available for this section
--- OUTSIDE RECORDS SUMMARY | 2019-05-14 19:03 | XMS REPORT | Summary of Care ---
Author Author [facility] Organization [facility] Address Unknown Phone Unavailable Care Team Providers Care Travel Ot Name Role Phone William Mittal PCP Encounter HQ Abigail(FIN) [id number] Date(s): 07/02/15 - 07/02/15 [facility] [address] [place] [address]- [phone] Discharge Diagnosis: GERD (gastroesophageal reflux disease) Discharge [...] abdominal wall7, 8 Hyperlipidemia9, 10 10/15/14 Active Wcreaykjrulfmka12 06/10/13 Active Hyperthyroidism(Conf Resolved irmed) Kjhyhpnkfejo27, 13 11/27/14 Active Impacted xpzqtul84 05/26/14 Resolved Mixed anxiety and 05/08/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 wlzypbrg08 Tuvkztsflrnmxm02 06/10/13 Active Rtxdcsrtmn84, 18 10/15/14 Active Peripheral vascular 10/15/14 Active , 20 Unsteady gait21, 22 10/15/14 Active Vitamin D 10/15/14 Active lwptsimlsd30, 24 1Data migrated from [employer] on [...] [employer] on 03/18/15. 24Data migrated from [employer] on 02/10/15. Allergies, Adverse Reactions, Alerts Substance Reaction Severity Status sulfa Active sulfa drugs1 Active 1Data migrated from [employer] on 04/09/15. Originally documented as SULFA. Medications famotidine 20 mg, Route: IVP, ONCE, Dosing Weight 44.545, kg, Priority: STAT, Start date: 1 12:52:00, Stop date: 07/02/15 12:52:00 Start Date: 07/02/15 Stop Date: 07/02/15 Status: Completed famotidine 40 mg/5 mL oral liquid 40 mg=5 ml, PO, BID, # 60 ml, 0 Refill(s), Pharmacy: [facility]/pharmacy #[id number] Start Date: 07/02/15 Status: Ordered GI cocktail [...] Bedtime, # 200 ml, 1 Refill(s), Pharmacy: [facility]/pharmacy #[id number] Start Date: 07/02/15 Status: Ordered Zofran 4 [...]
--- OUTSIDE RECORDS SUMMARY | 2019-05-14 19:04 | XMS REPORT | Summary of Care ---
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 4done at [facility] 5Data migrated from [employer] on [...] Status Refusal Reason influenza virus vaccine, inactivated1 06/22/17 Given influenza virus vaccine, inactivated 06/11/16 Recorded influenza virus vaccine, inactivated 06/26/15 Given influenza virus vaccine, inactivated2 05/26/14 Given influenza virus vaccine, inactivated3 06/10/13 Given pneumococcal 23-valent vaccine4 10/15/14 Given Hx influenza vaccine-unspecified5 06/07/12 Given 1Result Comment: PATIENT WAITED IN ROOM FOR TEN MINS, NO ALLERGIC REACTION. 2Result Comment: fluzone high dose [xfr785]. Migrated from OBS ; Data migrated from [employer] on 10/13/2015. 3Result Comment: fluzone (>3 yrs.) [[id number]]. Migrated from OBS ; Data migrated from [employer] on 10/13/2015. 4Result Comment: pneumovax. Migrated from OBS ; Data migrated from [employer] on 10/14/2015. 5Result Comment: historical. Migrated from OBS ; Data [...] Type Response Employment/School Status: Retired. 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 Alcohol Past Smoking Status Former smoker; Type: Cigarettes; Previous treatment: None; Exposure to Tobacco Smoke None; Cigarette Smoking Last 365 Days No; Reg Smoking Cessation Counseling No; Number of years: 24; Started at age: 22.0; Stopped at age: 46; entered on: 01/11/18 Assessment and Plan No data available for this section
--- OUTSIDE RECORDS SUMMARY | 2019-05-14 19:04 | XMS REPORT | Summary of Care ---
Author Author [facility] Organization [facility] Address Unknown Phone Unavailable Encounter HQ Abigail(FIN) [id number] Date(s): 12/07/18 - 12/08/18 [facility] [address] [facility] [address] [place] [address]- Vital Signs No data available for this [...] from [employer] on 02/10/15. 4done at [facility] 5Data migrated from [employer] [...] ALLERGIC REACTION. 3Result Comment: fluzone high dose [[id number]]. Migrated from OBS ; Data migrated from [employer] on 10/13/2015. 4Result Comment: fluzone (>3 yrs.) [[id number]]. Migrated from OBS ; Data migrated from [...] Type Response Employment/School Status: Retired. 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 Alcohol Past Smoking Status Former smoker; Type: Cigarettes; Previous treatment: None; Exposure to Tobacco Smoke None; Cigarette Smoking Last 365 Days No; Reg Smoking Cessation Counseling No; Number of years: 24; Started at age: 22.0; Stopped at age: 46; entered on: 10/15/18 Assessment and Plan No data available for this section
--- OUTSIDE RECORDS SUMMARY | 2019-05-14 19:04 | XMS REPORT | Summary of Care ---
Author Author [facility] Care [facility] Organization [facility] Address Unknown Phone Unavailable Encounter HQ Rowena_yuly(FIN) [id number] Date(s): 10/04/17 - 10/05/17 [facility] [address] [facility], [address] [place] [address]- [phone] Vital Signs No data available for this [...] from [employer] on 02/10/15. 4done at [facility] 5Data migrated from [employer] on [...] ALLERGIC REACTION. 2Result Comment: fluzone high dose [[id number]]. Migrated from OBS ; Data migrated from [employer] on 10/13/2015. 3Result Comment: fluzone (>3 yrs.) [[id number]]. Migrated from OBS ; Data migrated from [...] Type Response Employment/School Status: Retired. 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 Alcohol Past Smoking Status Former smoker; Type: Cigarettes; Previous treatment: None; Exposure to Tobacco Smoke None; Cigarette Smoking Last 365 Days No; Reg Smoking Cessation Counseling No; Number of years: 24; Started at age: 22.0; Stopped at age: 46; entered on: 01/11/18 Assessment and Plan No data available for this section
--- OUTSIDE RECORDS SUMMARY | 2019-05-14 19:04 | XMS REPORT | Summary of Care ---
Author Author [facility] Organization [facility] Address Unknown Phone Unavailable Encounter HQ Abigail(FIN) [id number] Date(s): 08/31/18 - 09/01/18 [facility] [address] [facility] [address] [place] [address]- Vital Signs No data available for this [...] ALLERGIC REACTION. 3Result Comment: fluzone high dose [[id number]]. Migrated from OBS ; Data migrated from [employer] on 10/13/2015. 4Result Comment: fluzone (>3 yrs.) [[id number]]. Migrated from OBS ; Data migrated from [...] Type Response Employment/School Status: Retired. 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 Alcohol Past Smoking Status Former smoker; Type: Cigarettes; Previous treatment: None; Exposure to Tobacco Smoke None; Cigarette Smoking Last 365 Days No; Reg Smoking Cessation Counseling No; Number of years: 24; Started at age: 22.0; Stopped at age: 46; entered on: 03/21/19 Assessment and Plan No data available for this section
--- OUTSIDE RECORDS SUMMARY | 2019-05-14 19:04 | XMS REPORT | Summary of Care ---
Author Author [facility] Organization [facility] Address Unknown Phone Unavailable Encounter HQ Abigail(FIN) [id number] Date(s): 03/21/19 - 03/21/19 [facility] [address] [facility] [address] [place] [address]- Discharge Disposition: Home or Self Care Attending Physician: Carolyne Hogan MD Vital Signs Most recent to 1 oldest [Reference Range]: Height 160.02 cm (03/21/19 10:48 AM) Temperature Oral 96.7 DegF [96.4-99.1 DegF] (03/21/19 10:48 AM) Blood Pressure 124/62 mmHg [90-140/60-90 mmHg] (03/21/19 10:48 AM) Respiratory Rate 16 BRMIN [14-20 BRMIN] (03/21/19 10:48 AM) Peripheral Pulse 64 bpm Rate [60-100 bpm] (03/21/19 10:48 AM) Weight 47.273 kg (03/21/19 10:48 AM) Body Mass Index 18.46 m2 (03/21/19 10:48 AM) Problem List Condition Effective Dates Status [...] from [employer] on 02/10/15. 4done at [facility] 5Data migrated from [employer] [...] sulfa Active Macrobid1 Active 1body rash Medications alendronate 70 mg oral tablet 70 mg=1 tab, PO, Q7D, with 6 to 8 ounces plain water, at least 30 minutes before first food, beverage, or medication of the day, # 12 tab, 3 Refill(s), Pharmacy: [facility]/pharmacy #[id number] Start Date: 03/21/19 Status: Ordered amLODIPine 5 mg oral tablet 5 mg=1 tab, PO, Daily, # 90 tab, 1 Refill(s), Pharmacy: [facility]/pharmacy #[id number] Start Date: 03/21/19 Status: Ordered ergocalciferol 50,000 intl units oral capsule 50,000 IntlUnit=1 cap, PO, qWeek, # 12 cap, 1 Refill(s), [id number] Start Date: 03/21/19 Stop Date: 09/05/19 Status: Ordered esomeprazole 40 mg oral delayed release capsule 40 mg=1 cap, PO, Daily, # 90 cap, 1 Refill(s), [id number] Start Date: 03/21/19 Status: Ordered losartan 100 mg oral tablet =1 tab, PO, Daily, # 90 tab, 1 Refill(s), [id number] Start Date: 03/21/19 Status: Ordered Results No data available for [...] ALLERGIC REACTION. 3Result Comment: fluzone high dose [[id number]]. Migrated from OBS ; Data migrated from [employer] on 10/13/2015. 4Result Comment: fluzone (>3 yrs.) [[id number]]. Migrated from OBS ; Data migrated from [employer] on 10/13/2015. 5Result Comment: pneumovax. Migrated from OBS ; Data migrated from [employer] on 10/14/2015. 6Result Comment: historical. Migrated from OBS ; Data migrated from [employer] on 10/13/2015. 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 Alcohol Past Smoking Status Former smoker; Type: Cigarettes; Previous treatment: None; Exposure to Tobacco Smoke None; Cigarette Smoking Last 365 Days No; Reg Smoking Cessation Counseling No; Number of years: 24; Started at age: 22.0; Stopped at age: 46; entered on: 03/21/19 Assessment and Plan No data available for this section
--- OUTSIDE RECORDS SUMMARY | 2019-05-14 19:04 | XMS REPORT | Summary of Care ---
Author Author [facility] Organization [facility] Address Unknown Phone Unavailable Encounter HQ Abigail(FIN) [id number] Date(s): 01/09/19 - 01/10/19 [facility] [address] [address]- Vital Signs No data available for this [...] from [employer] on 02/10/15. 4done at [facility] 5Data migrated from [employer] on [...] ALLERGIC REACTION. 3Result Comment: fluzone high dose [heu360]. Migrated from OBS ; Data migrated from [employer] on 10/13/2015. 4Result Comment: fluzone (>3 yrs.) [[id number]]. Migrated from OBS ; Data migrated from [...] Type Response Employment/School Status: Retired. 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 Alcohol Past Smoking Status Former smoker; Type: Cigarettes; Previous treatment: None; Exposure to Tobacco Smoke None; Cigarette Smoking Last 365 Days No; Reg Smoking Cessation Counseling No; Number of years: 24; Started at age: 22.0; Stopped at age: 46; entered on: 01/03/19 Assessment and Plan No data available for this section
--- OUTSIDE RECORDS SUMMARY | 2019-05-14 19:04 | XMS REPORT | Summary of Care ---
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, 3 Diabetes mellitus Active type 2, controlled, with complications(Confir med) Fundoplication(Confi 06/26/15 - 06/12/17 Resolved rmed)4 GERD Active (gastroesophageal reflux disease)(Confirmed) History of CVA Active (cerebrovascular accident)(Confirmed) Hernia of anterior 10/15/14 Active abdominal wall(Confirmed)5, 6 Hyperlipidemia(Confi 10/15/14 Active rmed)7, 8 Hyperthyroidism(Conf 06/10/13 Active irmed)9 Knee pain(Confirmed) Active 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 2Result Comment: fluzone high dose [[id number]]. Migrated from OBS ; Data migrated from [employer] on 10/13/2015. 3Result Comment: fluzone (>3 yrs.) [jex140]. Migrated from OBS ; Data migrated from [employer] on 10/13/2015. 4Result Comment: pneumovax. Migrated from OBS ; Data migrated from [employer] on 10/14/2015. 5Result Comment: historical. Migrated from OBS ; Data migrated from [employer] on 10/13/2015. Procedures Procedure Date Related Diagnosis Body Site Diabetic retinopathy screening1 08/22/17 Bone density scan2 04/18/17 Fundoplication 08/2015 Endoscopy3 02/2015 Mammogram 10/2013 Bypass4 02/2013 Cholecystectomy 1979 Hysterectomy [address] Guanaco 2Osteoporosis of the left femoral neck. 3Hiatus Hernia, severe gastritis 4Bypass of the right leg Social History Social History Type Response Employment/School Status: Retired. 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 Alcohol Past Smoking Status Former smoker; Type: Cigarettes; Previous treatment: None; Exposure to Tobacco Smoke None; Cigarette Smoking Last 365 Days No; Reg Smoking Cessation Counseling No; Number of years: 24; Started at age: 22.0; Stopped at age: 46; Assessment and Plan No data available for this section
--- OUTSIDE RECORDS SUMMARY | 2019-05-14 19:04 | XMS REPORT | Summary of Care ---
Author Author [facility] Organization [facility] Address Unknown Phone Unavailable Encounter HQ Abigail(FIN) [id number] Date(s): 08/14/17 - 08/14/17 [facility] [address] [facility], [address] [place] [address]- [phone] Discharge Disposition: Home or Self Care Attending Physician: Carolyne Hogan MD Vital Signs Most recent to 1 oldest [Reference Range]: Height 157.48 cm (08/14/17 9:47 AM) Temperature Oral 98.2 DegF [96.4-99.1 DegF] (08/14/17 9:47 AM) Blood Pressure 103/60 mmHg [90-140/60-90 mmHg] (08/14/17 9:47 AM) Respiratory Rate 14 BRMIN [14-20 BRMIN] (08/14/17 9:47 AM) Peripheral Pulse 81 bpm Rate [60-100 bpm] (08/14/17 9:47 AM) Weight 78.182 kg (08/14/17 9:47 AM) Body Mass Index 31.53 m2 (08/14/17 9:47 AM) Problem List Condition Effective Dates Status [...] Active Mixed anxiety 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 2Data migrated from [employer] on 03/18/15. 3Data migrated from [employer] on 02/10/15. 4done at [facility] 5Data migrated from [employer] [...] on 04/09/15. Originally documented as SULFA. Medications docusate sodium 100 mg oral capsule 100 mg=1 cap, PO, Daily, PRN Constipation, # 90 cap, 1 Refill(s), Pharmacy: [facility]/ pharmacy #[id number] Start Date: 08/14/17 Stop Date: 02/10/18 Status: Ordered Results No data available for this section Immunizations Given and Recorded Vaccine Date Status Refusal Reason influenza virus vaccine, inactivated1 06/22/17 Given influenza virus vaccine, inactivated 10/1/16 Recorded influenza virus vaccine, inactivated 06/26/15 Given influenza virus vaccine, inactivated2 05/26/14 Given influenza virus vaccine, inactivated3 06/10/13 Given pneumococcal 23-valent vaccine4 10/15/14 Given Hx influenza vaccine-unspecified5 06/07/12 Given 1Result Comment: PATIENT WAITED IN ROOM FOR TEN MINS, NO ALLERGIC REACTION. 2Result Comment: fluzone high dose [njs505]. Migrated from OBS ; Data migrated from [employer] on 10/13/2015. 3Result Comment: fluzone (>3 yrs.) [[id number]]. Migrated from OBS ; Data migrated from [...] Bypass4 02/2013 Cholecystectomy 1979 Hysterectomy 1979 section 1Osteoporosis of the left femoral neck. 2Dr.Luis F Blanc 3Hiatus Hernia, severe gastritis 4Bypass of the right leg Social History Social History Type Response Employment/School Status: Retired. 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 Alcohol Past Smoking Status Former smoker; Type: Cigarettes; Previous treatment: None; Exposure to Tobacco Smoke None; Cigarette Smoking Last 365 Days No; Reg Smoking Cessation Counseling No; Number of years: 24; Started at age: 22.0; Stopped at age: 46; Assessment and Plan No data available for this section
--- OUTSIDE RECORDS SUMMARY | 2019-05-14 19:04 | XMS REPORT | Summary of Care ---
Author Author [facility] Organization [facility] Address Unknown Phone Unavailable Encounter ALICIA Hayes(WAGNER) [id number] Date(s): 10/10/18 - 10/10/18 [facility] [address] [place] [address]- Attending Physician: Carolyne Hogan MD Referring Physician: [...] from [employer] on 02/10/15. 4done at [facility] 5Data migrated from [employer] [...] ALLERGIC REACTION. 3Result Comment: fluzone high dose [ycm343]. Migrated from OBS ; Data migrated from [employer] on 10/13/2015. 4Result Comment: fluzone (>3 yrs.) [[id number]]. Migrated from OBS ; Data migrated from [...] Alcohol Past Employment/School Status: Retired. 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 Smoking Status Former smoker; Type: Cigarettes; Previous treatment: None; Exposure to Tobacco Smoke None; Cigarette Smoking Last 365 Days No; Reg Smoking Cessation Counseling No; Number of years: 24; Started at age: 22.0; Stopped at age: 46; entered on: 04/16/19 Assessment and Plan No data available for this section
--- OUTSIDE RECORDS SUMMARY | 2019-05-14 19:04 | XMS REPORT | Summary of Care ---
Author Author [facility] Organization [facility] Address Unknown Phone Unavailable Encounter HQ Rowena_yuly(FIN) [id number] Date(s): 02/01/18 - 02/02/18 [facility] [address] [facility], [address] [place] [address]- [phone] Vital Signs No data available for this [...] from [employer] on 02/10/15. 4done at [facility] 5Data migrated from [employer] [...] ALLERGIC REACTION. 2Result Comment: fluzone high dose [gaz150]. Migrated from OBS ; Data migrated from [employer] on 10/13/2015. 3Result Comment: fluzone (>3 yrs.) [[id number]]. Migrated from OBS ; Data migrated from [...] Type Response Employment/School Status: Retired. 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 Alcohol Past Smoking Status Former smoker; Type: Cigarettes; Previous treatment: None; Exposure to Tobacco Smoke None; Cigarette Smoking Last 365 Days No; Reg Smoking Cessation Counseling No; Number of years: 24; Started at age: 22.0; Stopped at age: 46; entered on: 01/16/18 Assessment and Plan No data available for this section
--- OUTSIDE RECORDS SUMMARY | 2019-05-14 19:04 | XMS REPORT | Summary of Care ---
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 2Data migrated from [employer] on 03/18/15. 3Data migrated from [employer] on 02/10/15. 4done at [facility] 5Data migrated from [employer] [...] ALLERGIC REACTION. 2Result Comment: fluzone high dose [pmb798]. Migrated from OBS ; Data migrated from [employer] on 10/13/2015. 3Result Comment: fluzone (>3 yrs.) [kex045]. Migrated from OBS ; Data migrated from [...] Type Response Employment/School Status: Retired. 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 Alcohol Past Smoking Status Former smoker; Type: Cigarettes; Previous treatment: None; Exposure to Tobacco Smoke None; Cigarette Smoking Last 365 Days No; Reg Smoking Cessation Counseling No; Number of years: 24; Started at age: 22.0; Stopped at age: 46; Assessment and Plan No data available for this section
--- OUTSIDE RECORDS SUMMARY | 2019-05-14 19:04 | XMS REPORT | Summary of Care ---
Author Author [facility] Organization [facility] Address Unknown Phone Unavailable Encounter HQ Abigail(FIN) [id number] Date(s): 12/18/17 - 12/19/17 [facility] [address], [address] [place] [address]- [phone] Vital Signs No data available for this [...] Active incontinence)(Confir med) Vitamin D 10/15/14 Active [id number], 18 1Data migrated from [employer] on 02/07/15. 2Data migrated from [employer] on 03/18/15. 3Data migrated from [employer] on 02/10/15. 4done at [facility] 5Data migrated from [employer] on [...] ALLERGIC REACTION. 2Result Comment: fluzone high dose [[id number]]. Migrated from OBS ; Data migrated from [employer] on 10/13/2015. 3Result Comment: fluzone (>3 yrs.) [[id number]]. Migrated from OBS ; Data migrated from [employer] on 10/13/2015. 4Result Comment: pneumovax. Migrated from OBS ; Data migrated from [employer] on 10/14/2015. 5Result Comment: historical. Migrated from OBS ; Data migrated from [employer] on 10/13/2015. Procedures Procedure Date Related Diagnosis Body Site Status Endoscopy1 10/03/17 Completed Diabetic retinopathy screening2 08/22/17 Completed Bone density scan3 04/18/17 Completed Fundoplication 08/2015 Completed Mammogram 10/2013 Completed Bypass4 02/2013 Completed Cholecystectomy 1979 Completed Hysterectomy 1979 Completed section Completed 1Hiatus Hernia, gastritis Dr Mario 2Dr Guanaco 3Osteoporosis of the left femoral neck. 4Bypass of the right leg Social History Social History Type Response Employment/School Status: Retired. 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 Alcohol Past Smoking Status Former smoker; Type: Cigarettes; Previous treatment: None; Exposure to Tobacco Smoke None; Cigarette Smoking Last 365 Days No; Reg Smoking Cessation Counseling No; Number of years: 24; Started at age: 22.0; Stopped at age: 46; entered on: 12/11/17 Assessment and Plan No data available for this section
--- OUTSIDE RECORDS SUMMARY | 2019-05-14 19:04 | XMS REPORT | Summary of Care ---
Author Author [facility] Organization [facility] Address Unknown Phone Unavailable Encounter HQ Abigail(FIN) [id number] Date(s): 01/11/18 - 01/11/18 [facility] [address], [address] [place], [place] [address]- [phone] Discharge Disposition: Home or Self Care Attending Physician: Carolyne Hogan MD Vital Signs Most recent to 1 oldest [Reference Range]: Height 160.02 cm (01/11/18 8:55 AM) Temperature Oral 97.1 DegF [96.4-99.1 DegF] (01/11/18 8:55 AM) Blood Pressure 113/55 mmHg [90-140/60-90 mmHg] (01/11/18 8:55 AM) Respiratory Rate 16 BRMIN [14-20 BRMIN] (01/11/18 8:55 AM) Peripheral Pulse 81 bpm Rate [60-100 bpm] (01/11/18 8:55 AM) Weight 43.636 kg (01/11/18 8:55 AM) Body Mass Index 17.04 m2 (01/11/18 8:55 AM) Problem List Condition Effective Dates Status [...] from [employer] on 02/10/15. 4done at [facility] 5Data migrated from [employer] on [...] on 04/09/15. Originally documented as SULFA. Medications Bromfed DM oral syrup 5 mL, PO, TID, PRN cough, X 10 day, # 150 mL, 0 Refill(s), Pharmacy: [facility] y #[id number] Start Date: 01/11/18 Stop Date: 01/21/18 Status: Ordered Levaquin 500 mg oral tablet 500 mg=1 tab, PO, Q24H, X 7 day, # 7 tab, 0 Refill(s), Pharmacy: [facility]/pharmacy #[id number] Start Date: 01/11/18 Stop Date: 01/18/18 Status: Ordered predniSONE 10 mg oral tablet 10 mg=1 tab, PO, Daily, X 5 day, # 5 tab, 0 Refill(s), Pharmacy: [facility]/pharmacy #[id number] Start Date: 01/11/18 Stop Date: 01/16/18 Status: Ordered Rocephin 1,000 mg, Route: IM, ONCE, Dosing Weight 43.636, kg, Start date: 01/11/18 9:30:0 0 CDT, Stop date: 01/11/18 9:30:00 CDT Start Date: 01/11/18 Stop Date: 01/11/18 Status: Completed triamcinolone ACETONIDE 40 mg/mL injectable suspension 40 mg, Route: IM, ONCE, Dosing Weight 43.636, kg, Start date: 01/11/18 9:30:00 C DT, Stop date: 01/11/18 9:30:00 CDT Start Date: 01/11/18 Stop Date: 01/11/18 Status: Completed Results No data available for [...] ALLERGIC REACTION. 2Result Comment: fluzone high dose [[id number]]. Migrated from OBS ; Data migrated from [employer] on 10/13/2015. 3Result Comment: fluzone (>3 yrs.) [[id number]]. Migrated from OBS ; Data migrated from [employer] on 10/13/2015. 4Result Comment: pneumovax. Migrated from OBS ; Data migrated from [employer] on 10/14/2015. 5Result Comment: historical. Migrated from OBS ; Data migrated from [employer] on 10/13/2015. Procedures Procedure Date Related Diagnosis [...] Type Response Employment/School Status: Retired. 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 Alcohol Past Smoking Status Former smoker; Type: Cigarettes; Previous treatment: None; Exposure to Tobacco Smoke None; Cigarette Smoking Last 365 Days No; Reg Smoking Cessation Counseling No; Number of years: 24; Started at age: 22.0; Stopped at age: 46; entered on: 01/11/18 Assessment and Plan No data available for this section
--- OUTSIDE RECORDS SUMMARY | 2019-05-14 19:04 | XMS REPORT | Summary of Care ---
Author Author [facility] Organization [facility] Address Unknown Phone Unavailable Encounter HQ Abigail(FIN) [id number] Date(s): 01/01/18 - 01/01/18 [facility] [address], [address] [place] [address]- [phone] Discharge Disposition: Home or Self Care Attending Physician: Carolyne Hogan MD Vital Signs Most recent to 1 oldest [Reference Range]: Height 154.94 cm (01/01/18 4:21 PM) Temperature Oral 97.7 DegF [96.4-99.1 DegF] (01/01/18 4:21 PM) Blood Pressure 150/63 mmHg [90-140/60-90 mmHg] *HI* (01/01/18 4:21 PM) Respiratory Rate 16 BRMIN [14-20 BRMIN] (01/01/18 4:21 PM) Peripheral Pulse 75 bpm Rate [60-100 bpm] (01/01/18 4:21 PM) Weight 49.091 kg (01/01/18 4:21 PM) Body Mass Index 20.45 m2 (01/01/18 4:21 PM) Problem List Condition Effective Dates Status [...] Active incontinence)(Confir med) Vitamin D 10/15/14 Active [id number], 18 1Data migrated from [employer] on 02/07/15. 2Data migrated from [employer] on 03/18/15. 3Data migrated from [employer] on 02/10/15. 4done at [facility] 5Data migrated from [employer] [...] on 04/09/15. Originally documented as SULFA. Medications azithromycin 250 mg oral tablet 250 mg=1 tab, PO, Daily, take 2 tablets on the first day, 1 tablet daily to cont inue, X 5 day, # 6 tab, 0 Refill(s), Pharmacy: [facility]/pharmacy #[id number] Start Date: 01/01/18 Stop Date: 01/06/18 Status: Ordered Bromfed DM oral syrup 5 mL, PO, TID, PRN cough, X 10 day, # 150 mL, 0 Refill(s), Pharmacy: [facility] #[id number] Start Date: 01/01/18 Stop Date: 01/11/18 Status: Ordered Results No data available for [...] ALLERGIC REACTION. 2Result Comment: fluzone high dose [[id number]]. Migrated from OBS ; Data migrated from [employer] on 10/13/2015. 3Result Comment: fluzone (>3 yrs.) [[id number]]. Migrated from OBS ; Data migrated from [...] Type Response Employment/School Status: Retired. 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 Alcohol Past Smoking Status Former smoker; Type: Cigarettes; Previous treatment: None; Exposure to Tobacco Smoke None; Cigarette Smoking Last 365 Days No; Reg Smoking Cessation Counseling No; Number of years: 24; Started at age: 22.0; Stopped at age: 46; entered on: 01/01/18 Assessment and Plan No data available for this section
--- OUTSIDE RECORDS SUMMARY | 2019-05-14 19:04 | XMS REPORT | Summary of Care ---
Author Author [facility] Organization [facility] Address Unknown Phone Unavailable Encounter HQ Abigail(FIN) [id number] Date(s): 04/16/19 - 04/16/19 [facility] [address] [address] [phone] Discharge Disposition: Home or Self Care Attending Physician: Saba Araujo DO Vital Signs Most recent to 1 oldest [Reference Range]: Height 160.02 cm (04/16/19 2:16 PM) Blood Pressure 116/57 mmHg [90-140/60-90 mmHg] (04/16/19 2:16 PM) Respiratory Rate 14 BRMIN [14-20 BRMIN] (04/16/19 2:16 PM) Peripheral Pulse 66 bpm Rate [60-100 bpm] (04/16/19 2:16 PM) Weight 45.909 kg (04/16/19 2:16 PM) Body Mass Index 17.93 m2 (04/16/19 2:16 PM) Problem List Condition Effective Dates Status [...] from [employer] on 02/10/15. 4done at [facility] 5Data migrated from [employer] on [...] sulfa Active Macrobid1 Active 1body rash Medications amLODIPine 5 mg oral tablet 5 mg=1 tab, PO, Daily, # 90 tab, 1 Refill(s), Pharmacy: [facility] #[id number] Start Date: 04/16/19 Status: Ordered Results No data available for [...] ALLERGIC REACTION. 3Result Comment: fluzone high dose [ajl305]. Migrated from OBS ; Data migrated from [employer] on 10/13/2015. 4Result Comment: fluzone (>3 yrs.) [umz757]. Migrated from OBS ; Data migrated from [employer] on 10/13/2015. 5Result Comment: pneumovax. Migrated from OBS ; Data migrated from [employer] on 10/14/2015. 6Result Comment: historical. Migrated from OBS ; Data migrated from [employer] on 10/13/2015. Procedures Procedure Date Related Diagnosis [...] Type Response Employment/School Status: Retired. 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 Alcohol Past Smoking Status Former smoker; Type: Cigarettes; Previous treatment: None; Exposure to Tobacco Smoke None; Cigarette Smoking Last 365 Days No; Reg Smoking Cessation Counseling No; Number of years: 24; Started at age: 22.0; Stopped at age: 46; entered on: 04/16/19 Assessment and Plan No data available for this section
--- OUTSIDE RECORDS SUMMARY | 2019-05-14 19:05 | XMS REPORT | Summary of Care ---
Author Author [facility] Organization [facility] Address Unknown Phone Unavailable Encounter HQ Abigail(FIN) [id number] Date(s): 06/04/18 - 07/03/18 [facility] [address] [place] [address]- Encounter Diagnosis Gastro-esophageal reflux disease without esophagitis (Final) - 07/09/18 Discharge Disposition: Home or Self Care Attending [...] from [employer] on 02/10/15. 4done at [facility] 5Data migrated from [employer] on [...] ALLERGIC REACTION. 3Result Comment: fluzone high dose [fid460]. Migrated from OBS ; Data migrated from [employer] on 10/13/2015. 4Result Comment: fluzone (>3 yrs.) [fjn162]. Migrated from OBS ; Data migrated from [employer] on 10/13/2015. 5Result Comment: pneumovax. Migrated from OBS ; Data migrated from [employer] on 10/14/2015. 6Result Comment: historical. Migrated from OBS ; Data migrated from [employer] on 10/13/2015. Procedures Procedure Date Related Diagnosis [...] Type Response Employment/School Status: Retired. 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 Alcohol Past Smoking Status Former smoker; Type: Cigarettes; Previous treatment: None; Exposure to Tobacco Smoke None; Cigarette Smoking Last 365 Days No; Reg Smoking Cessation Counseling No; Number of years: 24; Started at age: 22.0; Stopped at age: 46; entered on: 01/03/19 Assessment and Plan No data available for this section
--- OUTSIDE RECORDS SUMMARY | 2019-05-14 19:05 | XMS REPORT | Summary of Care ---
Author Author [facility] Organization [facility] Address Unknown Phone Unavailable Encounter HQ Abigail(FIN) [id number] Date(s): 10/16/18 - 10/17/18 [facility] [address] [address]- Vital Signs No data available for this [...] Centricity on 02/10/15. 4done at [facility] 5Data migrated from [employer] on 7/8/15. [...] sulfa Active Macrobid1 Active 1body rash Medications irbesartan 150 mg oral tablet =1 tab, PO, Daily, # 30 tab, Refill(s) 5, Pharmacy: [facility]/pharmacy #[id number] Start Date: 11/30/18 Stop Date: 03/21/19 Status: Discontinued tramadol 50 mg oral tablet 50 mg=1 tab, PO, Q12H, PRN Pain, X 20 day, # 40 tab, 0 Refill(s) Start Date: 10/16/18 Stop Date: 11/05/18 Status: Completed Results No data available for [...] ALLERGIC REACTION. 3Result Comment: fluzone high dose [[id number]]. Migrated from OBS ; Data migrated from [employer] on 10/13/2015. 4Result Comment: fluzone (>3 yrs.) [[id number]]. Migrated from OBS ; Data migrated from [...] Alcohol Past Employment/School Status: Retired. 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 Smoking Status Former smoker; Type: Cigarettes; Previous treatment: None; Exposure to Tobacco Smoke None; Cigarette Smoking Last 365 Days No; Reg Smoking Cessation Counseling No; Number of years: 24; Started at age: 22.0; Stopped at age: 46; entered on: 04/16/19 Assessment and Plan No data available for this section
--- OUTSIDE RECORDS SUMMARY | 2019-05-14 19:05 | XMS REPORT | Summary of Care ---
Author Author [facility] Organization [facility] Address Unknown Phone Unavailable Encounter HQ Abigail(FIN) [id number] Date(s): 12/11/17 - 12/11/17 [facility] [address], [address] [place] [address]- [phone] Discharge Disposition: Home or Self Care Attending Physician: Carolyne Hogan MD Vital Signs Most recent to 1 oldest [Reference Range]: Height 154.94 cm (12/11/17 3:40 PM) Temperature Oral 98.3 DegF [96.4-99.1 DegF] (12/11/17 3:40 PM) Blood Pressure 163/67 mmHg [90-140/60-90 mmHg] *HI* (12/11/17 3:40 PM) Respiratory Rate 14 BRMIN [14-20 BRMIN] (12/11/17 3:40 PM) Peripheral Pulse 74 bpm Rate [60-100 bpm] (12/11/17 3:40 PM) Weight 49.091 kg (12/11/17 3:40 PM) Body Mass Index 20.45 m2 (12/11/17 3:40 PM) Problem List Condition Effective Dates Status [...] from [employer] on 02/10/15. 4done at [facility] 5Data migrated from [employer] on 03/18/15. [...] on 04/09/15. Originally documented as SULFA. Medications gabapentin 100 mg oral capsule 100 mg=1 cap, PO, BID, # 90 cap, 1 Refill(s), Pharmacy: [facility]/pharmacy #[id number] Start Date: 12/11/17 Status: Ordered ondansetron 4 mg oral tablet, disintegrating 4 mg=1 tab, PO, TID, PRN Nausea / Vomiting, Dissolve tab under tongue, # 10 tab, 0 Refill(s), Pharmacy: [facility]/pharmacy #[id number] Start Date: 12/11/17 Stop Date: 01/11/18 Status: Discontinued valACYclovir 1 g oral tablet 1,000 mg, PO, TID, X 7 day, # 21 tab, 0 Refill(s), Pharmacy: [facility]/pharmacy #[id number] Start Date: 12/11/17 Stop Date: 12/18/17 Status: Completed Results No data available for [...] ALLERGIC REACTION. 2Result Comment: fluzone high dose [ejl181]. Migrated from OBS ; Data migrated from [employer] on 10/13/2015. 3Result Comment: fluzone (>3 yrs.) [[id number]]. Migrated from OBS ; Data migrated from [...] Type Response Employment/School Status: Retired. 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 Alcohol Past Smoking Status Former smoker; Type: Cigarettes; Previous treatment: None; Exposure to Tobacco Smoke None; Cigarette Smoking Last 365 Days No; Reg Smoking Cessation Counseling No; Number of years: 24; Started at age: 22.0; Stopped at age: 46; entered on: 02/23/18 Assessment and Plan No data available for this section
--- OUTSIDE RECORDS SUMMARY | 2019-05-14 19:05 | XMS REPORT | Summary of Care ---
Author Author [facility] Address Unknown Phone Unavailable Encounter ALICIA Hayes(WAGNER) [id number] Date(s): 09/13/17 - 10/12/17 [facility] Encounter Diagnosis Unsteadiness on feet (Final) - 10/16/17 Muscle weakness (generalized) (Final) - Other abnormalities of gait and mobility (Final) - Stiffness of right shoulder, not elsewhere classified (Final) - Stiffness of right knee, not elsewhere classified (Final) - Type 2 diabetes mellitus without complications (Final) - Essential (primary) hypertension (Final) - Age-related osteoporosis without current pathological fracture (Final) - Diaphragmatic hernia without obstruction or gangrene (Final) - Discharge Disposition: Home or Self Care Attending Physician: Olivia Romero MD Vital Signs [...] from [employer] on 02/10/15. 4done at [facility] 5Data migrated from [employer] [...] ALLERGIC REACTION. 2Result Comment: fluzone high dose [[id number]]. Migrated from OBS ; Data migrated from [employer] on 10/13/2015. 3Result Comment: fluzone (>3 yrs.) [ctq163]. Migrated from OBS ; Data migrated from [employer] on 10/13/2015. 4Result Comment: pneumovax. Migrated from OBS ; Data migrated from [employer] on 10/14/2015. 5Result Comment: historical. Migrated from OBS ; Data migrated from [employer] on 10/13/2015. Procedures Procedure Date Related Diagnosis [...] Type Response Employment/School Status: Retired. 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 Alcohol Past Smoking Status Former smoker; Type: Cigarettes; Previous treatment: None; Exposure to Tobacco Smoke None; Cigarette Smoking Last 365 Days No; Reg Smoking Cessation Counseling No; Number of years: 24; Started at age: 22.0; Stopped at age: 46; entered on: 01/16/18 Assessment and Plan No data available for this section
--- OUTSIDE RECORDS SUMMARY | 2019-05-14 19:05 | XMS REPORT | Summary of Care ---
Author Author [facility] Organization [facility] Address Unknown Phone Unavailable Encounter HQ Abigail(FIN) [id number] Date(s): 02/23/18 - 02/23/18 [facility] [address], [address] [place] [address]- [phone] Discharge Disposition: Home or Self Care Attending Physician: Carolyne Hogan MD Vital Signs Most recent to 1 oldest [Reference Range]: Height 167.64 cm (02/23/18 10:20 AM) Temperature Oral 96.9 DegF [96.4-99.1 DegF] (02/23/18 10:20 AM) Blood Pressure 120/58 mmHg [90-140/60-90 mmHg] (02/23/18 10:20 AM) Respiratory Rate 16 BRMIN [14-20 BRMIN] (02/23/18 10:20 AM) Peripheral Pulse 78 bpm Rate [60-100 bpm] (02/23/18 10:20 AM) Weight 42.727 kg (02/23/18 10:20 AM) Body Mass Index 15.2 m2 (02/23/18 10:20 AM) Problem List Condition Effective Dates Status [...] from [employer] on 02/10/15. 4done at [facility] 5Data migrated from [employer] [...] 04/09/15. Originally documented as SULFA. Medications No Known Medications Results No data available for this section Immunizations Given and Recorded Vaccine Date Status Refusal Reason influenza virus vaccine, inactivated1 06/22/17 Given influenza virus vaccine, inactivated 06/11/16 Recorded influenza virus vaccine, inactivated 06/26/15 Given influenza virus vaccine, inactivated2 05/26/14 Given influenza virus vaccine, inactivated3 06/10/13 Given pneumococcal 23-valent vaccine4 2/4/15 Given Hx influenza vaccine-unspecified5 06/07/12 Given 1Result Comment: PATIENT WAITED IN ROOM FOR TEN MINS, NO ALLERGIC REACTION. 2Result Comment: fluzone high dose [ijk808]. Migrated from OBS ; Data migrated from [employer] on 10/13/2015. 3Result Comment: fluzone (>3 yrs.) [ivl578]. Migrated from OBS ; Data migrated from [employer] on 10/13/2015. 4Result Comment: pneumovax. Migrated from OBS ; Data migrated from [employer] on 10/14/2015. 5Result Comment: historical. Migrated from OBS ; Data migrated from [employer] on 10/13/2015. Procedures Procedure Date Related Diagnosis Body Site Status Removal impacted cerumen using 02/23/18 Completed irrigation/lavage, unilateral Diabetic retinopathy screening1 12/28/17 Completed Endoscopy2 10/03/17 Completed Bone density scan3 04/18/17 Completed Fundoplication 08/2015 Completed Mammogram 10/2013 Completed Bypass4 02/2013 Completed Cholecystectomy 1979 Completed Hysterectomy 1979 Completed section Completed 1Dr Guanaco 2Hiatus Hernia, gastritis Dr Mario 3Osteoporosis of the left femoral neck. 4Bypass of the right leg Social History Social History Type Response Employment/School Status: Retired. 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 Alcohol Past Smoking Status Former smoker; Type: Cigarettes; Previous treatment: None; Exposure to Tobacco Smoke None; Cigarette Smoking Last 365 Days No; Reg Smoking Cessation Counseling No; Number of years: 24; Started at age: 22.0; Stopped at age: 46; entered on: 02/23/18 Assessment and Plan No data available for this section
--- OUTSIDE RECORDS SUMMARY | 2019-05-14 19:05 | XMS REPORT | Summary of Care ---
Author Author [facility] Organization [facility] Address Unknown Phone Unavailable Encounter HQ Abigail(FIN) [id number] Date(s): 12/18/18 - 12/18/18 [facility] [address] [place] [address]- Discharge Disposition: Home or Self Care Attending Physician: Carolyne Hogan MD Vital Signs Most recent to 1 oldest [Reference Range]: Height 160.02 cm (12/18/18 10:44 AM) Temperature Oral 97.4 DegF [96.4-99.1 DegF] (12/18/18 10:44 AM) Blood Pressure 113/63 mmHg [90-140/60-90 mmHg] (12/18/18 10:44 AM) Respiratory Rate 16 BRMIN [14-20 BRMIN] (12/18/18 10:44 AM) Peripheral Pulse 64 bpm Rate [60-100 bpm] (12/18/18 10:44 AM) Weight 45.909 kg (12/18/18 10:44 AM) Body Mass Index 17.93 m2 (12/18/18 10:44 AM) Problem List Condition Effective Dates Status [...] from [employer] on 02/10/15. 4done at [facility] 5Data migrated from [employer] [...] on 04/09/15. Originally documented as SULFA. Medications diclofenac topical 1% gel 4 gm=1 appl, TOP, QID, PRN for pain, # 100 gm, 2 Refill(s), Pharmacy: [id number] Start Date: 12/18/18 Stop Date: 01/08/19 Status: Ordered gabapentin 100 mg oral capsule 100 mg=1 cap, PO, BID, # 180 cap, 1 Refill(s), Pharmacy: [facility]/pharmacy #[id number] Start Date: 12/18/18 Stop Date: 06/16/19 Status: Ordered Results No data available for [...] ALLERGIC REACTION. 3Result Comment: fluzone high dose [nji960]. Migrated from OBS ; Data migrated from [employer] on 10/13/2015. 4Result Comment: fluzone (>3 yrs.) [[id number]]. Migrated from OBS ; Data migrated from [employer] on 10/13/2015. 5Result Comment: pneumovax. Migrated from OBS ; Data migrated from [employer] on 10/14/2015. 6Result Comment: historical. Migrated from OBS ; Data migrated from [employer] on 10/13/2015. Procedures Procedure Date Related Diagnosis Body Site Status Removal impacted cerumen using 12/18/18 Completed irrigation/lavage, unilateral Diabetic retinopathy screening1 12/28/17 Completed Endoscopy2 10/03/17 Completed Bone density scan3 04/18/17 Completed Fundoplication 08/2015 Completed Mammogram 10/2013 Completed Bypass4 02/2013 Completed Cholecystectomy 1979 Completed Hysterectomy 1979 Completed section Completed 1Dr Guanaco 2Hiatus Hernia, gastritis Dr Mario 3Osteoporosis of the left femoral neck. 4Bypass of the right leg Social History Social History Type Response Employment/School Status: Retired. 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 Alcohol Past Smoking Status Former smoker; Type: Cigarettes; Previous treatment: None; Exposure to Tobacco Smoke None; Cigarette Smoking Last 365 Days No; Reg Smoking Cessation Counseling No; Number of years: 24; Started at age: 22.0; Stopped at age: 46; entered on: 12/18/18 Assessment and Plan No data available for this section
--- OUTSIDE RECORDS SUMMARY | 2019-05-14 19:05 | XMS REPORT | Summary of Care ---
Author Author [facility] Organization [facility] Address Unknown Phone Unavailable Encounter HQ Rowena_yuly(FIN) [id number] Date(s): 03/19/18 - 03/20/18 [facility] [address], [address] [place] [address]- [phone] Vital Signs No data available for this [...] from [employer] on 02/10/15. 4done at [facility] 5Data migrated from [employer] on [...] ALLERGIC REACTION. 2Result Comment: fluzone high dose [[id number]]. Migrated from OBS ; Data migrated from [employer] on 10/13/2015. 3Result Comment: fluzone (>3 yrs.) [fju402]. Migrated from OBS ; Data migrated from [...] Type Response Employment/School Status: Retired. 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 Alcohol Past Smoking Status Former smoker; Type: Cigarettes; Previous treatment: None; Exposure to Tobacco Smoke None; Cigarette Smoking Last 365 Days No; Reg Smoking Cessation Counseling No; Number of years: 24; Started at age: 22.0; Stopped at age: 46; entered on: 02/23/18 Assessment and Plan No data available for this section
--- OUTSIDE RECORDS SUMMARY | 2019-05-14 19:05 | XMS REPORT | Summary of Care ---
Author Author [facility] Organization [facility] Address Unknown Phone Unavailable Encounter HQ Janethr_yuly(FIN) [id number] Date(s): 03/23/18 - 03/24/18 [facility] [address], [address] [place] [address] [phone] Vital Signs No data available for this [...] from [employer] on 02/10/15. 4done at [facility] 5Data migrated from [employer] [...] on 04/09/15. Originally documented as SULFA. Medications ondansetron 4 mg oral disintegrating strip 4 mg=1 ea, PO, TID, # 30 strip, 1 Refill(s), Pharmacy: [facility]/pharmacy #[id number] Start Date: 03/23/18 Stop Date: 04/02/18 Status: Ordered Results No data available for [...] ALLERGIC REACTION. 2Result Comment: fluzone high dose [[id number]]. Migrated from OBS ; Data migrated from [employer] on 10/13/2015. 3Result Comment: fluzone (>3 yrs.) [mlr172]. Migrated from OBS ; Data migrated from [employer] on 10/13/2015. 4Result Comment: pneumovax. Migrated from OBS ; Data migrated from [employer] on 10/14/2015. 5Result Comment: historical. Migrated from OBS ; Data migrated from [employer] on 10/13/2015. Procedures Procedure Date Related Diagnosis [...] Type Response Employment/School Status: Retired. 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 Alcohol Past Smoking Status Former smoker; Type: Cigarettes; Previous treatment: None; Exposure to Tobacco Smoke None; Cigarette Smoking Last 365 Days No; Reg Smoking Cessation Counseling No; Number of years: 24; Started at age: 22.0; Stopped at age: 46; entered on: 02/23/18 Assessment and Plan No data available for this section
--- OUTSIDE RECORDS SUMMARY | 2019-05-14 19:05 | XMS REPORT | Summary of Care ---
Author Author [facility] Organization [facility] Address Unknown Phone Unavailable Encounter HQ Abigail(FIN) [id number] Date(s): 03/29/19 - 03/30/19 [facility] [address] [place] [address]- [phone] Vital Signs No data available for this [...] from [employer] on 02/10/15. 4done at [facility] 5Data migrated from [employer] on 03/18/15. [...] ALLERGIC REACTION. 3Result Comment: fluzone high dose [ece806]. Migrated from OBS ; Data migrated from [employer] on 10/13/2015. 4Result Comment: fluzone (>3 yrs.) [ume851]. Migrated from OBS ; Data migrated from [...] Type Response Employment/School Status: Retired. 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 Alcohol Past Smoking Status Former smoker; Type: Cigarettes; Previous treatment: None; Exposure to Tobacco Smoke None; Cigarette Smoking Last 365 Days No; Reg Smoking Cessation Counseling No; Number of years: 24; Started at age: 22.0; Stopped at age: 46; entered on: 03/21/19 Assessment and Plan No data available for this section
--- OUTSIDE RECORDS SUMMARY | 2019-05-14 19:05 | XMS REPORT | Summary of Care ---
Author Author [facility] Organization [facility] Address Unknown Phone Unavailable Encounter HQ Abigail(FIN) [id number] Date(s): 01/16/18 - 01/16/18 [facility] [address], [address] [place] [address]- [phone] Discharge Disposition: Home or Self Care Attending Physician: Carolyne Hogan MD Vital Signs Most recent to 1 oldest [Reference Range]: Height 157.48 cm (01/16/18 4:25 PM) Temperature Oral 97.0 DegF [96.4-99.1 DegF] (01/16/18 4:25 PM) Blood Pressure 124/60 mmHg [90-140/60-90 mmHg] (01/16/18 4:25 PM) Respiratory Rate 16 BRMIN [14-20 BRMIN] (01/16/18 4:25 PM) Peripheral Pulse 91 bpm Rate [60-100 bpm] (01/16/18 4:25 PM) Weight 44.545 kg (01/16/18 4:25 PM) Body Mass Index 17.96 m2 (01/16/18 4:25 PM) Problem List Condition Effective Dates Status [...] from [employer] on 02/10/15. 4done at [facility] 5Data migrated from [employer] on [...] ALLERGIC REACTION. 2Result Comment: fluzone high dose [[id number]]. Migrated from OBS ; Data migrated from [employer] on 10/13/2015. 3Result Comment: fluzone (>3 yrs.) [zzu484]. Migrated from OBS ; Data migrated from [employer] on 10/13/2015. 4Result Comment: pneumovax. Migrated from OBS ; Data migrated from [employer] on 10/14/2015. 5Result Comment: historical. Migrated from OBS ; Data migrated from [employer] on 10/13/2015. Procedures Procedure Date Related Diagnosis [...] Type Response Employment/School Status: Retired. 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 Alcohol Past Smoking Status Former smoker; Type: Cigarettes; Previous treatment: None; Exposure to Tobacco Smoke None; Cigarette Smoking Last 365 Days No; Reg Smoking Cessation Counseling No; Number of years: 24; Started at age: 22.0; Stopped at age: 46; entered on: 01/16/18 Assessment and Plan No data available for this section
--- OUTSIDE RECORDS SUMMARY | 2019-05-14 19:05 | XMS REPORT | Summary of Care ---
Author Author [facility] Address Unknown Phone Unavailable Encounter ALICIA Hayes(WAGNER) [id number] Date(s): 09/13/17 - 10/12/17 [facility] Encounter Diagnosis Unsteadiness on feet (Final) [...] from [employer] on 02/10/15. 4done at [facility] 5Data migrated from [employer] on [...] ALLERGIC REACTION. 2Result Comment: fluzone high dose [anv672]. Migrated from OBS ; Data migrated from [employer] on 10/13/2015. 3Result Comment: fluzone (>3 yrs.) [res685]. Migrated from OBS ; Data migrated from [employer] on 10/13/2015. 4Result Comment: pneumovax. Migrated from OBS ; Data migrated from [employer] on 10/14/2015. 5Result Comment: historical. Migrated from OBS ; Data migrated from [employer] on 10/13/2015. Procedures Procedure Date Related Diagnosis [...] Type Response Employment/School Status: Retired. 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 Alcohol Past Smoking Status Former smoker; Type: Cigarettes; Previous treatment: None; Exposure to Tobacco Smoke None; Cigarette Smoking Last 365 Days No; Reg Smoking Cessation Counseling No; Number of years: 24; Started at age: 22.0; Stopped at age: 46; entered on: 01/16/18 Assessment and Plan No data available for this section
--- OUTSIDE RECORDS SUMMARY | 2019-05-14 19:05 | XMS REPORT | Summary of Care ---
Author Author [facility] Organization [facility] Address Unknown Phone Unavailable Encounter HQ Janethr_yuly(FIN) [id number] Date(s): 12/18/17 - 12/19/17 [facility] [address], [address] [place] [address]- [phone] Vital Signs No data available for this [...] from [employer] on 02/10/15. 4done at [facility] 5Data migrated from [employer] [...] ALLERGIC REACTION. 2Result Comment: fluzone high dose [jrk782]. Migrated from OBS ; Data migrated from [employer] on 10/13/2015. 3Result Comment: fluzone (>3 yrs.) [bqn504]. Migrated from OBS ; Data migrated from [...] Type Response Employment/School Status: Retired. 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 Alcohol Past Smoking Status Former smoker; Type: Cigarettes; Previous treatment: None; Exposure to Tobacco Smoke None; Cigarette Smoking Last 365 Days No; Reg Smoking Cessation Counseling No; Number of years: 24; Started at age: 22.0; Stopped at age: 46; entered on: 02/23/18 Assessment and Plan No data available for this section
--- OUTSIDE RECORDS SUMMARY | 2019-05-14 19:05 | XMS REPORT | Summary of Care ---
Author Author [facility] Organization [facility] Address Unknown Phone Unavailable Encounter HQ Abigail(FIN) [id number] Date(s): 04/24/19 - 04/25/19 [facility] [address] [phone] Vital Signs No data available for this [...] [employer] on 02/10/15. 4done [address] [facility] 5Data migrated from GE [...] ALLERGIC REACTION. 3Result Comment: fluzone high dose [cke925]. Migrated from OBS ; Data migrated from [employer] on 10/13/2015. 4Result Comment: fluzone (>3 yrs.) [efj686]. Migrated from OBS ; Data migrated from [...] Alcohol Past Employment/School Status: Retired. 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 Smoking Status Former smoker; Type: Cigarettes; Previous treatment: None; Exposure to Tobacco Smoke None; Cigarette Smoking Last 365 Days No; Reg Smoking Cessation Counseling No; Number of years: 24; Started at age: 22.0; Stopped at age: 46; entered on: 04/16/19 Assessment and Plan No data available for this section
--- OUTSIDE RECORDS SUMMARY | 2019-05-14 19:05 | XMS REPORT | Summary of Care ---
Author Author [facility] Organization [facility] Address Unknown Phone Unavailable Encounter HQ Abigail(FIN) [id number] Date(s): 12/05/17 - 12/05/17 [facility] [address], [address] [place] [address]- [phone] Discharge Disposition: Home or Self Care Attending Physician: Carolyne Hogan MD Vital Signs Most recent to 1 oldest [Reference Range]: Height 157.48 cm (12/05/17 9:31 AM) Temperature Oral 96.5 DegF [96.4-99.1 DegF] (12/05/17 9:31 AM) Blood Pressure 121/58 mmHg [90-140/60-90 mmHg] (12/05/17 9:31 AM) Respiratory Rate 16 BRMIN [14-20 BRMIN] (12/05/17 9:31 AM) Peripheral Pulse 68 bpm Rate [60-100 bpm] (12/05/17 9:31 AM) Weight 49.091 kg (12/05/17 9:31 AM) Body Mass Index 19.79 m2 (12/05/17 9:31 AM) Problem List Condition Effective Dates Status [...] from [employer] on 02/10/15. 4done at [facility] 5Data migrated from [employer] on 03/18/15. [...] on 04/09/15. Originally documented as SULFA. Medications amLODIPine 10 mg oral tablet See Instructions, TAKE 1 TABLET BY MOUTH EVERY DAY, # 90 tab, 1 Refill(s) Start Date: 12/05/17 Stop Date: 12/30/17 Status: Completed NexIUM 40 mg oral delayed release capsule 40 mg=1 cap, PO, Daily, # 90 cap, 1 Refill(s) Start Date: 12/05/17 Status: Ordered Results No data available for [...] ALLERGIC REACTION. 2Result Comment: fluzone high dose [nlw014]. Migrated from OBS ; Data migrated from [employer] on 10/13/2015. 3Result Comment: fluzone (>3 yrs.) [ptc595]. Migrated from OBS ; Data migrated from [employer] on 10/13/2015. 4Result Comment: pneumovax. Migrated from OBS ; Data migrated from [employer] on 10/14/2015. 5Result Comment: historical. Migrated from OBS ; Data migrated from [employer] on 10/13/2015. Procedures Procedure Date Related Diagnosis [...] Type Response Employment/School Status: Retired. 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 Alcohol Past Smoking Status Former smoker; Type: Cigarettes; Previous treatment: None; Exposure to Tobacco Smoke None; Cigarette Smoking Last 365 Days No; Reg Smoking Cessation Counseling No; Number of years: 24; Started at age: 22.0; Stopped at age: 46; entered on: 02/23/18 Assessment and Plan No data available for this section
--- OUTSIDE RECORDS SUMMARY | 2019-05-14 19:06 | XMS REPORT | Summary of Care ---
Author Author [facility] Organization [facility] Address Unknown Phone Unavailable Encounter ALICIA Hayes(WANGER) [id number] Date(s): 12/27/18 - 01/25/19 [facility] [address] [place] [address]- Discharge Disposition: Home or Self Care Attending [...] [employer] on 02/10/15. 4done at [facility] 5Data migrated from [employer] [...] ALLERGIC REACTION. 3Result Comment: fluzone high dose [hvk439]. Migrated from OBS ; Data migrated from [employer] on 10/13/2015. 4Result Comment: fluzone (>3 yrs.) [ngs544]. Migrated from OBS ; Data migrated from [employer] on 10/13/2015. 5Result Comment: pneumovax. Migrated from OBS ; Data migrated from [employer] on 10/14/2015. 6Result Comment: historical. Migrated from OBS ; Data migrated from [employer] on 10/13/2015. Procedures Procedure Date Related Diagnosis [...] Type Response Employment/School Status: Retired. 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 Alcohol Past Smoking Status Former smoker; Type: Cigarettes; Previous treatment: None; Exposure to Tobacco Smoke None; Cigarette Smoking Last 365 Days No; Reg Smoking Cessation Counseling No; Number of years: 24; Started at age: 22.0; Stopped at age: 46; entered on: 01/24/19 Assessment and Plan No data available for this section
--- OUTSIDE RECORDS SUMMARY | 2019-05-14 19:06 | XMS REPORT | Summary of Care ---
Author Author [facility] Organization [facility] Address Unknown Phone Unavailable Encounter HQ Abigail(FIN) [id number] Date(s): 05/02/19 - 05/03/19 [facility] [address] [address]- Vital Signs No data available for this [...] from [employer] Cent[employer]ity on 02/10/15. 4done at [facility] 5Data migrated from [employer] [...] Active Macrobid1 Active 1body rash Medications amLODIPine 10 mg oral tablet 10 mg=1 tab, PO, Daily, # 90 tab, 1 Refill(s), Pharmacy: [facility]/pharmacy #[id number] Start Date: 05/02/19 Status: Ordered Results No data [...] ALLERGIC REACTION. 3Result Comment: fluzone high dose [pme291]. Migrated from OBS ; Data migrated from [employer] on 10/13/2015. 4Result Comment: fluzone (>3 yrs.) [zmz368]. Migrated from OBS ; Data migrated from [employer] on 10/13/2015. 5Result Comment: pneumovax. Migrated from OBS ; Data migrated from [employer] on 10/14/2015. 6Result Comment: historical. Migrated from OBS ; Data migrated from [employer] on 10/13/2015. Procedures Procedure Date Related Diagnosis [...] Alcohol Past Employment/School Status: Retired. 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 Smoking Status Former smoker; Type: Cigarettes; Previous treatment: None; Exposure to Tobacco Smoke None; Cigarette Smoking Last 365 Days No; Reg Smoking Cessation Counseling No; Number of years: 24; Started at age: 22.0; Stopped at age: 46; entered on: 04/16/19 Assessment and Plan No data available for this section
--- OUTSIDE RECORDS SUMMARY | 2019-05-14 19:06 | XMS REPORT | Summary of Care ---
Author Author [facility] Organization [facility] Address Unknown Phone Unavailable Encounter ALICIA Hayes(FIN) [id number] Date(s): 06/12/18 - 06/12/18 [facility] [address] [address]- Discharge Disposition: Home or Self Care Attending Physician: Carolyne Hogan MD Vital Signs Most recent to 1 oldest [Reference Range]: Height 157.48 cm (06/12/18 9:37 AM) Temperature Oral 97.9 DegF [96.4-99.1 DegF] (06/12/18 9:37 AM) Blood Pressure 128/60 mmHg [90-140/60-90 mmHg] (06/12/18 9:37 AM) Respiratory Rate 16 BRMIN [14-20 BRMIN] (06/12/18 9:37 AM) Peripheral Pulse 65 bpm Rate [60-100 bpm] (06/12/18 9:37 AM) Weight 44.545 kg (06/12/18 9:37 AM) Body Mass Index 17.96 m2 (06/12/18 9:37 AM) Problem List Condition Effective Dates Status [...] from [employer] Cent[employer]ity on 02/10/15. 4done at [facility] 5Data migrated from [employer] on 03/18/15. [...] on 04/09/15. Originally documented as SULFA. Medications esomeprazole 40 mg oral delayed release capsule 40 mg=1 cap, PO, Daily, # 90 cap, 0 Refill(s), given to patient Start Date: 06/12/18 Status: Ordered famotidine 20 mg oral tablet 20 mg=1 tab, PO, BID, # 120 tab, 1 Refill(s), Pharmacy: [facility]/pharmacy #[id number] Start Date: 06/12/18 Stop Date: 10/01/18 Status: Completed famotidine 20 mg oral tablet =1 tab, PO, BID, # 120 tab, Refill(s) 1, Pharmacy: [facility]/pharmacy #[id number] Start Date: 10/01/18 Stop Date: 12/18/18 Status: Discontinued Results No data available for this section [...] ALLERGIC REACTION. 3Result Comment: fluzone high dose [eko126]. Migrated from OBS ; Data migrated from [employer] on 10/13/2015. 4Result Comment: fluzone (>3 yrs.) [fel938]. Migrated from OBS ; Data migrated from [...] Type Response Employment/School Status: Retired. 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 Alcohol Past Smoking Status Former smoker; Type: Cigarettes; Previous treatment: None; Exposure to Tobacco Smoke None; Cigarette Smoking Last 365 Days No; Reg Smoking Cessation Counseling No; Number of years: 24; Started at age: 22.0; Stopped at age: 46; entered on: 12/18/18 Assessment and Plan No data available for this section
--- OUTSIDE RECORDS SUMMARY | 2019-05-14 19:06 | XMS REPORT | Summary of Care ---
Author Author [facility] Organization [facility] Address Unknown Phone Unavailable Encounter HQ Abigail(FIN) [id number] Date(s): 10/16/18 - 10/17/18 [facility] [address], [address] [place], [place] [address]- [phone] Vital Signs No data available for this [...] [employer] on 02/10/15. [address]done [address] [facility] 5Data migrated from [employer] on [...] on 04/09/15. Originally documented as SULFA. Medications tramadol 50 mg oral tablet 50 mg=1 tab, PO, Q12H, PRN Pain, X 20 day, # 40 tab, 0 Refill(s) Start Date: 10/16/18 Stop Date: 11/05/18 Status: Ordered Results No data available for [...] ALLERGIC REACTION. 3Result Comment: fluzone high dose [iok540]. Migrated from OBS ; Data migrated from [employer] on 10/13/2015. 4Result Comment: fluzone (>3 yrs.) [zkz313]. Migrated from OBS ; Data migrated from [employer] on 10/13/2015. 5Result Comment: pneumovax. Migrated from OBS ; Data migrated from [employer] on 10/14/2015. 6Result Comment: historical. Migrated from OBS ; Data migrated from [employer] on 10/13/2015. Procedures Procedure Date Related Diagnosis [...] Type Response Employment/School Status: Retired. 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 Alcohol Past Smoking Status Former smoker; Type: Cigarettes; Previous treatment: None; Exposure to Tobacco Smoke None; Cigarette Smoking Last 365 Days No; Reg Smoking Cessation Counseling No; Number of years: 24; Started at age: 22.0; Stopped at age: 46; entered on: 10/15/18 Assessment and Plan No data available for this section
--- OUTSIDE RECORDS SUMMARY | 2019-05-14 19:06 | XMS REPORT | Summary of Care ---
Author Author [facility] Organization [facility] Address Unknown Phone Unavailable Encounter ALICIA Hayes(FIN) [id number] Date(s): 12/27/18 - 12/28/18 [facility] [address] [address]- Vital Signs No data available for this [...] from [employer] on 02/10/15. 4done at [facility] 5Data migrated from [employer] on [...] ALLERGIC REACTION. 3Result Comment: fluzone high dose [kke547]. Migrated from OBS ; Data migrated from [employer] on 10/13/2015. 4Result Comment: fluzone (>3 yrs.) [ukt258]. Migrated from OBS ; Data migrated from [...] Type Response Employment/School Status: Retired. 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 Alcohol Past Smoking Status Former smoker; Type: Cigarettes; Previous treatment: None; Exposure to Tobacco Smoke None; Cigarette Smoking Last 365 Days No; Reg Smoking Cessation Counseling No; Number of years: 24; Started at age: 22.0; Stopped at age: 46; entered on: 12/18/18 Assessment and Plan No data available for this section
--- OUTSIDE RECORDS SUMMARY | 2019-05-14 19:06 | XMS REPORT | Summary of Care ---
Author Author [facility] Organization [facility] Address Unknown Phone Unavailable Encounter HQ Rowena_yuly(FIN) [id number] Date(s): 03/27/18 - 03/28/18 [facility] [address], [address] [place], [place] [address]- [phone] Vital Signs No data available for this [...] from [employer] on 02/10/15. 4done at [facility] 5Data migrated from [employer] on [...] ALLERGIC REACTION. 3Result Comment: fluzone high dose [dfm940]. Migrated from OBS ; Data migrated from [employer] on 10/13/2015. 4Result Comment: fluzone (>3 yrs.) [kam143]. Migrated from OBS ; Data migrated from [...] Type Response Employment/School Status: Retired. 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 Alcohol Past Smoking Status Former smoker; Type: Cigarettes; Previous treatment: None; Exposure to Tobacco Smoke None; Cigarette Smoking Last 365 Days No; Reg Smoking Cessation Counseling No; Number of years: 24; Started at age: 22.0; Stopped at age: 46; entered on: 06/12/18 Assessment and Plan No data available for this section
--- OUTSIDE RECORDS SUMMARY | 2019-05-14 19:06 | XMS REPORT | Summary of Care ---
Author Author [facility] Organization [facility] Address Unknown Phone Unavailable Encounter HQ Abigail(FIN) [id number] Date(s): 02/26/19 - 02/27/19 [facility] [address] [address] [address] [place] [address] Vital Signs No data available for this [...] from [employer] on 02/10/15. 4done at [facility] 5Data migrated from [employer] [...] sulfa Active Macrobid1 Active 1body rash Medications DME Prescription See Instructions, MISC, ONCE, charan lopez, # 1 unit, 0 Refill(s) Start Date: 03/01/19 Status: Ordered Results No data available for [...] ALLERGIC REACTION. 3Result Comment: fluzone high dose [[id number]]. Migrated from OBS ; Data migrated from [employer] on 10/13/2015. 4Result Comment: fluzone (>3 yrs.) [[id number]]. Migrated from OBS ; Data migrated from [employer] on 10/13/2015. 5Result Comment: pneumovax. Migrated from OBS ; Data migrated from [employer] on 10/14/2015. 6Result Comment: historical. Migrated from OBS ; Data migrated from [employer] on 10/13/2015. Procedures Procedure Date Related Diagnosis [...] Type Response Employment/School Status: Retired. 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 Alcohol Past Smoking Status Former smoker; Type: Cigarettes; Previous treatment: None; Exposure to Tobacco Smoke None; Cigarette Smoking Last 365 Days No; Reg Smoking Cessation Counseling No; Number of years: 24; Started at age: 22.0; Stopped at age: 46; entered on: 02/26/19 Assessment and Plan No data available for this section
--- OUTSIDE RECORDS SUMMARY | 2019-05-14 19:06 | XMS REPORT | Summary of Care ---
Author Author [facility] Organization [facility] Address Unknown Phone Unavailable Encounter HQ Abigail(FIN) [id number] Date(s): 10/15/18 - 10/15/18 [facility] [address] [facility] [address] [facility] [address], [address] [place], [place] [address]- [phone] Discharge Disposition: Home or Self Care Attending Physician: Carolyne Hogan MD Vital Signs Most recent to 1 oldest [Reference Range]: Height 160.02 cm (10/15/18 2:52 PM) Temperature Oral 96.8 DegF [96.4-99.1 DegF] (10/15/18 2:52 PM) Blood Pressure 124/65 mmHg [90-140/60-90 mmHg] (10/15/18 2:52 PM) Respiratory Rate 16 BRMIN [14-20 BRMIN] (10/15/18 2:52 PM) Peripheral Pulse 67 bpm Rate [60-100 bpm] (10/15/18 2:52 PM) Weight 46.818 kg (10/15/18 2:52 PM) Body Mass Index 18.28 m2 (10/15/18 2:52 PM) Problem List Condition Effective Dates Status [...] [employer] on 02/10/15. 4done at [facility] 5Data migrated from [employer] on 03/18/15. [...] # 90 tab, 1 Refill(s) Start Date: 10/15/18 Status: Ordered Debrox 6.5% otic solution 5 drp, BOTH EARS, TID, X 10 day, # 15 ml, 0 Refill(s), Pharmacy: [facility]/pharmacy #[id number] Start Date: 10/15/18 Stop Date: 10/25/18 Status: Ordered diclofenac topical 1% gel 4 gm=1 appl, TOP, QID, PRN for pain, # 100 gm, 2 Refill(s), Pharmacy: [facility] #[id number] Start Date: 10/15/18 Stop Date: 11/05/18 Status: Ordered irbesartan 150 mg oral tablet 150 mg=1 tab, PO, Daily, # 30 tab, 0 Refill(s) Start Date: 10/15/18 Status: Ordered tramadol 50 mg oral tablet 50 mg=1 tab, PO, BID, X 15 day, # 30 tab, 0 Refill(s) Start Date: 08/31/18 Stop Date: 09/15/18 Status: Completed Results No data available for [...] ALLERGIC REACTION. 3Result Comment: fluzone high dose [[id number]]. Migrated from OBS ; Data migrated from [employer] on 10/13/2015. 4Result Comment: fluzone (>3 yrs.) [[id number]]. Migrated from OBS ; Data migrated from [employer] on 10/13/2015. 5Result Comment: pneumovax. Migrated from OBS ; Data migrated from [employer] on 10/14/2015. 6Result Comment: historical. Migrated from OBS ; Data migrated from [employer] on 10/13/2015. Procedures Procedure Date Related Diagnosis Body Site Status Removal impacted cerumen using 10/15/18 Completed irrigation/lavage, unilateral Diabetic retinopathy screening1 12/28/17 Completed Endoscopy2 10/03/17 Completed Bone density scan3 04/18/17 Completed Fundoplication 08/2015 Completed Mammogram 10/2013 Completed Bypass4 02/2013 Completed Cholecystectomy 1979 Completed Hysterectomy 1979 Completed section Completed 1Dr Guanaco 2Hiatus Hernia, gastritis Dr Mario 3Osteoporosis of the left femoral neck. 4Bypass of the right leg Social History Social History Type Response Employment/School Status: Retired. 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 Alcohol Past Smoking Status Former smoker; Type: Cigarettes; Previous treatment: None; Exposure to Tobacco Smoke None; Cigarette Smoking Last 365 Days No; Reg Smoking Cessation Counseling No; Number of years: 24; Started at age: 22.0; Stopped at age: 46; entered on: 10/15/18 Assessment and Plan No data available for this section
--- OUTSIDE RECORDS SUMMARY | 2019-05-14 19:06 | XMS REPORT | Summary of Care ---
Author Author [facility] Organization [facility] Address Unknown Phone Unavailable Encounter HQ Abigail(FIN) [id number] Date(s): 04/03/19 - 04/04/19 [facility] [address] [facility] [address] [place] [address]- Vital Signs No data available for this [...] from [employer] on 02/10/15. 4done at [facility] 5Data migrated from [employer] on [...] ALLERGIC REACTION. 3Result Comment: fluzone high dose [[id number]]. Migrated from OBS ; Data migrated from [employer] on 10/13/2015. 4Result Comment: fluzone (>3 yrs.) [[id number]]. Migrated from OBS ; Data migrated from [...] Type Response Employment/School Status: Retired. 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 Alcohol Past Smoking Status Former smoker; Type: Cigarettes; Previous treatment: None; Exposure to Tobacco Smoke None; Cigarette Smoking Last 365 Days No; Reg Smoking Cessation Counseling No; Number of years: 24; Started at age: 22.0; Stopped at age: 46; entered on: 03/21/19 Assessment and Plan No data available for this section
--- OUTSIDE RECORDS SUMMARY | 2019-05-14 19:06 | XMS REPORT | Summary of Care ---
Author Author [facility] Organization [facility] Address Unknown Phone Unavailable Encounter HQ Abigail(FIN) [id number] Date(s): 02/26/19 - 02/26/19 [facility] [address] [address]- Discharge Disposition: Home or Self Care Attending Physician: Saba Araujo DO Vital Signs Most recent to 1 oldest [Reference Range]: Height 160.02 cm (02/26/19 3:22 PM) Temperature Oral 97.9 DegF [96.4-99.1 DegF] (02/26/19 3:22 PM) Blood Pressure 114/61 mmHg [90-140/60-90 mmHg] (02/26/19 3:22 PM) Respiratory Rate 16 BRMIN [14-20 BRMIN] (02/26/19 3:22 PM) Peripheral Pulse 59 bpm Rate [60-100 bpm] *LOW* (02/26/19 3:22 PM) Weight 47.273 kg (02/26/19 3:22 PM) Body Mass Index 18.46 m2 (02/26/19 3:22 PM) Problem List Condition Effective Dates Status [...] Hyperthyroidism(Conf 06/10/13 Active irmed)9 Mixed anxiety and 8/28/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 disorder(Confirmed)1 0 Osteoarthritis(Confi 06/10/13 Active rmed)11 Osteoporosis(Confirm Active ed) Peripheral vascular 10/15/14 Active disease(Confirmed)12 , 13 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 2Data migrated from [employer] on 03/18/15. 3Data migrated from [employer] on 02/10/15. 4done at [facility] 5Data migrated from [employer] on [...] on 04/09/15. Originally documented as SULFA. Medications acetaminophen-tramadol 325 mg-37.5 mg oral tablet 1 tab, PO, Q12H, PRN Pain, X 20 day, # 40 tab, 0 Refill(s) Start Date: 02/26/19 Stop Date: 03/18/19 Status: Ordered nitrofurantoin macrocrystals 100 mg oral capsule (Macrodantin) 100 mg=1 cap, PO, BID, X 7 day, # 14 cap, 0 Refill(s), Pharmacy: [facility]/pharmacy #[id number] Start Date: 02/26/19 Stop Date: 03/05/19 Status: Ordered Results No data available for [...] ALLERGIC REACTION. 3Result Comment: fluzone high dose [[id number]]. Migrated from OBS ; Data migrated from [employer] on 10/13/2015. 4Result Comment: fluzone (>3 yrs.) [[id number]]. Migrated from OBS ; Data migrated from [...] Response Employment/School Status: Retired. 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 Alcohol Past Smoking Status Former smoker; Type: Cigarettes; Previous treatment: None; Exposure to Tobacco Smoke None; Cigarette Smoking Last 365 Days No; Reg Smoking Cessation Counseling No; Number of years: 24; Started at age: 22.0; Stopped at age: 46; entered on: 02/26/19 Assessment and Plan No data available for this section
--- OUTSIDE RECORDS SUMMARY | 2019-05-14 19:06 | XMS REPORT | Summary of Care ---
Author Author [facility] Organization [facility] Address Unknown Phone Unavailable Encounter HQ Abigail(FIN) [id number] Date(s): 01/24/19 - 01/24/19 [facility] [address] [facility] [address] [place] [address]- Discharge Disposition: Home or Self Care Attending Physician: Carolyne Hogan MD Vital Signs Most recent to 1 oldest [Reference Range]: Height 160.02 cm (01/24/19 4:38 PM) Temperature Oral 97.7 DegF [96.4-99.1 DegF] (01/24/19 4:38 PM) Blood Pressure 110/59 mmHg [90-140/60-90 mmHg] (01/24/19 4:38 PM) Respiratory Rate 14 BRMIN [14-20 BRMIN] (01/24/19 4:38 PM) Peripheral Pulse 60 bpm Rate [60-100 bpm] (01/24/19 4:38 PM) Weight 47.273 kg (01/24/19 4:38 PM) Body Mass Index 18.46 m2 (01/24/19 4:38 PM) Problem List Condition Effective Dates Status [...] [employer] on 02/10/15. 4done at [facility] 5Data migrated from [employer] [...] 04/09/15. Originally documented as SULFA. Medications amLODIPine 5 mg oral tablet 5 mg=1 tab, PO, Daily, # 90 tab, 1 Refill(s), Pharmacy: [facility]/pharmacy #[id number] Start Date: 01/24/19 Status: Ordered Results No data available for [...] ALLERGIC REACTION. 3Result Comment: fluzone high dose [[id number]]. Migrated from OBS ; Data migrated from [employer] on 10/13/2015. 4Result Comment: fluzone (>3 yrs.) [[id number]]. Migrated from OBS ; Data migrated from [employer] on 10/13/2015. 5Result Comment: pneumovax. Migrated from OBS ; Data migrated from [employer] on 10/14/2015. 6Result Comment: historical. Migrated from OBS ; Data migrated from [employer] on 10/13/2015. Procedures Procedure Date Related Diagnosis [...] Type Response Employment/School Status: Retired. 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 Alcohol Past Smoking Status Former smoker; Type: Cigarettes; Previous treatment: None; Exposure to Tobacco Smoke None; Cigarette Smoking Last 365 Days No; Reg Smoking Cessation Counseling No; Number of years: 24; Started at age: 22.0; Stopped at age: 46; entered on: 01/24/19 Assessment and Plan No data available for this section
--- OUTSIDE RECORDS SUMMARY | 2019-05-14 19:06 | XMS REPORT | Summary of Care ---
Author Author [facility] Organization [facility] Address Unknown Phone Unavailable Encounter HQ Abigail(FIN) [id number] Date(s): 04/04/18 - 04/04/18 [facility] [address] [facility] [facility] [address], [address] [place], [place] [address]- [phone] Discharge Disposition: Home or Self Care Attending Physician: Carolyne Hogan MD Vital Signs Most recent to 1 oldest [Reference Range]: Height 160.02 cm (04/04/18 10:15 AM) Temperature Oral 96.9 DegF [96.4-99.1 DegF] (04/04/18 10:15 AM) Blood Pressure 118/59 mmHg [90-140/60-90 mmHg] (04/04/18 10:15 AM) Respiratory Rate 16 BRMIN [14-20 BRMIN] (04/04/18 10:15 AM) Peripheral Pulse 65 bpm Rate [60-100 bpm] (04/04/18 10:15 AM) Weight 44.091 kg (04/04/18 10:15 AM) Body Mass Index 17.22 m2 (04/04/18 10:15 AM) Problem List Condition Effective Dates Status [...] [employer] on 02/10/15. 4done at [facility] 5Data migrated from [employer] on 03/18/15. [...] topical 1% gel 4 gm=1 appl, TOP, BID, PRN Apply to affected area, # 100 gm, 1 Refill(s), [facility]: [id number] Start Date: 04/04/18 Status: Ordered DME Prescription See Instructions, MISC, ONCE, AFO, # 1 unit, 0 Refill(s) Start Date: 05/04/18 Stop Date: 06/12/18 Status: Discontinued tramadol 50 mg oral tablet 50 mg=1 tab, PO, Q8H, PRN Pain, # 60 tab, 0 Refill(s) Start Date: 04/04/18 Stop Date: 04/04/18 Status: Discontinued Results No data available for [...] ALLERGIC REACTION. 3Result Comment: fluzone high dose [[id number]]. Migrated from OBS ; Data migrated from [employer] on 10/13/2015. 4Result Comment: fluzone (>3 yrs.) [[id number]]. Migrated from OBS ; Data migrated from [employer] on 10/13/2015. 5Result Comment: pneumovax. Migrated from OBS ; Data migrated from [employer] on 10/14/2015. 6Result Comment: historical. Migrated from OBS ; Data migrated from [employer] on 10/13/2015. Procedures Procedure Date Related Diagnosis [...] Type Response Employment/School Status: Retired. 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 Alcohol Past Smoking Status Former smoker; Type: Cigarettes; Previous treatment: None; Exposure to Tobacco Smoke None; Cigarette Smoking Last 365 Days No; Reg Smoking Cessation Counseling No; Number of years: 24; Started at age: 22.0; Stopped at age: 46; entered on: 10/15/18 Assessment and Plan No data available for this section
--- OUTSIDE RECORDS SUMMARY | 2019-05-14 19:06 | XMS REPORT | Summary of Care ---
Author Author [facility] Organization [facility] Address Unknown Phone Unavailable Encounter HQ Abigail(FIN) [id number] Date(s): 05/10/18 - 05/11/18 [facility] [address] [facility] [address] [place] [address]- Vital Signs No data available for this [...] [employer] on 02/10/15. 4done at [facility] 5Data migrated from [employer] on 03/18/15. [...] ALLERGIC REACTION. 3Result Comment: fluzone high dose [[id number]]. Migrated from OBS ; Data migrated from [employer] on 10/13/2015. 4Result Comment: fluzone (>3 yrs.) [[id number]]. Migrated from OBS ; Data migrated from [...] Type Response Employment/School Status: Retired. 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 Alcohol Past Smoking Status Former smoker; Type: Cigarettes; Previous treatment: None; Exposure to Tobacco Smoke None; Cigarette Smoking Last 365 Days No; Reg Smoking Cessation Counseling No; Number of years: 24; Started at age: 22.0; Stopped at age: 46; entered on: 10/15/18 Assessment and Plan No data available for this section
--- OUTSIDE RECORDS SUMMARY | 2019-05-14 19:06 | XMS REPORT | Summary of Care ---
Author Author [facility] Organization [facility] Address Unknown Phone Unavailable Encounter ALICIA Hayes(WAGNER) [id number] Date(s): 05/01/19 - 05/01/19 [facility] [address] [place] [address]- [phone] Discharge Disposition: Home or Self Care Attending [...] from [employer] on 02/10/15. 4done at [facility] 5Data migrated from [employer] on [...] ALLERGIC REACTION. 3Result Comment: fluzone high dose [[id number]]. Migrated from OBS ; Data migrated from [employer] on 10/13/2015. 4Result Comment: fluzone (>3 yrs.) [[id number]]. Migrated from OBS ; Data migrated from [employer] on 10/13/2015. 5Result Comment: pneumovax. Migrated from OBS ; Data migrated from [employer] on 10/14/2015. 6Result Comment: historical. Migrated from OBS ; Data migrated from [employer] on 10/13/2015. Procedures Procedure Date Related Diagnosis [...] Alcohol Past Employment/School Status: Retired. 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 Smoking Status Former smoker; Type: Cigarettes; Previous treatment: None; Exposure to Tobacco Smoke None; Cigarette Smoking Last 365 Days No; Reg Smoking Cessation Counseling No; Number of years: 24; Started at age: 22.0; Stopped at age: 46; entered on: 04/16/19 Assessment and Plan No data available for this section
--- OUTSIDE RECORDS SUMMARY | 2019-05-14 19:06 | XMS REPORT | Summary of Care ---
Author Author [facility] Organization [facility] Address Unknown Phone Unavailable Encounter HQ Abigail(FIN) [id number] Date(s): 10/15/18 - 10/15/18 [facility] [address] [address]- Discharge Disposition: Home or Self Care Attending [...] from [employer] on 02/10/15. 4done at [facility] 5Data migrated from [employer] [...] rash Medications amLODIPine 10 mg oral tablet See Instructions, TAKE 1 TABLET BY MOUTH EVERY DAY, # 90 tab, 1 Refill(s) Start Date: 10/15/18 Stop Date: 01/24/19 Status: Discontinued Debrox 6.5% otic solution 5 drp, BOTH EARS, TID, X 10 day, # 15 ml, 0 Refill(s), Pharmacy: [facility]/pharmacy #[id number] Start Date: 10/15/18 Stop Date: 10/25/18 Status: Completed diclofenac topical 1% gel 4 gm=1 appl, TOP, QID, PRN for pain, # 100 gm, 2 Refill(s), Pharmacy: [id number] #[id number] Start Date: 10/15/18 Stop Date: 12/18/18 Status: Discontinued irbesartan 150 mg oral tablet 150 mg=1 tab, PO, Daily, # 30 tab, 0 Refill(s) Start Date: 10/15/18 Stop Date: 11/30/18 Status: Completed ONE TOUCH DELICA LANCETS N/A LANC See Instructions, # 100 ea, Refill(s) 2, USE TO TEST BLOOD GLUCOSE ONCE DAILY, P [facility]acy: [facility] Start Date: 11/29/18 Stop Date: 12/18/18 Status: Discontinued ONE TOUCH VERIO STRIPS N/A STRIPS See Instructions, # 100 ea, Refill(s) 2, USE TO TEST BLOOD GLUCOSE ONCE DAILY, P harmacy: [facility] [place] Start Date: 11/29/18 Stop Date: 12/18/18 Status: Discontinued tramadol 50 mg oral tablet [...] ALLERGIC REACTION. 3Result Comment: fluzone high dose [[id number]]. Migrated from OBS ; Data migrated from [email or web address] on 10/13/2015. 4Result Comment: fluzone (>3 yrs.) [[id number]]. Migrated from OBS ; Data migrated from [email or web address] on 10/13/2015. 5Result Comment: pneumovax. Migrated from OBS ; Data migrated from [email or web address] on 10/14/2015. 6Result Comment: historical. Migrated from OBS ; Data migrated from [email or web address] on 10/13/2015. 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 Smoking Status Former smoker; Type: Cigarettes; Previous treatment: None; Exposure to Tobacco Smoke None; Cigarette Smoking Last 365 Days No; Reg Smoking Cessation Counseling No; Number of years: 24; Started at age: 22.0; Stopped at age: 46; entered on: 04/16/19 Assessment and Plan No data available for this section
--- OUTSIDE RECORDS SUMMARY | 2019-05-14 19:07 | XMS REPORT | Summary of Care ---
Author Author [facility] Organization [facility] Address Unknown Phone Unavailable Encounter HQ Abigail(FIN) [id number] Date(s): 04/22/19 - 04/23/19 [facility] [address] [address]- Vital Signs No data available for this [...] from [employer] on 02/10/15. 4done at [facility] 5Data migrated from [employer] on [...] ALLERGIC REACTION. 3Result Comment: fluzone high dose [[id number]]. Migrated from OBS ; Data migrated from [employer] on 10/13/2015. 4Result Comment: fluzone (>3 yrs.) [[id number]]. 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 Smoking Status Former smoker; Type: Cigarettes; Previous treatment: None; Exposure to Tobacco Smoke None; Cigarette Smoking Last 365 Days No; Reg Smoking Cessation Counseling No; Number of years: 24; Started at age: 22.0; Stopped at age: 46; entered on: 04/16/19 Assessment and Plan No data available for this section
--- OUTSIDE RECORDS SUMMARY | 2019-05-14 19:07 | XMS REPORT ---
Author Author [facility] Address Unknown Phone Unavailable Care Team Providers Care Replenishment Specialist Name Role Phone Unavailable Unavailable Payers Payer Name Policy Type Policy Number Effective Date Expiration Date Problems This patient has no known problems. Allergies, Adverse Reactions, Alerts Allergy Name Allergy Type Status Severity Reaction(s) Onset Date Inactive Date Treating Clinician Comments Sulfa (Sulfonamide Antibiotics) DA Active OK 2018-10-25 00:00:00 codeine DA Active OK 2018-10-25 00:00:00 hydrocodone DA Active OK 2018-10-25 00:00:00 Sulfa (Sulfonamide Antibiotics) DA Active OK 2017-12-19 00:00:00 codeine DA Active OK 2017-12-19 00:00:00 hydrocodone DA Active OK 2017-12-19 00:00:00 Medications This patient has no known medications. Encounters Start Date/Time End Date/Time Encounter Type Admission Type Attending [facility] Care Department Encounter ID 2019-04-16 14:01:11 Outpatient [facility] [id number] 2019-05-01 08:43:00 2019-05-01 08:43:00 Outpatient [facility] MED [id number] 2019-04-22 09:12:00 2019-04-22 09:12:00 Outpatient [facility] MED [id number] 2018-12-27 10:22:00 2018-12-27 10:22:00 Outpatient [facility] MED [id number] Results Test Description Test Time Test Comments Text Results Atomic Results Result Comments - DOP ART SGL LEVEL TIA 2019-01-02 12:52:00 Name: CARLIE AMEZQUITA [facility] : 1935 Age/S: 83 / F [address] [place] [address] Unit #: [id number] Loc: [place] [address] Phys: Mateusz Craft MD Acct: [id number] Dis Date: Status: REG CLI PHONE #: [phone] Exam Date: 01/02/2019 1048 FAX #: [phone] Reason: I70.223, ATHEROSCLEROSIS OF [place] ARTERIES OF EXAMS: CPT CODE: [id number] DOP ART SGL LEVEL TIA [id number] RIGHT LOWER EXTREMITY ARTERIAL DOPPLER 01/02/2019 AT 1004 HOURS. CLINICAL HISTORY: Atherosclerosis. 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 Diabetes. COMPARISONS: Lower extremity arterial Doppler 04/09/2018. FINDINGS: Duplex sonographic evaluation of the right lower extremity arterial circulation and bypass graft was performed. RIGHT SIDE: Biphasic waveforms are seen in the right common femoral artery and femoral/bypass graft anastomosis. Biphasic waveforms are seen throughout the patent bypass graft. Monophasic waveforms are seen in the right posterior tibialis artery with biphasic waveforms in the dorsalis pedis artery. IMPRESSION: 1. Patent femorotibial bypass graft with preserved distal runoff into the dorsalis pedis artery. 2. Interval rastafari of antegrade monophasic flow in the right posterior tibialis artery, likely by collaterals. 3. No ankle brachial indices obtained. SL: ER-H at 1252 Reported and signed by: Grant Gupta M.D. CC: Carolyne Hogan MD; Mateusz Craft MD Technologist: Razia Lainez RDMS(OB)(BR) Trnscb Date/Time: 01/02/2019 (6602) [email or web address] Orig Print D/T: S: 01/02/2019 (9496) Probe: PAGE 1 Signed Report BASIC METABOLIC PANEL 2018-10-26 01:10:00 SODIUM (test code=NA) 141 mmol/L 136-145 POTASSIUM (test code=K) 4.0 mmol/L 3.5-5.1 CHLORIDE (test code=CL) 104.0 mmol/L 98-107 CARBON DIOXIDE (test code=CO2) 28.0 mmol/L 21-32 ANION GAP (test code=GAP) 13.0 10-20 GLUCOSE (test code=GLU) 101 mg/dL 74-106 BLOOD UREA NITROGEN (test code=BUN) 25 mg/dL 7-18 GLOMERULAR FILTRATION RATE (test code=GFR) > 60 mL/min >=60 Estimated GFR by using Modified MDRD formula.Chronic kidney disease is defined as either kidney damageor GFR <60 mL/min/1.73 m2 for >3 months. CREATININE (test code=CREAT) 0.60 mg/dL 0.55-1.02 Note change in reference range due to change in reagent. BUN/CREATININE RATIO (test code=BUN/CREA) 45.1 10-20 CALCIUM (test code=CA) 9.0 mg/dL 8.5-10.1 [id number] 01:10:00* Test Item Value Reference Range Comments TROPONIN-I (test code=TROPI) <0.015 ng/mL 0-0.045 CBC W/O [id number] 01:04:00* Test Item Value Reference Range Comments WHITE BLOOD CELL (test code=WBC) 6.9 K/mm3 4.5-12.5 RED BLOOD CELL (test code=RBC) 3.83 mill/mm3 3.7-5.2 HEMOGLOBIN (test code=HGB) 11.0 gram/dL 11.5-15.5 HEMATOCRIT (test code=HCT) 34.3 % 36.0-46.0 MEAN CELL VOLUME (test code=MCV) 89.6 fL 80-98 MEAN CELL HGB (test code=MCH) 28.7 picogram 27.0-33.0 MEAN CELL HGB CONCETRATION (test code=MCHC) 32.1 gram/dL 33.0-36.0 RED CELL DISTRIBUTION WIDTH (test code=RDW) 14.2 % 11.6-16.2 PLATELET COUNT (test code=PLT) 272 K/mm3 150-450 MEAN PLATELET VOLUME (test code=MPV) 10.4 fL 6.7-11.0 BASIC METABOLIC [id number] 00:58:00* Test Item Value Reference Range Comments SODIUM (test code=NA) 141 mmol/L 136-145 POTASSIUM (test code=K) 4.0 mmol/L 3.5-5.1 CHLORIDE (test code=CL) 104.0 mmol/L 98-107 CARBON DIOXIDE (test code=CO2) mmol/L 21-32 ANION GAP (test code=GAP) 10-20 GLUCOSE (test code=GLU) mg/dL 74-106 BLOOD UREA NITROGEN (test code=BUN) mg/dL 7-18 GLOMERULAR FILTRATION RATE (test code=GFR) mL/min >=60 CREATININE (test code=CREAT) mg/dL 0.55-1.02 BUN/CREATININE RATIO (test code=BUN/CREA) 10-20 CALCIUM (test code=CA) mg/dL 8.5-10.1 [id number] 00:58:00* Test Item Value Reference Range Comments TROPONIN-I (test code=TROPI) ng/mL 0-0.045 - XR CHEST 1 [id number] 00:15:00 FAX: Scott Moses MD [phone] [place]: St: [facility] FAX: Carolyne Phelan MD [phone] Name: CARLIE AMEZQUITA [facility] : 1935 Age/S: 83/F [address] [facility] Unit #: [id number] Loc: [place] [address] Phys: Scott Moses MD Acct: [id number] Dis Date: Status: REG ER PHONE #: [phone] Exam Date: 10/25/2018 2355 FAX #: [phone] Reason: CHEST PAIN EXAMS: CPT CODE: [id number] XR CHEST 1 V 70020 AFTER HOURS SERVICE ON: 10/26/2018 12:15 AM AP Portable Chest Location Code M12 HISTORY: CHEST PAIN FINDINGS: There are no infiltrates. There are no pleural effusions. There is no pneumothorax. Cardiac silhouette and mediastinum appear within normal limits. IMPRESSION: No active pulmonary findings. at 0015 Reported and signed by: Maddi Krueger M.D. CC: Scott Moses MD; Carolyne Hogan MD Technologist: Evelyn Farias Trnohrd Date/Time/By: 10/26/2018 (0015) : By: [email or web address] Orig Print D/T: S: 10/26/2018 (0053) PAGE 1 Signed Report
[2019-05-14 20:48] LABS: BASOPHILS % 0.6 % (0.0-1.0); EOSINOPHILS # (AUTO) 0.2 (0.0-0.4); EOSINOPHILS % 3.3 % (0.0-6.0); HEMATOCRIT 37.5 % (34.2-44.1); HEMOGLOBIN 12.6 g/dL (12.0-16.0); LYMPHOCYTES # (AUTO) 1.8 (1.0-3.2); LYMPHOCYTES % 24.4 % (18.0-39.1); MEAN CORPUSCULAR HEMOGLOBIN 29.3 pg (28-32); MEAN CORPUSCULAR HGB CONC 33.6 g/dL (31-35); MEAN CORPUSCULAR VOLUME 87.2 fL (81-99); MONOCYTES # (AUTO) 0.6 (0.2-0.8); MONOCYTES % 8.2 % (4.4-11.3); NEUTROPHILS # (AUTO) 4.6 (2.1-6.9); NEUTROPHILS % 63.4 % (38.7-80.0); PLATELET COUNT 323 x10e3/uL (140-360); RED CELL DISTRIBUTION WIDTH 15.7 % (11.7-14.4)
[2019-05-14 21:05] LABS: ALANINE AMINOTRANSFERASE 8 IU/L (0-55); ALBUMIN 4.2 g/dL (3.5-5.0); ALBUMIN/GLOBULIN RATIO 1.2 (0.8-2.0); ALKALINE PHOSPHATASE 123 IU/L (40-150); ANION GAP 14.1 mmol/L (8-16); BLOOD UREA NITROGEN 20 mg/dL (7-26); BUN/CREATININE RATIO 28 (6-25); CARBON DIOXIDE 27 mmol/L (22-29); CHLORIDE 98 mmol/L (98-107); CREATININE, SERUM 0.72 mg/dL (0.57-1.11); EST GLOMERULAR FILTRATION RATE > 60 ML/MIN (60-); GLUCOSE 116 mg/dL (74-118); POTASSIUM 4.1 mmol/L (3.5-5.1); SODIUM 135 mmol/L (136-145)
--- NOTE | 2019-05-14 22:56 | Diagnostic Imaging Report ---
Abdomen/KUB INDICATION: Abdominal pain, hernia ^ABDOMINAL PAIN ^20190514 ^2215 COMPARISON: None. FINDINGS: Portable, supine image obtained at 2205 hours. Patient's arm overlies the right upper quadrant Medical Devices: Cholecystectomy clips in the right upper quadrant and vascular clips in the right inguinal region. Bowel: Unremarkable bowel gas pattern. No dilated bowel loops. Large amount of stool throughout the colon. No pneumatosis. Free air: None Abdominal calcifications: Arterial calcifications. No calcifications over the renal shadows. Organomegaly: None Lung bases: Clear Bones: Mild degenerative changes of the spine. IMPRESSION: Large amount of stool throughout the colon. No evidence of bowel obstruction. Signed by: Dr. Sofy Lux MD on 05/14/2019 10:53 PM
[2019-05-15] MEDS ORDERED: ONDANSETRON HCL INJ 2MG/ML 2ML 2 MG/ML VIAL IV STA (00:40)
[2019-05-15] MEDS ORDERED: TRAMADOL HCL 50 MG TAB PO ONE (00:45)
--- NOTE | 2019-05-15 00:45 | NUR ---
daughter pressed call [facility] requesting bedpan for patient. offered to assist to restroom, daughter refuses, states she needs bedpan. states at home she goes to restroom to void but wants bedpan now because she has been at hospital since 1 oclock today and her leg hurts. pt placed on bedpan per daughter request
== END 2019-05-15 01:10 | disposition home or self-care (01) ==
LOC: ER 18:56
DX: R10.10 Upper abdominal pain, unspecified (principal); R11.0 Nausea; K43.9 Ventral hernia without obstruction or gangrene; M79.601 Pain in right arm; G89.29 Other chronic pain; I10 Essential (primary) hypertension; E11.9 Type 2 diabetes mellitus without complications; E03.9 Hypothyroidism, unspecified; Z95.1 Presence of aortocoronary bypass graft
CPT/HCPCS: 36415; 74018; 80053; 85025; 99284; J2405